=== PATIENT | male | born 1960 | race Caucasian/White ===

== ENCOUNTER → 2020-03-17 | Outpatient (CLI) | payer OTHER ==
--- NOTE | 2020-03-17 13:20 | ECHOS ---
STRESS ECHOCARDIOGRAM LUMASON: - Vial INDICATIONS: Chest pain. MEDICATIONS: Simvestatin, ASA. BASELINE HEART RATE: 77 BASELINE BLOOD PRESSURE: 112/55 MAXIMUM HEART RATE: 133 MAXIMUM BLOOD PRESSURE: 132/89 85% MPHR: 135 100% MPHR: 159 METS: MAXIMUM STAGE REACHED: 2 TOTAL EXERCISE TIME: 5:15 CLINICAL INFORMATION: Baseline rhythm is sinus mechanism, rate 77, normal axis and intervals. Normal echocardiogram. Baseline blood pressure 112/55 mmHg. Patient exercised on Parveen protocol for 5 minute 15 seconds, reaching a peak rate 133 beats per minute which is equal to 85% maximum predicted heart rate. Peak blood pressure 132/89 mmHg. Test was terminated due to fatigue. The patient had chest discomfort during exercise. He had 1- 1/[address]-segment depression inferolateral leads that improved gradually in recovery. FINDINGS: Baseline echocardiogram revealed normal wall motion. At peak exercise, there was a moderately size area of hypokinesis involving the anteroapical and anteroseptal wall with improvement and recovery. CONCLUSION: 1. Average exercise tolerance with positive electrocardiograph stress testing and abnormal electrocardiographic changes. 2. Abnormal stress echocardiogram with evidence of stress-induced ischemia involving the anteroseptal and anteroseptal wall consistent with obstructive disease involving the LAD territory. MMODL / IJN: [id number] /
--- NOTE | 2020-03-17 14:22 | HP ---
HISTORY AND PHYSICAL Mr. Lang is a 60-year-old male with known history of hyperlipidemia who for the last 2 months has been complaining of exertional chest discomfort associated with dyspnea. He subsequently was referred to undergo stress echocardiogram where he exercised for 6 minutes, but he had chest discomfort, EKG changes and evidence of stress-induced ischemia involving the anteroapical and anteroseptal wall. The patient symptoms has been an exertion pattern. He has no rest pain. He has some dizziness, no significant palpitation. No peripheral edema. No PND, orthopnea. He has no prior history of cardiac disease. His coronary risk factors are remarkable for the hyperlipidemia. He is nonsmoker, nondiabetic. No history of documented hypertension. MEDICATION: At home include simvastatin and Flomax. REVIEW OF SYSTEM: RESPIRATORY SYSTEM: No history of documented asthma, emphysema or bronchitis. GI SYSTEM: No recent GI bleeding, no peptic ulcer disease. SYSTEM: No dysuria or hematuria. NERVOUS SYSTEM: No history of stroke or seizure. PHYSICAL EXAMINATION: He is a 60-year-old male, alert, oriented, in no apparent distress. Blood pressure 112/50 with a heart rate in the 70s. HEAD: Normocephalic. EYES: Sclerae nonicteric. NECK: Good upstroke, no bruit, no jugular venous distention. LUNGS: Clear to auscultation. HEART: Regular rate and rhythm, S1, S2. No S3. No murmur or rub. ABDOMEN: Soft, nontender, positive bowel sounds, no organomegaly. EXTREMITIES: No edema, intact pulses. IMPRESSION: 1. Angina pectoris exertional pattern with positive stress echocardiogram in the LAD territory. 2. History of hyperlipidemia. RECOMMENDATION: In view of the finding and the results of his testing, I have recommended proceeding with coronary angiography to assess his status and guide his treatment. The rationale behind the procedures, risks, and complication were discussed with the patient who is in full understanding and agreement. The patient will be started on metoprolol tartrate 25 mg twice a day, and he will be scheduled to undergo the procedure on March 18. MMBRETTL / KODYN: [id number] /
== END | disposition home or self-care (01) ==
LOC: RADNMMAIN 09:44
PROVIDERS: ATTEND Family Medicine
DX: I99.8 Other disorder of circulatory system (principal)
CPT/HCPCS: 93351

== ENCOUNTER → 2020-03-17 | Outpatient (CLI) | payer OTHER ==
[2020-03-17 13:28] LABS: HCT 48.2 % (39.0-53.0); MCH 28.9 pg (25.0-35.0); MCHC 33.2 g/dL (31.0-37.0); MCV 87.2 fL (80.0-100.0); Mean Platelet Volume 7.1; Platelet Count 252 k/uL (150-450); RBC 5.53 m/uL (4.30-5.90); RDW 13.3 % (11.5-15.5); WBC 6.5 k/uL (3.8-10.6)
[2020-03-17 18:35] LABS: African American GFR (CKD) 93.7 (60.0-200.0); Albumin 4.5 g/dL (3.80-4.90); Albumin/Globulin Ratio 1.8 (1.60-3.17); Anion Gap 7.3 mmol/L (4.00-12.00); Calcium 9.6 mg/dL (8.7-10.3); Carbon Dioxide 27.7 mmol/L (21.6-31.8); Globulin 2.5 g/dL (1.6-3.3); Non-African American GFR(CKD) 80.9 (60.0-200.0); Potassium 4.5 mmol/L (3.5-5.5); Total Bilirubin 0.7 mg/dL (0.3-1.2)
== END | disposition home or self-care (01) ==
LOC: LABWHC1 12:31
PROVIDERS: ATTEND Internal Medicine Interventional Cardiology
DX: I20.9 Angina pectoris, unspecified (principal)
CPT/HCPCS: 36415; 80053; 85027

== ENCOUNTER 2020-03-18 09:18 | Inpatient (IN) | payer OTHER ==
[~2020-03-18 09:18] MED LIST: ALPRAZolam 0.5 MG TAB PO PRN; ASPIRIN 325 MG TAB PO STA; ATORVASTATIN 80 MG TAB PO STA; NITROGLYCERIN SL TABS 0.4 MG TAB SUBLINGUAL PRN; SODIUM CHLORIDE 0.9% 1,000 ML in EMPTY BAG 1 BAG IV ONE
[2020-03-18] MEDS ORDERED: fentaNYL (PF) 50 MCG/ML 2 ML AMP ONE (11:01)
[2020-03-18] MEDS ORDERED: LIDOCAINE 1% INJ 10MG/ML (20 ML MDV) ONE (11:01)
[2020-03-18] MEDS ORDERED: VERAPAMIL 2.5 MG/ML 2 ML AMP ONE (11:01)
[2020-03-18] MEDS ORDERED: MIDAZOLAM 2 MG/2 ML VIAL IV ONE (11:15)
[2020-03-18] MEDS ORDERED: fentaNYL (PF) 50 MCG/ML 2 ML AMP IV ONE (11:15)
[2020-03-18] MEDS ORDERED: LIDOCAINE 1% INJ 10MG/ML (20 ML MDV) SQ ONE (11:19)
[2020-03-18] MEDS ORDERED: VERAPAMIL SYRINGE (5 MG/10 ML) INTRAARTER ONE (11:20)
[2020-03-18] MEDS ORDERED: HEPARIN SODIUM 1,000 UN/ML (10ML VL) IV ONE (11:27)
[2020-03-18] MEDS ORDERED: IOPAMIDOL-370 125ML BTL INJ ONE (11:31)
[2020-03-18] MEDS ORDERED: RX INFO: IV CONTRAST WAS GIVEN 1 EACH MISC MISCELLANE PRN (11:51)
[2020-03-18] MEDS ORDERED: HEPARIN SODIUM,PORCINE 5,000 UNIT/ML 1 ML VIAL IV PRN (11:53)
[2020-03-18] MEDS ORDERED: SODIUM CHLORIDE 0.9% 1,000 ML IV SCH (12:00)
[2020-03-18] MEDS: NITROGLYCERIN OINT 1 INCH/GM PACKET TOPICAL SCH ×3 (12:37→22:53)
[2020-03-18 12:45] LABS: Basophils # (A) 0.1 k/uL (0-0.2); Basophils % (A) 1 %; Eosinophils # (A) 0.3 k/uL (0-0.7); Eosinophils % (A) 3 %; HCT 49.2 % (39.0-53.0); Lymphocytes # (A) 2.5 k/uL (1.0-4.8); Lymphocytes % (A) 30 %; MCH 28.2 pg (25.0-35.0); MCHC 32.5 g/dL (31.0-37.0); MCV 86.7 fL (80.0-100.0); Mean Platelet Volume 6.9; Monocytes # (A) 0.6 k/uL (0-1.0); Monocytes % (A) 7 %; Neutrophils # (A) 4.5 k/uL (1.3-7.7); Neutrophils % (A) 55 %; Platelet Count 278 k/uL (150-450); RBC 5.67 m/uL (4.30-5.90); RDW 13.4 % (11.5-15.5); WBC 8.3 k/uL (3.8-10.6)
[2020-03-18] MEDS ORDERED: MD COMMUNICATION TO PHARMACY 1 EACH MISC PO ONE (12:50)
[2020-03-18 13:12] LABS: Prothrombin Time 10.8 sec (9.0-12.0)
[2020-03-18 13:28] LABS: Partial Thromboplastin Time 97.6 sec (22.0-30.0)
[2020-03-18 14:16] LABS: ALT 23 U/L (4-49); AST 28 U/L (17-59); African American GFR (CKD) >90 (>60 ml/min/1.73 sqM); Albumin 4.4 g/dL (3.5-5.0); Alkaline Phosphatase 60 U/L (38-126); Anion Gap 9 mmol/L; Blood Urea Nitrogen 12 mg/dL (9-20); Calcium 9.6 mg/dL (8.4-10.2); Carbon Dioxide 26 mmol/L (22-30); Chloride 105 mmol/L (98-107); Cholesterol 177 mg/dL (<200); Glucose 101 mg/dL (74-99); HDL Cholesterol 57 mg/dL (40-60); LDL Cholesterol,Calculated 113 mg/dL (0-99); Magnesium 2.2 mg/dL (1.6-2.3); Non-African American GFR(CKD) 82 (>60 ml/min/1.73 sqM); Potassium 4.7 mmol/L (3.5-5.1); Sodium 140 mmol/L (137-145); Total Bilirubin 0.7 mg/dL (0.2-1.3); Total Protein 7.5 g/dL (6.3-8.2); Triglycerides 35 mg/dL (<150)
--- NOTE | 2020-03-18 14:46 | P.GSCN ---
History of Present Illness Consult date: 03/18/20 Reason for Consult: Coronary artery disease Requesting physician: Wen Bush History of present illness: Knuckler a 60-year-old active gentleman who follows on an outpatient basis with Dr. River. His only significant medical history includes hyperlipidemia and BPH. He is a lifelong nonsmoker. Apparently he has been having exertional chest pain and shortness of breath over the previous 2 months. He states that this pain has mostly been while working and is not too bad at home. He denies any chest pain or shortness of breath at rest. He underwent stress echocardiogram yesterday, however this had to be stopped at 6 minutes as the patient had chest discomfort as well as EKG changes suggestive of stress-induced ischemia involving the anteroapical and anteroseptal wall. He was recommended to undergo heart catheterization by Dr. Bush which was completed today and which demonstrated triple-vessel coronary artery disease with proximal LAD stenosis 99%, circumflex stenosis 90%, and RCA stenosis 70%. He was admitted to the hospital with consultation placed to Dr. Hdez from cardiothoracic surgery for surgical revascularization. Review of Systems Review of systems was completed and was negative except as noted - Cardiovascular Reports as per HPI, Reports chest pain, Reports dyspnea on exertion Past Medical History Past Medical History: Cancer, Chest Pain / Angina, GERD/Reflux, Hyperlipidemia, Prostate Disorder Additional Past Medical History / Comment(s): SOB w/exertion & chest pain for a few months, skin cancer History of Any Multi-Drug Resistant Organisms: None Reported Past Surgical History: Cholecystectomy, Orthopedic Surgery Additional Past Surgical History / Comment(s): arthroscopy knee Past Anesthesia/Blood Transfusion Reactions: No Reported Reaction Past Psychological History: No Psychological Hx Reported Smoking Status: Never smoker Past Alcohol Use History: Occasional Past Drug Use History: None Reported - Past Family History Mother Family Medical History: CVA/TIA Father Family Medical History: Cancer Additional Family Medical History / Comment(s): colon cancer. Medications and Allergies Home Medications Medication Instructions Recorded Confirmed Type Ascorbic Acid [Vitamin C] 500 mg PO DAILY 03/17/20 03/17/20 History Aspirin 81 mg PO DAILY 03/17/20 03/18/20 History Atorvastatin [Lipitor] 10 mg PO HS 03/17/20 03/18/20 History Cholecalciferol [Vitamin D3 (25 5,000 unit PO DAILY 03/17/20 03/18/20 History Mcg = 1000 Iu)] Famotidine [Pepcid] 20 mg PO BID 03/17/20 03/18/20 History Metoprolol Tartrate [Lopressor] 25 mg PO BID 03/17/20 03/18/20 History [place]-3 Fatty Acids/Fish Oil [Fish 1 each PO DAILY 03/17/20 03/18/20 History Oil 1,000 mg Softgel] Tamsulosin HCl [Flomax] 0.4 mg PO HS 03/17/20 03/18/20 History Ubidecarenone [Co Q-10] 100 mg PO DAILY 03/17/20 03/18/20 History Allergies Allergy/AdvReac Type Severity Reaction Status Date / Time Sulfa (Sulfonamide Allergy Unknown Verified 03/18/20 09:59 Antibiotics) sulfamethoxazole Allergy Unknown Verified 03/18/20 09:59 [From Bactrim] trimethoprim [From Bactrim] Allergy Unknown Verified 03/18/20 09:59 Surgical - Exam Vital Signs Temp Pulse Resp BP Pulse Ox 98.5 F 55 L 18 122/69 98 03/18/20 10:05 03/18/20 10:05 03/18/20 10:05 03/18/20 10:05 03/18/20 10:05 - General well developed, well nourished, no distress, no pain - Eyes normal ocular movement - ENT no hearing loss - Neck no masses, no bruits, trachea midline - Respiratory Lungs sounds clear bilaterally. Respirations even, nonlabored. Currently on room air with oxygen saturation 95%. No chest wall deformities. No clubbing or cyanosis present. - Cardiovascular S1, S2 present. Regular rate and rhythm, sinus rhythm on telemetry. Palpable peripheral pulses bilaterally. No edema present. No calf pain or tenderness noted. - Abdomen Abdomen: soft, non tender, bowel sounds - Genitourinary Deferred - Rectum Deferred - Integumentary no rash, no growths, no abnormal pigmentation - Neurologic normal coordination, normal sensation - Musculoskeletal normal posture - Psychiatric oriented to time, oriented to person, oriented to place, speech is normal, memory intact Results - Labs 03/18/20 12:29 03/18/20 12:29 Abnormal Lab Results - Last 24 Hours (Table) 03/18/20 03/18/20 Range/Units 12:29 12:29 APTT 97.6 H (22.0-30.0) sec Glucose 101 H (74-99) mg/dL LDL Cholesterol, Calc 113 H (0-99) mg/dL Diabetes panel 03/18/20 Range/Units 12:29 Sodium 140 (137-145) mmol/L Potassium 4.7 (3.5-5.1) mmol/L Chloride 105 (98-107) mmol/L Carbon Dioxide 26 (22-30) mmol/L BUN 12 (9-20) mg/dL Creatinine 0.99 (0.66-1.25) mg/dL Glucose 101 H (74-99) mg/dL Calcium 9.6 (8.4-10.2) mg/dL AST 28 (17-59) U/L ALT 23 (4-49) U/L Alkaline Phosphatase 60 (38-126) U/L Total Protein 7.5 (6.3-8.2) g/dL Albumin 4.4 (3.5-5.0) g/dL Triglycerides 35 (<150) mg/dL HDL Cholesterol 57 (40-60) mg/dL Calcium panel 03/18/20 Range/Units 12:29 Calcium 9.6 (8.4-10.2) mg/dL Albumin 4.4 (3.5-5.0) g/dL Pituitary panel 03/18/20 Range/Units 12:29 Sodium 140 (137-145) mmol/L Potassium 4.7 (3.5-5.1) mmol/L Chloride 105 (98-107) mmol/L Carbon Dioxide 26 (22-30) mmol/L BUN 12 (9-20) mg/dL Creatinine 0.99 (0.66-1.25) mg/dL Glucose 101 H (74-99) mg/dL Calcium 9.6 (8.4-10.2) mg/dL Adrenal panel 03/18/20 Range/Units 12:29 Sodium 140 (137-145) mmol/L Potassium 4.7 (3.5-5.1) mmol/L Chloride 105 (98-107) mmol/L Carbon Dioxide 26 (22-30) mmol/L BUN 12 (9-20) mg/dL Creatinine 0.99 (0.66-1.25) mg/dL Glucose 101 H (74-99) mg/dL Calcium 9.6 (8.4-10.2) mg/dL Total Bilirubin 0.7 (0.2-1.3) mg/dL AST 28 (17-59) U/L ALT 23 (4-49) U/L Alkaline Phosphatase 60 (38-126) U/L Total Protein 7.5 (6.3-8.2) g/dL Albumin 4.4 (3.5-5.0) g/dL - Imaging Additional studies: Heart catheterization films were reviewed with Dr. Hdez Assessment and Plan Assessment: 1. Coronary artery disease 2. Hyperlipidemia 3. BPH 4. Lifelong nonsmoker Plan: The patient was seen and examined at the bedside. His chart and heart catheterization films were reviewed with Dr. Hdez. The usual perioperative course of cardiac surgery was discussed with the patient and his , risks and benefits were reviewed, all questions were answered. Preoperative testing was initiated. Once completed we will calculate STS risk score and discuss with the patient and his . Recommend maximizing medical therapy with aspirin, statin, beta april. Tentatively we plan to perform myocardial revascularization with left internal mammary artery and endoscopic vein harvest as well as intraoperative transesophageal echocardiogram on March [address] Hdez pending the outcome of preoperative testing. Medical management of other comorbidities per primary care service. More recommendations to follow. Thank you Dr. Bush for this consult. We look forward to working with you in the care of your patient. Time with Patient: Greater than 30
--- NOTE | 2020-03-18 14:51 | US ---
EXAMINATION TYPE: US carotid duplex BILAT DATE OF EXAM: 03/18/2020 COMPARISON: NONE CLINICAL HISTORY: 60-year-old male Pre-Op Cardiac Surgery. No h/o stroke TECHNIQUE: Carotid duplex ultrasound examination. Indirect Doppler criteria was utilized. FINDINGS: EXAM MEASUREMENTS: RIGHT: Peak Systolic Velocity (PSV) cm/sec ----- Right CCA: 55.5 ----- Right ICA: 98.2 ----- Right ECA: 93.8 ICA/CCA ratio: 1.8 RIGHT: End Diastole cm/sec ----- Right CCA: 13.6 ----- Right ICA: 35.5 ----- Right ECA: 10.2 LEFT: Peak Systolic Velocity (PSV) cm/sec ----- Left CCA: 79.7 ----- Left ICA: 83.1 ----- Left ECA: 48.1 ICA/CCA ratio: 1.0 LEFT: End Diastole cm/sec ----- Left CCA: 16.3 ----- Left ICA: 30.8 ----- Left ECA: 11.8 VERTEBRALS (direction of flow): Right Vertebral: Antegrade Left Vertebral: Antegrade Rhythm: Normal Electroplating Sales Representative notes: Mild homogeneous plaque with no significant stenosis seen. IMPRESSION: No hemodynamically significant internal carotid artery stenosis on either side. Criteria for Assigning % of Stenosis / Diameter reduction (Estimation based on the indirect measurements of the internal carotid artery velocities (ICA PSV). 1. Normal (no stenosis)=ICA PSV < 125 cm/s: ratio < 2.0: ICA EDV<40 cm/s. 2. Less than 50% stenosis=ICA PSV < 125 cm/s: ratio < 2.0: ICA EDV<40 cm/s. 3. 50 to 69% stenosis=ICA PSV of 125 to 230 cm/s: ration 2.0 ? 4.0: ICA EDV 40-100 cm/s. 4. Greater than 70% stenosis to near occlusion= ICA PSV > 230 cm/s: ratio > 4.0: ICA EDV > 100 cm/s. 5. Near occlusion= ICA PSV velocities may be low or undetectable: variable ratio and ICA EDV. 6. Total occlusion=unable to detect flow.
--- NOTE | 2020-03-18 16:01 | XR ---
EXAMINATION TYPE: XR chest 2V DATE OF EXAM: 03/18/2020 COMPARISON: Chest x-ray September 30, 2010. HISTORY: Preoperative cardiac surgery. TECHNIQUE: Frontal and lateral views of the chest are obtained. FINDINGS: There is some chronic parenchymal change bilaterally without suspicious new focal air spac e opacity, pleural effusion, or pneumothorax seen. The cardiac silhouette size remains within normal limits. The osseous structures are intact. Cholecystectomy clips noted on lateral view. IMPRESSION: Chronic changes without acute pulmonary process.
[2020-03-18 16:22] LABS: Appearance,Urine Clear (Clear); Bilirubin,Urine Negative (Negative); Blood,Urine Negative (Negative); Color,Urine Light Yellow; Glucose,Urine (UA) Negative (Negative); Ketones,Urine Negative (Negative); Leukocyte Esterase,Urine Negative (Negative); Nitrite,Urine Negative (Negative); PH, Urine 7.5 (5.0-8.0); Protein,Urine Negative (Negative); Specific Gravity,Urine 1.042 (1.001-1.035); Urobilinogen,Urine <2.0 mg/dL (<2.0)
--- NOTE | 2020-03-18 16:26 | LTR ---
DATE OF SERVICE: 03/18/2020 RE: Raúl Lang Dear Dr. River; I had the pleasure to perform cardiac catheterization on Mr. Lang at [facility] on March 18, 2020 and a full copy of the procedure noted will be forwarded to you. In brief, he was found to have severe triple-vessel coronary artery disease and based on those findings, I recommend proceeding with evaluation for coronary artery bypass grafting, I will keep you updated on his progress and thank you again for allowing me to participate in this patient's care. Please feel free to call for any questions. Sincerely yours, MD RAHEEL AllenL / KODYN: [id number] /
--- NOTE | 2020-03-18 16:26 | CC ---
CARDIAC CATHETERIZATION REPORT Mr. Lang is a 60-year-old male with known history of hyperlipidemia, who has been complaining of exertional chest discomfort, underwent a stress echocardiogram,. revealed evidence of anteroseptal and anteroapical hypokinesis. In view of that, recommendation made regarding cardiac catheterization. The procedures, risks, and complication were discussed with the patient who is in full understanding and agreement. PROCEDURE: Patient was brought to laborer pipeline in the fasting semi-sedated state after receiving fentanyl and Benadryl and achieving moderate conscious sedated state. Using Xylocaine anesthesia and Seldinger technique, a 6-Armenian sheath was introduced in the right radial artery. Selective right and left coronary angiography performed using 5-Armenian 3.5 bend right and left Moe catheter, multiple views of the coronary artery including hemiaxial views obtained. Following that, 5-Armenian tight pigtail catheter was introduced into the left ventricle and a 30-degree HINES view of the left ventricle was obtained. Following that, catheter and sheath were removed. Hemostasis was obtained with deployment of a TR band. There was no immediate complication. Patient is returned to his room in stable condition. Of note, the patient received 5000 units of intravenous heparin as well as intra-arterial verapamil. FINDINGS: LEFT MAIN: This is a large-sized vessel, bifurcating into left circumflex, left anterior descending artery. Left main coronary artery has no evidence of high-grade stenosis. LEFT ANTERIOR DESCENDING ARTERY: This is a large-sized vessel, reaching toward the apex with a wraparound apex segment, giving rise to a large diagonal branch proximally. At the takeoff of the diagonal branch, there is a 99% stenosis involving the takeoff of the diagonal branch. The rest of the vessel has mild intimal disease without any evidence of high-grade stenosis. LEFT CIRCUMFLEX: This is a nondominant vessel, moderate in caliber, giving rise to 3 obtuse marginal branches, the first one is the largest in caliber, the first obtuse marginal branch has a 94% stenosis at the takeoff. There is intimal disease beyond that without any evidence of high-grade stenosis. RIGHT CORONARY ARTERY: This is a dominant vessel, large in caliber, bifurcating into PDA and posterolateral segment and branches. The right coronary artery proximally has a 70% stenosis. There is intimal disease throughout the course of the LAD of the right coronary artery without any evidence of high-grade stenosis. The PLV has an an area of stenosis of 70%-80%. The rest of the vessel has intimal disease without any evidence of high-grade stenosis. LEFT VENTRICULOGRAM: Left ventriculogram was performed in 30-degree HINES view and revealed mild mid anterior wall hypokinesis. The estimated ejection fraction is 50%. There was no significant mitral regurgitation. HEMODYNAMICS: There was no gradient across the aortic valve. The left ventricular end- diastolic pressure was 16-18 mmHg. CONCLUSION: 1. Severe triple-vessel coronary disease. 2. Minimally impaired left ventricular systolic function. RECOMMENDATION: In view of finding anatomy, I recommend proceeding with evaluation for coronary artery bypass grafting. The findings as well as recommendations were discussed with the patient and his family and they are in full understanding and agreement. Duration of sedation of 16 minutes. MMBRETTL / IJN: [id number] /
[2020-03-18] MEDS: FAMOTIDINE 20 MG TAB PO SCH (17:54)
--- NOTE | 2020-03-18 18:24 | ECHOF ---
Referral Reason:preop cabg MEASUREMENTS -------- HEIGHT: 180.3 cm WEIGHT: 95.3 kg BP: RVIDd: 3.1 cm (< 3.3) IVSd: 1.2 cm (0.6 - 1.1) LVIDd: 4.6 cm (3.9 - 5.3) LVPWd: 1.0 cm (0.6 - 1.1) IVSs: 1.7 cm LVIDs: 1.8 cm LVPWs: 1.7 cm LAESV Index (A-L): 14.49 ml/m Ao Diam: 2.8 cm (2.0 - 3.7) AV Cusp: 2.2 cm (1.5 - 2.6) LA Diam: 2.4 cm (2.7 - 3.8) MV EXCURSION: 8.330 mm (> 18.000) MV EF SLOPE: 55 mm/s (70 - 150) EPSS: 0.9 cm MV E Elias: 0.72 m/s MV DecT: 186 ms MV A Elias: 0.69 m/s MV E/A Ratio: 1.04 RAP: 5.00 mmHg RVSP: 9.06 mmHg TAPSE: 16.96 mm FINDINGS -------- Sinus rhythm. This was a technically good study. The left ventricular size is normal. There is mild concentric left ventricular hypertrophy. Overa ll left ventricular systolic function is normal with, an EF between 55 - 60 %. The diastolic fillin g pattern is normal for the age of the patient 11.13. The right ventricle is normal in size. Normal LA size by volume 22+/-6 ml/m2. The right atrial size is normal. Interatrial and interventricular septum intact. The aortic valve is trileaflet, and appears structurally normal. No aortic stenosis or regurgitation. The mitral valve is normal. There is trace mitral regurgitation. The tricuspid valve appears structurally normal. Trace tricuspid regurgitation present. Right reinaldo tricular systolic pressure is normal at < 35 mmHg. There is no pulmonic regurgitation present. The aortic root size is normal. The inferior vena cava is mildly dilated. There is no pericardial effusion. CONCLUSIONS -------- 1. There is mild concentric left ventricular hypertrophy. 2. Overall left ventricular systolic function is normal with, an EF between 55 - 60 %. 3. The diastolic filling pattern is normal for the age of the patient 11.13 4. Normal LA size by volume 22+/-6 ml/m2. 5. The aortic valve is trileaflet, and appears structurally normal. No aortic stenosis or regurgitati on. 6. There is trace mitral regurgitation. 7. Trace tricuspid regurgitation present. 8. The inferior vena cava is mildly dilated. 9. There is no pericardial effusion. CONSULTING ANALYST: Gilma Estrada RDCS
[2020-03-18] MEDS: HEPARIN SOD,PORK IN 0.45% NACL 25,000 UNIT in 0.45% NACL 1 250ML.BAG IV SCH (18:47)
[2020-03-18] MEDS: METOPROLOL TARTRATE 25 MG TAB PO SCH (20:47)
[2020-03-18] MEDS: TAMSULOSIN 0.4 MG CAP.ER.24H PO SCH (20:47)
[2020-03-18] MEDS: MUPIROCIN 2% OINT 22 GM TUBE NASAL SCH (20:47)
[2020-03-18 20:57] LABS: Hemoglobin A1C 6.2 % (4.0-6.0)
[2020-03-19] MEDS: ALPRAZolam 0.25 MG TAB PO PRN ×2 (01:42→23:19)
[2020-03-19 03:29] LABS: Hepatitis A Antibody IgM Non-Reactive (Non-Reactive); Hepatitis B Core IgM Non-Reactive (Non-Reactive); Hepatitis B Surface Antigen Non-Reactive (Non-Reactive); Hepatitis C IgG Antibody Non-Reactive (Non-Reactive)
[2020-03-19 07:58] LABS: Basophils # (A) 0.1 k/uL (0-0.2); Basophils % (A) 1 %; Eosinophils # (A) 0.3 k/uL (0-0.7); Eosinophils % (A) 3 %; HCT 46.7 % (39.0-53.0); HGB 14.8 gm/dL (13.0-17.5); Lymphocytes # (A) 2.3 k/uL (1.0-4.8); Lymphocytes % (A) 24 %; MCH 27.7 pg (25.0-35.0); MCHC 31.8 g/dL (31.0-37.0); Mean Platelet Volume 7.2; Monocytes # (A) 0.7 k/uL (0-1.0); Monocytes % (A) 7 %; Neutrophils # (A) 5.8 k/uL (1.3-7.7); Neutrophils % (A) 62 %; Platelet Count 249 k/uL (150-450); RBC 5.36 m/uL (4.30-5.90); RDW 13.5 % (11.5-15.5); WBC 9.5 k/uL (3.8-10.6)
[2020-03-19 08:30] LABS: African American GFR (CKD) >90 (>60 ml/min/1.73 sqM); Anion Gap 6 mmol/L; Blood Urea Nitrogen 15 mg/dL (9-20); Calcium 9.3 mg/dL (8.4-10.2); Carbon Dioxide 25 mmol/L (22-30); Chloride 106 mmol/L (98-107); Glucose 102 mg/dL (74-99); Non-African American GFR(CKD) 90 (>60 ml/min/1.73 sqM); Potassium 4.4 mmol/L (3.5-5.1); Sodium 137 mmol/L (137-145)
[2020-03-19] MEDS: METOPROLOL TARTRATE 25 MG TAB PO SCH ×2 (08:35→21:03)
[2020-03-19] MEDS: ASPIRIN 81 MG PO SCH (08:36)
[2020-03-19] MEDS: ATORVASTATIN 80 MG TAB PO SCH (08:36)
[2020-03-19] MEDS: NITROGLYCERIN OINT 1 INCH/GM PACKET TOPICAL SCH ×3 (08:36→23:18)
[2020-03-19] MEDS: FAMOTIDINE 20 MG TAB PO SCH ×2 (08:36→19:32)
[2020-03-19] MEDS: MUPIROCIN 2% OINT 22 GM TUBE NASAL SCH ×2 (08:37→21:03)
--- NOTE | 2020-03-19 08:52 | P.PN ---
Subjective Progress Note Date: 03/19/20 Principal diagnosis: Coronary artery disease. Previous medical history of hyperlipidemia, BPH, lifelong nonsmoker, father with history of aortic aneurysm The patient is currently sitting up in bed in no acute distress. Denies any chest pain or shortness of breath. Has been ambulatory in the hallway without difficulty. He was seen and examined yesterday with Dr. Hdez, our plan is for CABG early next week. All questions were answered to the best of my ability. The patient did say that he occasionally has a feeling of fluttering at the top of his abdomen, states he has not had in quite a while but did want us to now as his father had a history of aortic aneurysm. Objective - Vital Signs Vital signs: Vital Signs Temp 97.5 F L 03/19/20 03:47 Pulse 56 L 03/19/20 03:47 Resp 16 03/19/20 03:47 BP 98/54 03/19/20 03:47 Pulse Ox 97 03/19/20 03:47 Intake & Output 03/18/20 03/19/20 03/19/20 18:59 06:59 18:59 Intake Total 300 848.167 Balance 300 848.167 Weight 95.254 kg 95 kg Intake: IV 300 Intake, IV Titration 68.167 Amount Heparin Sod,Pork in 0.45% 68.167 NaCl 25,000 unit In 0.45 % NaCl 1 250ml.bag @ 10. 498 UNITS/KG/HR 10 mls/hr IV .Q24H RERE Rx#: [id number] Oral 780 Other: # Voids 2 2 - Constitutional General appearance: Present: cooperative, no acute distress - Respiratory Details: Lungs sounds clear bilaterally. Respirations even, nonlabored. Currently on room air with oxygen saturation 97%. Able to achieve 3500 mL on his incentive spirometry - Cardiovascular Details: S1, S2 present. Regular rate and rhythm, sinus rhythm on telemetry. Palpable peripheral pulses bilaterally. No edema present. No calf pain or tenderness noted. - Gastrointestinal Gastrointestinal Comment(s): Abdomen soft, nontender, nondistended. No pulsatile mass felt - Genitourinary Genitourinary Comment(s): Continues to void - Integumentary Integumentary Comment(s): Skin is warm and dry with evidence of good perfusion - Neurologic Neurologic: Present: CNII-XII intact - Musculoskeletal Musculoskeletal: Present: gait normal, strength equal bilaterally - Psychiatric Psychiatric: Present: A&O x's 3, appropriate affect, intact judgment & insight - Allied health notes Allied health notes reviewed: nursing - Labs CBC & Chem 7: 03/19/20 07:18 03/19/20 07:18 Labs: Abnormal Lab Results - Last 24 Hours (Table) 03/18/20 03/18/20 03/18/20 Range/Units 12:29 12:29 12:29 APTT 97.6 H (22.0-30.0) sec Glucose 101 H (74-99) mg/dL Hemoglobin A1c 6.2 H (4.0-6.0) % LDL Cholesterol, Calc 113 H (0-99) mg/dL Ur Specific [place] (1.001-1.035) 03/18/20 03/19/20 Range/Units 14:30 01:06 APTT 43.2 H (22.0-30.0) sec Glucose (74-99) mg/dL Hemoglobin A1c (4.0-6.0) % LDL Cholesterol, Calc (0-99) mg/dL Ur Specific [place] 1.042 H (1.001-1.035) Microbiology - Last 24 Hours (Table) 03/18/20 13:17 Nasal Screen MRSA/MSSA - Preliminary Nasal Swab Assessment and Plan Assessment: 1. Coronary artery disease 2. Hyperlipidemia 3. BPH 4. Lifelong nonsmoker 5. Father with history of aortic aneurysm Plan: 1. Continue aspirin, statin, beta april therapy 2. Encourage incentive spirometry use 3. Increase activity, ambulate as tolerated 4. Continue preoperative teaching 5. STS risk calculated and discussed with the patient 6. Our plan is for myocardial revascularization with left internal mammary artery and endoscopic vein harvest early next week with Dr. Hdez 7. Will obtain CT of chest to evaluate aorta 8. Medical management of other comorbidities per primary care service 9. More recommendations to follow Time with Patient: Greater than 30
--- NOTE | 2020-03-19 09:37 | PN ---
PROGRESS NOTE Mr. Lang is a 60-year-old male with history of hyperlipidemia, who presented with symptoms of chest discomfort and abnormal stress echocardiogram, underwent cardiac catheterization, was found to have severe triple-vessel coronary artery disease. He was evaluated by Dr. Hdez and scheduled to undergo coronary bypass grafting early next week. He is doing well this morning, he is denying any chest pain, his breathing has been stable. He denies any dizziness, palpitation. He denies any nausea. He continued to be on aspirin once a day Lipitor 80 mg daily, IV heparin, metoprolol tartrate 25 mg twice a day and nitroglycerin paste 1 inch q.8 hours. PHYSICAL EXAMINATION: Blood pressure 110/50 with a heart rate in the 60s. LUNGS: Clear. HEART: Regular rate and rhythm, S1, S2. No S3. No rub. ABDOMEN: Soft, nontender. EXTREMITIES: No edema. Right radial pulse intact. LAB DATA: Revealed BUN and creatinine of 15 and 0.92, potassium 4.4, hemoglobin 14.8. IMPRESSION: 1. Severe triple-vessel coronary artery disease with new onset angina pectoris. 2. Hyperlipidemia. RECOMMENDATION: Patient will continue on the IV heparin. He will be scheduled to undergo coronary bypass grafting next week. Depending on his progress, further recommendation will be made. MMODL / IJN: [id number] /
--- NOTE | 2020-03-19 12:59 | CT ---
EXAMINATION TYPE: CT chest wo con DATE OF EXAM: 03/19/2020 COMPARISON: None HISTORY: Assess aorta CT DLP: 445.4 mGycm, Automated exposure control for dose reduction was used. CONTRAST: Performed injected with 0 mL of Isovue 300. TECHNIQUE: Axial images were obtained at 5 mm thick sections. Reconstructed images are reviewed on YES[employer]TAP computer in the coronal plane. FINDINGS: Portion of the thyroid visualized is normal. No suspicious lung nodules or focal infiltrates are present. No enlarged mediastinal or hilar adenopathy is evident. The ascending aorta diameter at the level o f the main pulmonary artery is 3.6 cm. The main pulmonary artery diameter at the bifurcation is 3.2 cm. Coronary artery calcification is present. Limited CT sections are obtained through the upper abdomen. Abdomen is essentially unremarkable. IMPRESSIONS: 1. No acute pulmonary process.
--- NOTE | 2020-03-19 13:06 | P.CNPUL ---
History of Present Illness Consult date: 03/19/20 Requesting physician: Teddy Hdez Reason for consult: other (Pulmonary and critical care management) Chief complaint: Chest pain History of present illness: This is a very pleasant 60-year-old gentleman who follows with Dr. Medrano as his primary care provider. He has a history of hyperlipidemia. He had been developing exertional chest discomfort and a stress echocardiogram revealed anteroseptal and anterior apical hypokinesis. He was brought in yesterday for an elective cardiac catheterization and was found to have a 99% stenosis of the LAD, 94% stenosis of the circumflex and 70% stenosis of the proximal RCA, should be elevated with an area of 70-80%. Ejection fraction 55-60%. He has been seen and evaluated by cardiothoracic surgery and the plan is for coronary revascularization early next week. Currently he is seen in consultation on the selective care unit. He is awake and alert in no acute distress. Resting quite comfortably in bed. Denies any chest discomfort currently. No shortness of breath, cough or congestion. He is a lifelong nonsmoker. He is maintaining O2 saturations in the mid 90s on room air. Pulmonary function testing pending. He's afebrile. Hemodynamically stable. White count 9.5. Hemoglobin 14.8. Sodium 137. Potassium 4.4. Creatinine 0.92. Ashley virus not detected. He remains on a heparin drip. Review of Systems REVIEW OF SYSTEMS: CONSTITUTIONAL: Denies any recent significant weight loss or weight gain. EYES: Denies change in vision. EARS, NOSE, MOUTH, THROAT: Denies headaches, denies sore throat. CARDIOVASCULAR: Positive for exertional chest pain, no palpitations or syncopal episodes. RESPIRATORY: Denies shortness of breath, cough, congestion or hemoptysis. GASTROINTESTINAL: Denies change in appetite, denies abdominal pain GENITOURINARY: Denies hematuria, denies infections. MUSKULOSKELETAL: Denies pain, denies swelling. INTEGUMENTARY: Denies rash, denies eczema. NEUROLOGICAL: Denies recent memory loss, no recent seizure activity. PSYCHIATRIC: Denies anxiety, denies depression. HEMATOLOGIC/LYMPHATIC: Denies anemia, denies enlarged lymph nodes. Past Medical History Past Medical History: Cancer, Chest Pain / Angina, GERD/Reflux, Hyperlipidemia, Prostate Disorder Additional Past Medical History / Comment(s): SOB w/exertion & chest pain for a few months, skin cancer History of Any Multi-Drug Resistant Organisms: None Reported Past Surgical History: Cholecystectomy, Orthopedic Surgery Additional Past Surgical History / Comment(s): arthroscopy knee Past Anesthesia/Blood Transfusion Reactions: No Reported Reaction Past Psychological History: No Psychological Hx Reported Smoking Status: Never smoker Past Alcohol Use History: Occasional Past Drug Use History: None Reported - Past Family History Mother Family Medical History: CVA/TIA Father Family Medical History: Cancer Additional Family Medical History / Comment(s): colon cancer. Medications and Allergies Home Medications Medication Instructions Recorded Confirmed Type Ascorbic Acid [Vitamin C] 500 mg PO DAILY 03/17/20 03/17/20 History Aspirin 81 mg PO DAILY 03/17/20 03/18/20 History Atorvastatin [Lipitor] 10 mg PO HS 03/17/20 03/18/20 History Cholecalciferol [Vitamin D3 (25 5,000 unit PO DAILY 03/17/20 03/18/20 History Mcg = 1000 Iu)] Famotidine [Pepcid] 20 mg PO BID 03/17/20 03/18/20 History Metoprolol Tartrate [Lopressor] 25 mg PO BID 03/17/20 03/18/20 History [place]-3 Fatty Acids/Fish Oil [Fish 1 each PO DAILY 03/17/20 03/18/20 History Oil 1,000 mg Softgel] Tamsulosin HCl [Flomax] 0.4 mg PO HS 03/17/20 03/18/20 History Ubidecarenone [Co Q-10] 100 mg PO DAILY 03/17/20 03/18/20 History Allergies Allergy/AdvReac Type Severity Reaction Status Date / Time Sulfa (Sulfonamide Allergy Unknown Verified 03/18/20 09:59 Antibiotics) sulfamethoxazole Allergy Unknown Verified 03/18/20 09:59 [From Bactrim] trimethoprim [From Bactrim] Allergy Unknown Verified 03/18/20 09:59 Physical Exam Vitals: Vital Signs Temp Pulse Resp BP Pulse Ox 03/19/20 08:00 98.2 F 60 18 110/57 97 03/19/20 03:47 97.5 F L 56 L 16 98/54 97 03/19/20 00:00 98.5 F 59 L 16 100/59 97 03/18/20 20:00 97.9 F 60 18 106/60 96 03/18/20 15:49 98.2 F 63 16 110/58 95 03/18/20 15:36 16 110/58 95 03/18/20 14:36 63 16 117/65 95 03/18/20 13:36 16 113/59 95 03/18/20 13:01 52 L 16 126/66 95 Intake and Output 03/18/20 03/19/20 03/19/20 22:59 06:59 14:59 Intake Total 540 308.167 480 Output Total 300 Balance 540 308.167 180 Intake: Intake, IV Titration 68.167 Amount Heparin Sod,Pork in 0.45% 68.167 NaCl 25,000 unit In 0.45 % NaCl 1 250ml.bag @ 10. 498 UNITS/KG/HR 10 mls/hr IV .Q24H [facility] Rx#: [id number] Oral 540 240 480 Output: Urine 300 Other: Voiding Method Toilet # Voids 2 2 Weight 95 kg GENERAL EXAM: Alert, very pleasant 60-year-old gentleman, on room air, comfortable in no apparent distress. HEAD: Normocephalic. EYES: Normal reaction of pupils, equal size. NOSE: Clear with pink turbinates. THROAT: No erythema or exudates. NECK: No masses, no JVD. CHEST: No chest wall deformity. LUNGS: Equal air entry with no crackles, wheeze, rhonchi or dullness. CVS: S1 and S2 normal with no audible murmur, regular rhythm. ABDOMEN: No hepatosplenomegaly, normal bowel sounds, no guarding or rigidity. SPINE: No scoliosis or deformity SKIN: No rashes CENTRAL NERVOUS SYSTEM: No focal deficits, tone is normal in all 4 extremities. EXTREMITIES: There is no peripheral edema. No clubbing, no cyanosis. Peripheral pulses are intact. Results - Laboratory Findings CBC and BMP: 03/19/20 07:18 03/19/20 07:18 PT/INR, D-dimer PT 10.8 sec (9.0-12.0) 03/18/20 12:29 INR 1.0 (<1.2) 03/18/20 12:29 Abnormal lab findings: Abnormal Labs 03/18/20 03/18/20 03/18/20 12:29 12:29 12:29 APTT 97.6 H Glucose 101 H Hemoglobin A1c 6.2 H LDL Cholesterol, Calc 113 H Ur Specific [place] 03/18/20 03/19/20 03/19/20 14:30 01:06 07:18 APTT 43.2 H 54.7 H Glucose Hemoglobin A1c LDL Cholesterol, Calc Ur Specific [place] 1.042 H 03/19/20 07:18 APTT Glucose 102 H Hemoglobin A1c LDL Cholesterol, Calc Ur Specific [place] - Diagnostic Findings Chest x-ray: image reviewed (No acute pulmonary process) CT scan - chest: image reviewed (No acute pulmonary process) Assessment and Plan Assessment: 1 Exertional chest discomfort in a patient found to have significant triple-vess el coronary artery disease, plan is for coronary revascularization 2 Hyperlipidemia 3 Benign prostatic hyperplasia 4 Gastroesophageal reflux disease 5 Lifelong nonsmoker Plan: The patient was seen and evaluated by Dr. Ortiz Chest x-ray, CAT scans and labs all reviewed Plan is for coronary revascularization early next week Pulmonary function testing pending Educated regarding the use and importance of the incentive spirometer Continued on heparin drip for now We'll continue to follow and make further recommendations based on his clinical status I, the cosigning physician, performed a history & physical examination of the patient. Lungs sounds are clear. Maintaining good O2 saturations in the 90s on room air. I discussed the assessment and plan of care with my nurse practitioner, Karis Monreal. I attest to the above consultation as dictated by her. Time with Patient: Greater than 30
[2020-03-19] MEDS ORDERED: MAGNESIUM HYDROXIDE 2,400 MG/10 ML CUP PO PRN (15:03)
[2020-03-19] MEDS: HEPARIN SOD,PORK IN 0.45% NACL 25,000 UNIT in 0.45% NACL 1 250ML.BAG IV SCH (16:18)
[2020-03-19] MEDS: TAMSULOSIN 0.4 MG CAP.ER.24H PO SCH (21:02)
[2020-03-19] MEDS: SENNOSIDES-DOCUSATE SODIUM 1 EACH TAB PO SCH (21:03)
[2020-03-20] MEDS: FAMOTIDINE 20 MG TAB PO SCH ×2 (06:57→17:32)
[2020-03-20 07:07] LABS: Basophils # (A) 0.1 k/uL (0-0.2); Basophils % (A) 1 %; Eosinophils # (A) 0.4 k/uL (0-0.7); Eosinophils % (A) 4 %; HCT 46.2 % (39.0-53.0); HGB 15.2 gm/dL (13.0-17.5); Lymphocytes # (A) 2.6 k/uL (1.0-4.8); Lymphocytes % (A) 29 %; MCH 28.4 pg (25.0-35.0); MCHC 32.9 g/dL (31.0-37.0); MCV 86.6 fL (80.0-100.0); Monocytes # (A) 0.9 k/uL (0-1.0); Monocytes % (A) 10 %; Neutrophils # (A) 4.7 k/uL (1.3-7.7); Neutrophils % (A) 53 %; Platelet Count 243 k/uL (150-450); RBC 5.33 m/uL (4.30-5.90); RDW 13.2 % (11.5-15.5); WBC 8.9 k/uL (3.8-10.6)
[2020-03-20 07:09] LABS: African American GFR (CKD) >90 (>60 ml/min/1.73 sqM); Anion Gap 6 mmol/L; Blood Urea Nitrogen 12 mg/dL (9-20); Calcium 9.2 mg/dL (8.4-10.2); Carbon Dioxide 27 mmol/L (22-30); Chloride 105 mmol/L (98-107); Glucose 102 mg/dL (74-99); Non-African American GFR(CKD) 90 (>60 ml/min/1.73 sqM); Potassium 4.3 mmol/L (3.5-5.1); Sodium 138 mmol/L (137-145)
--- NOTE | 2020-03-20 08:33 | P.PN ---
Subjective Progress Note Date: 03/20/20 Principal diagnosis: Coronary artery disease. Previous medical history of hyperlipidemia, BPH, lifelong nonsmoker, father with history of aortic aneurysm, both grandfathers diagnosed with heart disease in their early 50s The patient is currently sitting up in a chair in no acute distress. Denies shortness of breath, did have 1 brief episode of mild chest pressure yesterday a fternoon which abated on its own without treatment, currently chest pain-free. Has been ambulatory in the hallway without difficulty. He was a bit teary-eyed this morning as his is retiring Sunday and they had travel plans which had to be canceled. Otherwise no new concerns Objective - Vital Signs Vital signs: Vital Signs Temp 97.8 F 03/19/20 20:00 Pulse 59 L 03/20/20 04:00 Resp 16 03/20/20 04:00 BP 105/56 03/20/20 04:00 Pulse Ox 96 03/20/20 04:00 Intake & Output 03/19/20 03/20/20 03/20/20 18:59 06:59 18:59 Intake Total 1255.004 500 Output Total 300 Balance 955.004 500 Weight 95 kg 95.4 kg Intake: Intake, IV Titration 175.004 Amount Heparin Sod,Pork in 0.45% 175.004 NaCl 25,000 unit In 0.45 % NaCl 1 250ml.bag @ 10. 498 UNITS/KG/HR 10 mls/hr IV .Q24H [facility] Rx#: [id number] Oral 1080 500 Output: Urine 300 Other: Voiding Method Toilet Toilet # Voids 1 2 # Bowel Movements 1 - Constitutional General appearance: Present: cooperative, no acute distress - Respiratory Details: Lungs sounds clear bilaterally. Respirations even, nonlabored. Currently on room air with oxygen saturation 96%. Able to achieve 3000 mL on his incentive spirometry - Cardiovascular Details: S1, S2 present. Regular rate and rhythm, sinus rhythm on telemetry. Palpable peripheral pulses bilaterally. No edema present. No calf pain or tenderness noted. - Gastrointestinal Gastrointestinal Comment(s): Abdomen soft, nontender, nondistended. No pulsatile mass felt - Genitourinary Genitourinary Comment(s): Continues to void - Integumentary Integumentary Comment(s): Skin is warm and dry with evidence of good perfusion - Neurologic Neurologic: Present: CNII-XII intact - Musculoskeletal Musculoskeletal: Present: gait normal, strength equal bilaterally - Psychiatric Psychiatric: Present: A&O x's 3, appropriate affect, intact judgment & insight - Allied health notes Allied health notes reviewed: nursing - Labs CBC & Chem 7: 03/20/20 06:15 03/20/20 06:15 Labs: Abnormal Lab Results - Last 24 Hours (Table) 03/19/20 03/20/20 03/20/20 Range/Units 07:18 06:15 06:15 APTT 69.4 H (22.0-30.0) sec Glucose 102 H 102 H (74-99) mg/dL Microbiology - Last 24 Hours (Table) 03/18/20 13:17 Nasal Screen MRSA/MSSA - Final Nasal Swab Assessment and Plan Assessment: 1. Coronary artery disease 2. Hyperlipidemia 3. BPH 4. Lifelong nonsmoker 5. Father with history of aortic aneurysm 6. Both grandfathers with coronary artery diagnosis in their early 50s Plan: 1. Continue aspirin, statin, IV heparin, beta april therapy 2. Encourage incentive spirometry use 3. Increase activity, ambulate as tolerated 4. Continue preoperative teaching 5. Our plan is for myocardial revascularization with left internal mammary artery and endoscopic vein harvest Sunday with Dr. Hdez 6. CT of chest reviewed 7. Medical management of other comorbidities per primary care service 8. More recommendations to follow Time with Patient: Greater than 30
[2020-03-20] MEDS: ASPIRIN 81 MG PO SCH (08:44)
[2020-03-20] MEDS: METOPROLOL TARTRATE 25 MG TAB PO SCH ×2 (08:44→21:13)
[2020-03-20] MEDS: ATORVASTATIN 80 MG TAB PO SCH (08:45)
[2020-03-20] MEDS: NITROGLYCERIN OINT 1 INCH/GM PACKET TOPICAL SCH ×3 (08:45→23:51)
--- NOTE | 2020-03-20 11:43 | P.PN ---
Subjective Progress Note Date: 03/20/20 Principal diagnosis: Coronary artery disease This is a very pleasant 60-year-old gentleman who follows with Dr. Medrano as his primary care provider. He has a history of hyperlipidemia. He had been developing exertional chest discomfort and a stress echocardiogram revealed ante roseptal and anterior apical hypokinesis. He was brought in yesterday for an elective cardiac catheterization and was found to have a 99% stenosis of the LAD, 94% stenosis of the circumflex and 70% stenosis of the proximal RCA, should be elevated with an area of 70-80%. Ejection fraction 55-60%. He has been seen and evaluated by cardiothoracic surgery and the plan is for coronary revascularization early next week. Currently he is seen in consultation on the selective care unit. He is awake and alert in no acute distress. Resting quite comfortably in bed. Denies any chest discomfort currently. No shortness of breath, cough or congestion. He is a lifelong nonsmoker. He is maintaining O2 saturations in the mid 90s on room air. Pulmonary function testing pending. He's afebrile. Hemodynamically stable. White count 9.5. Hemoglobin 14.8. Sodium 137. Potassium 4.4. Creatinine 0.92. Ashley virus not detected. He remains on a heparin drip. The patient is seen today 03/20/2020 in follow-up on the selective care unit. He is currently sitting up in a chair at the bedside. Awake and alert in no acute distress. Maintaining good O2 saturation 90s on room air. No shortness o f breath, cough or congestion. No chest pain, palpitations lightheadedness or dizziness. He remains on heparin drip. Nitropaste in place. White count 8.9. Hemoglobin 15.2. Sodium 138. Potassium 4.3. Creatinine 0.92. Objective - Vital Signs Vital signs: Vital Signs Temp 97.9 F 03/20/20 08:40 Pulse 72 03/20/20 08:40 Resp 16 03/20/20 08:40 BP 120/60 03/20/20 08:40 Pulse Ox 98 03/20/20 08:40 Intake & Output 03/19/20 03/20/20 03/20/20 18:59 06:59 18:59 Intake Total 1255.004 500 195.44 Output Total 300 Balance 955.004 500 195.44 Weight 95 kg 95.4 kg Intake: Intake, IV Titration 175.004 195.44 Amount Heparin Sod,Pork in 0.45% 175.004 195.44 NaCl 25,000 unit In 0.45 % NaCl 1 250ml.bag @ 10. 498 UNITS/KG/HR 10 mls/hr IV .Q24H [facility] Rx#: [id number] Oral 1080 500 Output: Urine 300 Other: Voiding Method Toilet Toilet Toilet # Voids 1 2 # Bowel Movements 1 - Exam GENERAL EXAM: Alert, active, very pleasant 60-year-old gentleman, on room air, comfortable in no apparent distress. HEAD: Normocephalic. EYES: Normal reaction of pupils, equal size. NOSE: Clear with pink turbinates. THROAT: No erythema or exudates. NECK: No masses, no JVD. CHEST: No chest wall deformity. LUNGS: Equal air entry with no crackles, wheeze, rhonchi or dullness. CVS: S1 and S2 normal with no audible murmur, regular rhythm. ABDOMEN: No hepatosplenomegaly, normal bowel sounds, no guarding or rigidity. SPINE: No scoliosis or deformity SKIN: No rashes CENTRAL NERVOUS SYSTEM: No focal deficits, tone is normal in all 4 extremities. EXTREMITIES: There is no peripheral edema. No clubbing, no cyanosis. Peripheral pulses are intact. - Labs CBC & Chem 7: 03/20/20 06:15 03/20/20 06:15 Labs: Abnormal Lab Results - Last 24 Hours (Table) 03/20/20 03/20/20 Range/Units 06:15 06:15 APTT 69.4 H (22.0-30.0) sec Glucose 102 H (74-99) mg/dL Microbiology - Last 24 Hours (Table) 03/18/20 13:17 Nasal Screen MRSA/MSSA - Final Nasal Swab Assessment and Plan Assessment: 1 Exertional chest discomfort in a patient found to have significant triple- vessel coronary artery disease, plan is for coronary revascularization 2 Hyperlipidemia 3 Benign prostatic hyperplasia 4 Gastroesophageal reflux disease 5 Lifelong nonsmoker Plan: The patient was seen and evaluated by Dr. Ortiz Plan is for coronary revascularization early next week Continued on a heparin drip for now Practicing well with the incentive spirometer We'll continue to follow and make further recommendations based on his clinical status I, the cosigning physician, performed a history & physical examination of the patient. Lungs sounds are clear. Maintaining good O2 saturations in the 90s on room air. I discussed the assessment and plan of care with my nurse practitioner, Karis Monreal. I attest to the above consultation as dictated by her.
[2020-03-20] MEDS: HEPARIN SOD,PORK IN 0.45% NACL 25,000 UNIT in 0.45% NACL 1 250ML.BAG IV SCH (12:24)
--- NOTE | 2020-03-20 12:48 | P.PN ---
Subjective Patient is seen and examined ambulating up around his room in no acute distress. He has no symptoms of chest discomfort or shortness of breath. Blood pressure is 125/66 heart rate 47 afebrile maintaining oxygen saturation on room air. Laboratory data reviewed and unremarkable. Currently maintained on nitroglycerin patch, Lopressor 25 mg twice a day, heparin infusion, atorvastatin 80 mg daily and aspirin 81 mg daily. GENERAL: Well-appearing, well-nourished and in no acute distress. NECK: Supple without JVD or thyromegaly. LUNGS: Breath sounds clear to auscultation bilaterally. Respiration equal and unlabored. No wheezes, rales or rhonchi. HEART: Regular rate and rhythm without murmurs, rubs or gallops. S1 and S2 heard. EXTREMITIES: Normal range of motion, no edema. No clubbing or cyanosis. Peripheral pulses intact. ASSESSMENT Severe triple-vessel coronary artery disease Dyslipidemia PLAN Continue current medical regimen. Bypass grafting scheduled for Sunday of next week with Dr. Hdez. Further recommendations to follow based upon clinical course. Nurse Practitioner note has been reviewed, I agree with a documented findings and plan of care. Patient was seen and examined. Objective - Vital Signs Vital signs: Vital Signs Temp 97.9 F 03/20/20 08:40 Pulse 47 L 03/20/20 11:00 Resp 16 03/20/20 11:00 BP 125/66 03/20/20 11:00 Pulse Ox 97 03/20/20 11:00 Intake & Output 03/19/20 03/20/20 03/20/20 18:59 06:59 18:59 Intake Total 1255.004 500 232.273 Output Total 300 Balance 955.004 500 232.273 Weight 95 kg 95.4 kg Intake: Intake, IV Titration 175.004 232.273 Amount Heparin Sod,Pork in 0.45% 175.004 232.273 NaCl 25,000 unit In 0.45 % NaCl 1 250ml.bag @ 10. 498 UNITS/KG/HR 10 mls/hr IV .Q24H [facility] Rx#: [id number] Oral 1080 500 Output: Urine 300 Other: Voiding Method Toilet Toilet Toilet # Voids 1 2 # Bowel Movements 1 - Labs CBC & Chem 7: 03/20/20 06:15 03/20/20 06:15 Labs: Abnormal Lab Results - Last 24 Hours (Table) 03/20/20 03/20/20 Range/Units 06:15 06:15 APTT 69.4 H (22.0-30.0) sec Glucose 102 H (74-99) mg/dL Microbiology - Last 24 Hours (Table) 03/18/20 13:17 Nasal Screen MRSA/MSSA - Final Nasal Swab
[2020-03-20] MEDS: SENNOSIDES-DOCUSATE SODIUM 1 EACH TAB PO SCH (21:13)
[2020-03-20] MEDS: TAMSULOSIN 0.4 MG CAP.ER.24H PO SCH (21:13)
[2020-03-20] MEDS: ALPRAZolam 0.25 MG TAB PO PRN (23:51)
[2020-03-21 06:12] LABS: Basophils # (A) 0.1 k/uL (0-0.2); Basophils % (A) 1 %; Eosinophils # (A) 0.2 k/uL (0-0.7); Eosinophils % (A) 3 %; HCT 44.1 % (39.0-53.0); HGB 14.2 gm/dL (13.0-17.5); Lymphocytes # (A) 2.3 k/uL (1.0-4.8); Lymphocytes % (A) 30 %; MCHC 32.2 g/dL (31.0-37.0); MCV 86.9 fL (80.0-100.0); Mean Platelet Volume 7.1; Monocytes # (A) 0.7 k/uL (0-1.0); Monocytes % (A) 9 %; Neutrophils # (A) 4.2 k/uL (1.3-7.7); Neutrophils % (A) 53 %; Platelet Count 240 k/uL (150-450); RBC 5.07 m/uL (4.30-5.90); RDW 13.3 % (11.5-15.5); WBC 7.8 k/uL (3.8-10.6)
[2020-03-21] MEDS: FAMOTIDINE 20 MG TAB PO SCH ×2 (06:17→17:39)
[2020-03-21 06:39] LABS: African American GFR (CKD) >90 (>60 ml/min/1.73 sqM); Anion Gap 6 mmol/L; Blood Urea Nitrogen 13 mg/dL (9-20); Calcium 9.3 mg/dL (8.4-10.2); Carbon Dioxide 28 mmol/L (22-30); Chloride 104 mmol/L (98-107); Glucose 103 mg/dL (74-99); Non-African American GFR(CKD) 85 (>60 ml/min/1.73 sqM); Potassium 4.2 mmol/L (3.5-5.1); Sodium 138 mmol/L (137-145)
[2020-03-21] MEDS: ASPIRIN 81 MG PO SCH (08:01)
[2020-03-21] MEDS: ATORVASTATIN 80 MG TAB PO SCH (08:01)
[2020-03-21] MEDS: METOPROLOL TARTRATE 25 MG TAB PO SCH ×2 (08:02→19:54)
[2020-03-21] MEDS: NITROGLYCERIN OINT 1 INCH/GM PACKET TOPICAL SCH ×3 (08:02→23:51)
--- NOTE | 2020-03-21 09:04 | P.PN ---
Subjective Progress Note Date: 03/21/20 Principal diagnosis: Coronary artery disease. Previous medical history of hyperlipidemia, BPH, lifelong nonsmoker, father with history of aortic aneurysm, both grandfathers diagnosed with heart disease in their early 50s The patient is currently ambulating in the hallway in no acute distress. Denies shortness of breath, did have 1 brief episode of mild chest pressure again y afternoon which abated on its own without treatment, currently chest pain-free. Has been ambulatory in the hallway multiple times without difficulty. Questions by the patient and his continued to be answered to the best of my ability Objective - Vital Signs Vital signs: Vital Signs Temp 98.2 F 03/21/20 07:50 Pulse 57 L 03/21/20 07:50 Resp 16 03/21/20 07:50 BP 122/67 03/21/20 07:50 Pulse Ox 98 03/21/20 07:50 Intake & Output 03/20/20 03/21/20 03/21/20 18:59 06:59 18:59 Intake Total 1392.273 30 Balance 1392.273 30 Weight 94.3 kg Intake: IV 80 30 Heparin Sod,Pork in 0.45% 80 30 NaCl 25,000 unit In 0.45 % NaCl 1 250ml.bag @ 10. 498 UNITS/KG/HR 10 mls/hr IV .Q24H [facility] Rx#: [id number] Intake, IV Titration 232.273 Amount Heparin Sod,Pork in 0.45% 232.273 NaCl 25,000 unit In 0.45 % NaCl 1 250ml.bag @ 10. 498 UNITS/KG/HR 10 mls/hr IV .Q24H [facility] Rx#: [id number] Oral 1080 Other: Voiding Method Toilet Toilet # Voids 2 3 - Constitutional General appearance: Present: cooperative, no acute distress - Respiratory Details: Lungs sounds clear bilaterally. Respirations even, nonlabored. Currently on room air with oxygen saturation 97%. Able to achieve 3250 mL on his incentive spirometry - Cardiovascular Details: S1, S2 present. Regular rate and rhythm, sinus rhythm on telemetry. Palpable peripheral pulses bilaterally. No edema present. No calf pain or tenderness noted. - Gastrointestinal Gastrointestinal Comment(s): Abdomen soft, nontender, nondistended. Active bowel sounds present 4 quadrants. Tolerating diet. Positive bowel movement 03/19/2020 - Genitourinary Genitourinary Comment(s): Continues to void - Integumentary Integumentary Comment(s): Skin is warm and dry with evidence of good perfusion - Neurologic Neurologic: Present: CNII-XII intact - Musculoskeletal Musculoskeletal: Present: gait normal, strength equal bilaterally - Psychiatric Psychiatric: Present: A&O x's 3, appropriate affect, intact judgment & insight - Allied health notes Allied health notes reviewed: nursing - Labs CBC & Chem 7: 03/21/20 05:56 03/21/20 05:56 Labs: Abnormal Lab Results - Last 24 Hours (Table) 03/20/20 03/21/20 03/21/20 Range/Units 14:55 05:56 05:56 APTT 48.9 H 52.7 H (22.0-30.0) sec Glucose 103 H (74-99) mg/dL Assessment and Plan Assessment: 1. Coronary artery disease 2. Hyperlipidemia 3. BPH 4. Lifelong nonsmoker 5. Father with history of aortic aneurysm 6. Both grandfathers with coronary artery diagnosis in their early 50s Plan: 1. Continue aspirin, statin, IV heparin, beta april therapy 2. Encourage incentive spirometry use 3. Increase activity, ambulate as tolerated 4. Continue preoperative teaching 5. Our plan is for myocardial revascularization with left internal mammary artery and endoscopic vein harvest Sunday with Dr. Hdez 6. CT of chest reviewed 7. Medical management of other comorbidities per primary care service 8. More recommendations to follow Time with Patient: Greater than 30
--- NOTE | 2020-03-21 11:05 | P.PN ---
Subjective Progress Note Date: 03/21/20 Principal diagnosis: Coronary artery disease This is a very pleasant 60-year-old gentleman who follows with Dr. Medrano as his primary care provider. He has a history of hyperlipidemia. He had been developing exertional chest discomfort and a stress echocardiogram revealed ante roseptal and anterior apical hypokinesis. He was brought in yesterday for an elective cardiac catheterization and was found to have a 99% stenosis of the LAD, 94% stenosis of the circumflex and 70% stenosis of the proximal RCA, should be elevated with an area of 70-80%. Ejection fraction 55-60%. He has been seen and evaluated by cardiothoracic surgery and the plan is for coronary revascularization early next week. Currently he is seen in consultation on the selective care unit. He is awake and alert in no acute distress. Resting quite comfortably in bed. Denies any chest discomfort currently. No shortness of breath, cough or congestion. He is a lifelong nonsmoker. He is maintaining O2 saturations in the mid 90s on room air. Pulmonary function testing pending. He's afebrile. Hemodynamically stable. White count 9.5. Hemoglobin 14.8. Sodium 137. Potassium 4.4. Creatinine 0.92. Ashley virus not detected. He remains on a heparin drip. The patient is seen today 03/20/2020 in follow-up on the selective care unit. He is currently sitting up in a chair at the bedside. Awake and alert in no acute distress. Maintaining good O2 saturation 90s on room air. No shortness o f breath, cough or congestion. No chest pain, palpitations lightheadedness or dizziness. He remains on heparin drip. Nitropaste in place. White count 8.9. Hemoglobin 15.2. Sodium 138. Potassium 4.3. Creatinine 0.92. The patient is seen today 03/21/2020 in follow-up on the selective care unit. He remains awake and alert in no acute distress. He remains on room air with good O2 saturations in the 90s. No chest discomfort currently. One brief episode of mild chest discomfort while ambulating yesterday. Computed tomography scan of the chest yesterday revealed no acute pulmonary process. White count 7.8. Hemoglobin 14.2. Sodium 138. Potassium 4.2. Creatinine 0.97. He remains on heparin drip. Objective - Vital Signs Vital signs: Vital Signs Temp 98.2 F 03/21/20 07:50 Pulse 57 L 03/21/20 07:50 Resp 16 03/21/20 07:50 BP 122/67 03/21/20 07:50 Pulse Ox 98 03/21/20 07:50 Intake & Output 03/20/20 03/21/20 03/21/20 18:59 06:59 18:59 Intake Total 1392.273 30 240 Balance 1392.273 30 240 Weight 94.3 kg Intake: IV 80 30 Heparin Sod,Pork in 0.45% 80 30 NaCl 25,000 unit In 0.45 % NaCl 1 250ml.bag @ 10. 498 UNITS/KG/HR 10 mls/hr IV .Q24H RERE Rx#: [id number] Intake, IV Titration 232.273 Amount Heparin Sod,Pork in 0.45% 232.273 NaCl 25,000 unit In 0.45 % NaCl 1 250ml.bag @ 10. 498 UNITS/KG/HR 10 mls/hr IV .Q24H RERE Rx#: [id number] Oral 1080 240 Other: Voiding Method Toilet Toilet Toilet # Voids 2 3 - Exam GENERAL EXAM: Alert, active, very pleasant 60-year-old gentleman, on room air, comfortable in no apparent distress. HEAD: Normocephalic. EYES: Normal reaction of pupils, equal size. NOSE: Clear with pink turbinates. THROAT: No erythema or exudates. NECK: No masses, no JVD. CHEST: No chest wall deformity. LUNGS: Equal air entry with no crackles, wheeze, rhonchi or dullness. CVS: S1 and S2 normal with no audible murmur, regular rhythm. ABDOMEN: No hepatosplenomegaly, normal bowel sounds, no guarding or rigidity. SPINE: No scoliosis or deformity SKIN: No rashes CENTRAL NERVOUS SYSTEM: No focal deficits, tone is normal in all 4 extremities. EXTREMITIES: There is no peripheral edema. No clubbing, no cyanosis. Peripheral pulses are intact. - Labs CBC & Chem 7: 03/21/20 05:56 03/21/20 05:56 Labs: Abnormal Lab Results - Last 24 Hours (Table) 03/20/20 03/21/20 03/21/20 Range/Units 14:55 05:56 05:56 APTT 48.9 H 52.7 H (22.0-30.0) sec Glucose 103 H (74-99) mg/dL Assessment and Plan Assessment: 1 Exertional chest discomfort in a patient found to have significant triple- vessel coronary artery disease, plan is for coronary revascularization 2 Hyperlipidemia 3 Benign prostatic hyperplasia 4 Gastroesophageal reflux disease 5 Lifelong nonsmoker Plan: The patient was seen and evaluated by Dr. Ortiz Plan is for coronary revascularization 03/23/2020 Continued on a heparin drip for now Practicing well with the incentive spirometer We'll continue to follow and make further recommendations based on his clinical status I, the cosigning physician, performed a history & physical examination of the patient. Lungs sounds are clear. Maintaining good O2 saturations in the 90s on room air. I discussed the assessment and plan of care with my nurse practitioner, Karis Monreal. I attest to the above consultation as dictated by her.
[2020-03-21] MEDS: HEPARIN SOD,PORK IN 0.45% NACL 25,000 UNIT in 0.45% NACL 1 250ML.BAG IV SCH (12:33)
--- NOTE | 2020-03-21 13:08 | P.PN ---
Subjective Patient is seen and examined ambulating up in the halls in no acute distress. He has no symptoms of chest discomfort or shortness of breath. Blood pressure is 127/66 heart rate 50 afebrile maintaining oxygen saturation on room air. Laboratory data reviewed and unremarkable. Currently maintained on nitroglycerin patch, Lopressor 25 mg twice a day, heparin infusion, atorvastatin 80 mg daily and aspirin 81 mg daily. GENERAL: Well-appearing, well-nourished and in no acute distress. NECK: Supple without JVD or thyromegaly. LUNGS: Breath sounds clear to auscultation bilaterally. Respiration equal and unlabored. No wheezes, rales or rhonchi. HEART: Regular rate and rhythm without murmurs, rubs or gallops. S1 and S2 heard. EXTREMITIES: Normal range of motion, no edema. No clubbing or cyanosis. Peripheral pulses intact. ASSESSMENT Severe triple-vessel coronary artery disease Dyslipidemia PLAN Continue current medical regimen. Bypass grafting scheduled for Sunday of next week with Dr. Hdez. Further recommendations to follow based upon clinical course. Nurse Practitioner note has been reviewed, I agree with a documented findings and plan of care. Patient was seen and examined. Objective - Vital Signs Vital signs: Vital Signs Temp 98.2 F 03/21/20 07:50 Pulse 50 L 03/21/20 11:35 Resp 16 03/21/20 11:35 BP 127/66 03/21/20 11:35 Pulse Ox 98 03/21/20 11:35 Intake & Output 03/20/20 03/21/20 03/21/20 18:59 06:59 18:59 Intake Total 1392.273 30 481.5 Balance 1392.273 30 481.5 Weight 94.3 kg Intake: IV 80 30 Heparin Sod,Pork in 0.45% 80 30 NaCl 25,000 unit In 0.45 % NaCl 1 250ml.bag @ 10. 498 UNITS/KG/HR 10 mls/hr IV .Q24H RERE Rx#: [id number] Intake, IV Titration 232.273 241.5 Amount Heparin Sod,Pork in 0.45% 232.273 241.5 NaCl 25,000 unit In 0.45 % NaCl 1 250ml.bag @ 10. 498 UNITS/KG/HR 10 mls/hr IV .Q24H RERE Rx#: [id number] Oral 1080 240 Other: Voiding Method Toilet Toilet Toilet # Voids 2 3 - Labs CBC & Chem 7: 03/21/20 05:56 03/21/20 05:56 Labs: Abnormal Lab Results - Last 24 Hours (Table) 03/20/20 03/21/20 03/21/20 Range/Units 14:55 05:56 05:56 APTT 48.9 H 52.7 H (22.0-30.0) sec Glucose 103 H (74-99) mg/dL
[2020-03-21] MEDS: SENNOSIDES-DOCUSATE SODIUM 1 EACH TAB PO SCH (19:54)
[2020-03-21] MEDS: TAMSULOSIN 0.4 MG CAP.ER.24H PO SCH (19:54)
[2020-03-21] MEDS: ALPRAZolam 0.25 MG TAB PO PRN (23:56)
[2020-03-22] MEDS: FAMOTIDINE 20 MG TAB PO SCH ×2 (06:16→16:42)
--- NOTE | 2020-03-22 08:08 | P.PN ---
Subjective Progress Note Date: 03/22/20 Principal diagnosis: Coronary artery disease. Previous medical history of hyperlipidemia, BPH, lifelong nonsmoker, father with history of aortic aneurysm, both grandfathers diagnosed with heart disease in their early 50s The patient is currently ambulating in his room in no acute distress. Denies shortness of breath, currently chest pain-free. Has been ambulatory in the [facility] multiple times without difficulty. Patient is anxious about surgery, all questions answered Objective - Vital Signs Vital signs: Vital Signs Temp 98 F 03/22/20 00:00 Pulse 60 03/22/20 04:00 Resp 16 03/22/20 04:00 BP 130/65 03/22/20 04:00 Pulse Ox 96 03/22/20 04:00 Intake & Output 03/21/20 03/22/20 03/22/20 18:59 06:59 18:59 Intake Total 801.5 Output Total 260 Balance 801.5 -260 Weight 94.7 kg Intake: IV 80 Heparin Sod,Pork in 0.45% 80 NaCl 25,000 unit In 0.45 % NaCl 1 250ml.bag @ 10. 498 UNITS/KG/HR 10 mls/hr IV .Q24H RERE Rx#: [id number] Intake, IV Titration 241.5 Amount Heparin Sod,Pork in 0.45% 241.5 NaCl 25,000 unit In 0.45 % NaCl 1 250ml.bag @ 10. 498 UNITS/KG/HR 10 mls/hr IV .Q24H RERE Rx#: [id number] Oral 480 Output: Urine 260 Other: Voiding Method Toilet Toilet # Voids 2 3 - Constitutional General appearance: Present: cooperative, no acute distress - Respiratory Details: Lungs sounds clear bilaterally. Respirations even, nonlabored. Currently on room air with oxygen saturation 96%. Able to achieve 3500 mL on his incentive spirometry - Cardiovascular Details: S1, S2 present. Slow but regular rate and rhythm, sinus rhythm to sinus bradycardia on telemetry. Palpable peripheral pulses bilaterally. No edema present. No calf pain or tenderness noted. - Gastrointestinal Gastrointestinal Comment(s): Abdomen soft, nontender, nondistended. Active bowel sounds present 4 quadrants. Tolerating diet. Positive bowel movement 03/19/2020 - Genitourinary Genitourinary Comment(s): Continues to void - Integumentary Integumentary Comment(s): Skin is warm and dry with evidence of good perfusion - Neurologic Neurologic: Present: CNII-XII intact - Musculoskeletal Musculoskeletal: Present: gait normal, strength equal bilaterally - Psychiatric Psychiatric: Present: A&O x's 3, appropriate affect, intact judgment & insight - Allied health notes Allied health notes reviewed: nursing - Labs CBC & Chem 7: 03/21/20 05:56 03/21/20 05:56 Assessment and Plan Assessment: 1. Coronary artery disease 2. Hyperlipidemia 3. BPH 4. Lifelong nonsmoker 5. Father with history of aortic aneurysm 6. Both grandfathers with coronary artery diagnosis in their early 50s Plan: 1. Continue aspirin, statin, IV heparin, beta april therapy 2. Encourage continued incentive spirometry use 3. Increase activity, ambulate as tolerated 4. Continue preoperative teaching 5. Our plan is for myocardial revascularization with left internal mammary artery and endoscopic vein harvest tomorrow with Dr. Hdez 6. CT of chest reviewed 7. Medical management of other comorbidities per primary care service 8. More recommendations to follow Time with Patient: Greater than 30
[2020-03-22 08:30] LABS: Basophils # (A) 0.1 k/uL (0-0.2); Basophils % (A) 1 %; Eosinophils # (A) 0.3 k/uL (0-0.7); Eosinophils % (A) 3 %; HGB 15.1 gm/dL (13.0-17.5); Lymphocytes # (A) 1.8 k/uL (1.0-4.8); Lymphocytes % (A) 24 %; MCH 28.3 pg (25.0-35.0); MCHC 32.2 g/dL (31.0-37.0); MCV 87.9 fL (80.0-100.0); Mean Platelet Volume 7.1; Monocytes # (A) 0.5 k/uL (0-1.0); Monocytes % (A) 7 %; Neutrophils # (A) 4.6 k/uL (1.3-7.7); Neutrophils % (A) 62 %; Platelet Count 248 k/uL (150-450); RBC 5.35 m/uL (4.30-5.90); RDW 13.3 % (11.5-15.5); WBC 7.4 k/uL (3.8-10.6)
[2020-03-22 08:46] LABS: Partial Thromboplastin Time 47.6 sec (22.0-30.0); Prothrombin Time 10.3 sec (9.0-12.0)
[2020-03-22 08:51] LABS: ALT 47 U/L (4-49); AST 46 U/L (17-59); African American GFR (CKD) >90 (>60 ml/min/1.73 sqM); Albumin 4.2 g/dL (3.5-5.0); Alkaline Phosphatase 54 U/L (38-126); Anion Gap 6 mmol/L; Blood Urea Nitrogen 13 mg/dL (9-20); Calcium 9.6 mg/dL (8.4-10.2); Carbon Dioxide 30 mmol/L (22-30); Chloride 102 mmol/L (98-107); Glucose 151 mg/dL (74-99); Non-African American GFR(CKD) 80 (>60 ml/min/1.73 sqM); Potassium 4.4 mmol/L (3.5-5.1); Sodium 138 mmol/L (137-145); Total Bilirubin 0.7 mg/dL (0.2-1.3); Total Protein 7.1 g/dL (6.3-8.2)
[2020-03-22] MEDS: METOPROLOL TARTRATE 25 MG TAB PO SCH ×2 (09:55→20:42)
[2020-03-22] MEDS: ASPIRIN 81 MG PO SCH (09:55)
[2020-03-22] MEDS: ATORVASTATIN 80 MG TAB PO SCH (09:55)
[2020-03-22] MEDS: NITROGLYCERIN OINT 1 INCH/GM PACKET TOPICAL SCH ×3 (09:55→23:01)
--- NOTE | 2020-03-22 13:24 | P.PN ---
Subjective Progress Note Date: 03/22/20 Principal diagnosis: Coronary artery disease, chest pain This is a very pleasant 60-year-old gentleman who follows with Dr. Medrano as his primary care provider. He has a history of hyperlipidemia. He had been developing exertional chest discomfort and a stress echocardiogram revealed anteroseptal and anterior apical hypokinesis. He was brought in yesterday for an elective cardiac catheterization and was found to have a 99% stenosis of the LAD, 94% stenosis of the circumflex and 70% stenosis of the proximal RCA, should be elevated with an area of 70-80%. Ejection fraction 55-60%. He has been seen and evaluated by cardiothoracic surgery and the plan is for coronary rev ascularization early next week. Currently he is seen in consultation on the selective care unit. He is awake and alert in no acute distress. Resting quite comfortably in bed. Denies any chest discomfort currently. No shortness of breath, cough or congestion. He is a lifelong nonsmoker. He is maintaining O2 saturations in the mid 90s on room air. Pulmonary function testing pending. He's afebrile. Hemodynamically stable. White count 9.5. Hemoglobin 14.8. Sodium 137. Potassium 4.4. Creatinine 0.92. Ashley virus not detected. He remains on a heparin drip. The patient is seen today 03/20/2020 in follow-up on the selective care unit. He is currently sitting up in a chair at the bedside. Awake and alert in no acute distress. Maintaining good O2 saturation 90s on room air. No shortness of breath, cough or congestion. No chest pain, palpitations lightheadedness or dizziness. He remains on heparin drip. Nitropaste in place. White count 8.9. Hemoglobin 15.2. Sodium 138. Potassium 4.3. Creatinine 0.92. The patient is seen today 03/21/2020 in follow-up on the selective care unit. He remains awake and alert in no acute distress. He remains on room air with good O2 saturations in the 90s. No chest discomfort currently. One brief episode of mild chest discomfort while ambulating yesterday. Computed tomography scan of the chest yesterday revealed no acute pulmonary process. White count 7.8. Hemoglobin 14.2. Sodium 138. Potassium 4.2. Creatinine 0.97. He remains on heparin drip. On 03/22/2020 patient seen in follow-up on selective care unit, he is awake and alert, in no acute distress, resting comfortably in bed, breathing is comfortable, room air pulse ox of 98%, he states that times he'll have mild chest discomfort, otherwise no chest pain, afebrile, remains on heparin infusion, and 0.9 normal saline at a rate of 20 ML per hour, denies any di fficulty breathing, chest CT was obtained on 03/19/2020 showing no acute pulmonary process. Today's labs have been reviewed, showing CBC within normal limits, electrolytes and renal profile within normal limits Objective - Vital Signs Vital signs: Vital Signs Temp 98.0 F 03/22/20 08:00 Pulse 51 L 03/22/20 12:00 Resp 19 03/22/20 12:00 BP 118/65 03/22/20 12:00 Pulse Ox 98 03/22/20 12:00 Intake & Output 03/21/20 03/22/20 03/22/20 18:59 06:59 18:59 Intake Total 801.5 480 Output Total 260 Balance 801.5 -260 480 Weight 94.7 kg Intake: IV 80 Heparin Sod,Pork in 0.45% 80 NaCl 25,000 unit In 0.45 % NaCl 1 250ml.bag @ 10. 498 UNITS/KG/HR 10 mls/hr IV .Q24H RERE Rx#: [id number] Intake, IV Titration 241.5 Amount Heparin Sod,Pork in 0.45% 241.5 NaCl 25,000 unit In 0.45 % NaCl 1 250ml.bag @ 10. 498 UNITS/KG/HR 10 mls/hr IV .Q24H RERE Rx#: [id number] Oral 480 480 Output: Urine 260 Other: Voiding Method Toilet Toilet # Voids 2 3 2 - Exam GENERAL EXAM: Alert, very pleasant, 60-year-old white male, on room air, with pulse ox 98% comfortable in no apparent distress. HEAD: Normocephalic/atraumatic. EYES: Normal reaction of pupils, equal size. Conjunctiva pink, sclera white. NOSE: Clear with pink turbinates. THROAT: No erythema or exudates. NECK: No masses, no JVD, no thyroid enlargement, no adenopathy. CHEST: No chest wall deformity. Symmetrical expansion. LUNGS: Equal air entry with no crackles, wheeze, rhonchi or dullness. CVS: Regular rate and rhythm, normal S1 and S2, no gallops, no murmurs, no rubs ABDOMEN: Soft, nontender. No hepatosplenomegaly, normal bowel sounds, no guarding or rigidity. EXTREMITIES: No clubbing, no edema, no cyanosis, 2+ pulses and upper and lower extremities. MUSCULOSKELETAL: Muscle strength and tone normal. SPINE: No scoliosis or deformity SKIN: No rashes CENTRAL NERVOUS SYSTEM: Alert and oriented -3. No focal deficits, tone is normal in all 4 extremities. PSYCHIATRIC: Alert and oriented -3. Appropriate affect. Intact judgment and insight. - Labs CBC & Chem 7: 03/22/20 08:11 03/22/20 08:11 Labs: Abnormal Lab Results - Last 24 Hours (Table) 03/22/20 03/22/20 Range/Units 08:11 08:11 APTT 47.6 H (22.0-30.0) sec Glucose 151 H (74-99) mg/dL Assessment and Plan Plan: Assessment: 1 Exertional chest discomfort in a patient found to have significant triple- vessel coronary artery disease, plan is for coronary revascularization 2 Hyperlipidemia 3 Benign prostatic hyperplasia 4 Gastroesophageal reflux disease 5 Lifelong nonsmoker Plan: No acute events overnight, vital signs are stable, no difficulty breathing, continues stable oxygenation on room air, encourage deep breathing and coughing, patient is scheduled for surgery tomorrow. We'll continue to follow the patient in the postoperative period in the intensive care unit I performed a history & physical examination of the patient and discussed their management with my nurse practitioner, Sarita George. I reviewed the nurse practitioner's note and agree with the documented findings and plan of care. Lung sounds are positive for clear breath sounds. The findings and the impression was discussed with the patient. I attest to the documentation by the nurse practitioner. Time with Patient: Less than 30
--- NOTE | 2020-03-22 14:05 | PN ---
PROGRESS NOTE Mr. Lang has significant triple-vessel disease and is going for aortocoronary bypass surgery to be performed by Dr. Hdez tomorrow. He is doing well. He is resting comfortably. He has no chest pain or shortness of breath. At the time of my evaluation, he is currently on nitrates, heparin, atorvastatin and beta april and aspirin 81 mg daily. Vital are stable, no JVD, S1, S2 heard normally. Lungs are clear. Abdomen and lower extremity exam unchanged. Plan is to continue current medications and proceed with bypass surgery tomorrow. MMODL / IJN: [id number] /
[2020-03-22] MEDS: HEPARIN SOD,PORK IN 0.45% NACL 25,000 UNIT in 0.45% NACL 1 250ML.BAG IV SCH (15:08)
[2020-03-22] MEDS: TAMSULOSIN 0.4 MG CAP.ER.24H PO SCH (20:42)
[2020-03-23] MEDS ORDERED: METOPROLOL TARTRATE 12.5 MG TAB PO ONE (05:00)
[2020-03-23] MEDS ORDERED: LACTATED RINGERS 1,000 ML IV SCH ×2 (05:00→06:30)
[2020-03-23] MEDS ORDERED: CALCIUM CHLORIDE 100 MG/ML 10 ML SYRINGE IVP ONE (05:00)
[2020-03-23] MEDS ORDERED: ATORVASTATIN 10 MG TAB PO ONE (05:00)
[2020-03-23] MEDS ORDERED: ALBUMIN HUMAN 5% 500 ML in EMPTY BAG 1 BAG IVPB ONE ×6 (05:00)
[2020-03-23] MEDS ORDERED: ASPIRIN 325 MG TAB PO ONE (05:00)
[2020-03-23] MEDS ORDERED: TRANEXAMIC ACID 2,000 MG in SODIUM CHLORIDE 0.9% 80 ML IV ONE (06:00)
[2020-03-23] MEDS ORDERED: DEXTROSE 5% IN WATER 1,000 ML with POTASSIUM CHLORIDE 25 MEQ, SODIUM CHLORIDE 2.5MEQ/ML... IV SCH ×6 (06:00)
[2020-03-23] MEDS ORDERED: ceFAZolin 2 GM in SODIUM CHLORIDE 0.9% 30 ML IVPB ONE (06:00)
[2020-03-23] MEDS ORDERED: SODIUM BICARB 8.4% 50 ML SYR (1 MEQ/ML) IV ONE (06:00)
[2020-03-23] MEDS ORDERED: NITROGLYCERIN-D5W PMX 25 MG/250 ML BTL IV ONE (06:00)
[2020-03-23] MEDS ORDERED: MAGNESIUM SULFATE SYG 4.06 MEQ/ML SYRINGE IV ONE (06:00)
[2020-03-23] MEDS ORDERED: CHLORHEXIDINE GLUCONATE 15 ML CUP MUCOUS MEM ONE (06:00)
[2020-03-23] MEDS ORDERED: PHENYLEPHRINE 40 MG in SODIUM CHLORIDE 0.9% 250 ML IV ONE (06:00)
[2020-03-23] MEDS ORDERED: PHENYLEPHRINE 10 MG/ML VIAL IV ONE (06:00)
[2020-03-23] MEDS ORDERED: DILTIAZEM 125 MG in SODIUM CHLORIDE 0.9% 100 ML IV SCH ×2 (06:00→15:11)
[2020-03-23] MEDS ORDERED: PAPAVERINE 360 MG in SODIUM CHLORIDE 0.9% 90 ML IV ONE (06:00)
[2020-03-23] MEDS ORDERED: ceFAZolin 2,000 MG in SODIUM CHLORIDE 0.9% 30 ML IVPB ONE (06:00)
[2020-03-23] MEDS ORDERED: PROTAMINE SULFATE 250 MG in EMPTY BAG 1 BAG IV ONE (06:00)
[2020-03-23] MEDS ORDERED: DEXTROSE 5% IN WATER 1,000 ML with POTASSIUM CHLORIDE 110 MEQ, MAGNESIUM SULFATE 16 MEQ... IV SCH ×5 (06:00)
[2020-03-23] MEDS ORDERED: HEPARIN SODIUM,PORCINE 5,000 UNIT in SODIUM CHLORIDE 0.9% 500 ML 500 ML IV ONE (06:00)
[2020-03-23] MEDS ORDERED: MANNITOL 25% 12.5 GM/50 ML VIAL IV ONE ×2 (06:00)
[2020-03-23] MEDS ORDERED: HEPARIN SODIUM 1,000 UN/ML (10ML VL) IV ONE (06:00)
[2020-03-23] MEDS ORDERED: NOREPINEPHRINE 4 MG in SODIUM CHLORIDE 0.9% 250 ML IV SCH (06:00)
[2020-03-23] MEDS ORDERED: ALBUMIN HUMAN 25% 50 ML in EMPTY BAG 1 BAG IVPB ONE (06:00)
[2020-03-23] MEDS ORDERED: CLEVIDIPINE BUTYRATE 25 MG in EMPTY BAG 1 BAG IV SCH (06:00)
[2020-03-23] MEDS ORDERED: NITROGLYCERIN-D5W PMX 50 MG in DEXTROSE/WATER 1 250ML.BAG IV SCH ×2 (06:00→15:11)
[2020-03-23] MEDS ORDERED: INSULIN REGULAR 100 UNIT in SODIUM CHLORIDE 0.9% 100 ML IV SCH ×2 (06:00→15:11)
[2020-03-23] MEDS ORDERED: PROTAMINE SULFATE 10 MG/ML 25 ML VIAL IV ONE ×2 (06:00→07:41)
[2020-03-23] MEDS ORDERED: ceFAZolin 1,000 MG in SODIUM CHLORIDE 0.9% IRRIGATIO 1,000 ML IRRIGATION ONE (06:00)
[2020-03-23] MEDS ORDERED: IV FLUID CONTINUATION 1,000 ML IV ONE (06:20)
[2020-03-23] MEDS ORDERED: MAGNESIUM SULFATE 4 MEQ/ML 10ML VIAL ONE (07:41)
[2020-03-23] MEDS ORDERED: fentaNYL (PF) 50 MCG/ML 50 ML VIAL ONE (07:41)
[2020-03-23] MEDS ORDERED: HEPARIN SODIUM,PORCINE 10,000 UNIT/ML 1 ML VIAL ONE (07:41)
[2020-03-23] MEDS ORDERED: MIDAZOLAM 2 MG/2 ML VIAL ONE (07:41)
[2020-03-23] MEDS ORDERED: CALCIUM CHLORIDE 1 GM/10 ML VIAL ONE (07:41)
[2020-03-23] MEDS ORDERED: SODIUM CHLORIDE 0.9% IRRIG 1,000 ML BTL IRRIGATION ONE (07:41)
[2020-03-23] MEDS ORDERED: LIDOCAINE 1% INJ 10MG/ML (20 ML MDV) ONE (07:41)
[2020-03-23] MEDS ORDERED: NITROGLYCERIN-D5W PMX 50 MG/250 ML BOTTLE IV ONE (07:41)
[2020-03-23] MEDS ORDERED: TRANEXAMIC ACID 1,000 MG/10 ML VIAL ONE (07:41)
[2020-03-23] MEDS ORDERED: SODIUM CHLORIDE 0.9% 250 ML BAG ONE (07:41)
[2020-03-23] MEDS ORDERED: VECURONIUM 10 MG VIAL IV ONE (07:41)
[2020-03-23] MEDS ORDERED: GLYCOPYRROLATE 0.2 MG/ML 2 ML VIAL ONE (07:41)
[2020-03-23] MEDS ORDERED: ELECTROLYTE-R (PH 7.4) 1,000 ML IV.SOLN IV ONE (07:41)
[2020-03-23 08:36] LABS: ABG Base Excess 1.6 mmol/L; ABG Glucose Whole Blood 101 mg/dL (75-99); ABG HCO3 27 mmol/L (21-25); ABG Hematocrit 44 % (34.0-46.0); ABG Ionized Calcium 4.9 mg/dL (4.5-5.3); ABG Lactic Acid Whole Blood 0.7 mmol/L (0.5-1.6); ABG Oxygen Saturation 98.3 % (94-97); ABG PCO2 42 mmHg (35-45); ABG PH 7.41 (7.35-7.45); ABG PO2 110 mmHg (83-108); ABG Potassium Whole Blood 4.1 mmol/L (3.4-4.5); ABG Sodium Whole Blood 139 mmol/L (135-146); ABG TCO2 28 mmol/L (19-24)
[2020-03-23 10:25] LABS: ABG Base Excess 0.6 mmol/L; ABG Glucose Whole Blood 115 mg/dL (75-99); ABG HCO3 27 mmol/L (21-25); ABG Hematocrit 42 % (34.0-46.0); ABG Ionized Calcium 4.9 mg/dL (4.5-5.3); ABG Lactic Acid Whole Blood 0.6 mmol/L (0.5-1.6); ABG Oxygen Saturation 99.1 % (94-97); ABG PCO2 47 mmHg (35-45); ABG PH 7.36 (7.35-7.45); ABG PO2 157 mmHg (83-108); ABG Potassium Whole Blood 4.3 mmol/L (3.4-4.5); ABG Sodium Whole Blood 139 mmol/L (135-146); ABG TCO2 28 mmol/L (19-24)
[2020-03-23 11:31] LABS: ABG Base Excess -0.5 mmol/L; ABG Glucose Whole Blood 226 mg/dL (75-99); ABG HCO3 25 mmol/L (21-25); ABG Hematocrit 32 % (34.0-46.0); ABG Ionized Calcium 4.3 mg/dL (4.5-5.3); ABG Lactic Acid Whole Blood 0.8 mmol/L (0.5-1.6); ABG Oxygen Saturation 99.8 % (94-97); ABG PCO2 41 mmHg (35-45); ABG PH 7.38 (7.35-7.45); ABG PO2 216 mmHg (83-108); ABG Sodium Whole Blood 131 mmol/L (135-146); ABG TCO2 26 mmol/L (19-24)
[2020-03-23 12:06] LABS: ABG Base Excess -0.8 mmol/L; ABG Glucose Whole Blood 196 mg/dL (75-99); ABG HCO3 25 mmol/L (21-25); ABG Hematocrit 33 % (34.0-46.0); ABG Ionized Calcium 4.5 mg/dL (4.5-5.3); ABG Lactic Acid Whole Blood 1.3 mmol/L (0.5-1.6); ABG Oxygen Saturation 99.8 % (94-97); ABG PCO2 42 mmHg (35-45); ABG PH 7.37 (7.35-7.45); ABG PO2 266 mmHg (83-108); ABG Potassium Whole Blood 4.8 mmol/L (3.4-4.5); ABG Sodium Whole Blood 135 mmol/L (135-146); ABG TCO2 26 mmol/L (19-24)
[2020-03-23 12:43] LABS: ABG Base Excess -1.1 mmol/L; ABG Glucose Whole Blood 218 mg/dL (75-99); ABG HCO3 25 mmol/L (21-25); ABG Hematocrit 31 % (34.0-46.0); ABG Ionized Calcium 4.5 mg/dL (4.5-5.3); ABG Lactic Acid Whole Blood 1.9 mmol/L (0.5-1.6); ABG Oxygen Saturation 99.7 % (94-97); ABG PCO2 44 mmHg (35-45); ABG PH 7.35 (7.35-7.45); ABG PO2 271 mmHg (83-108); ABG Potassium Whole Blood 4.5 mmol/L (3.4-4.5); ABG Sodium Whole Blood 135 mmol/L (135-146); ABG TCO2 26 mmol/L (19-24)
[2020-03-23 14:06] LABS: ABG Base Excess -0.6 mmol/L; ABG Glucose Whole Blood 134 mg/dL (75-99); ABG HCO3 25 mmol/L (21-25); ABG Hematocrit 38 % (34.0-46.0); ABG Ionized Calcium 4.7 mg/dL (4.5-5.3); ABG Lactic Acid Whole Blood 1.7 mmol/L (0.5-1.6); ABG Oxygen Saturation 99.5 % (94-97); ABG PCO2 45 mmHg (35-45); ABG PH 7.36 (7.35-7.45); ABG PO2 197 mmHg (83-108); ABG Potassium Whole Blood 3.9 mmol/L (3.4-4.5); ABG Sodium Whole Blood 138 mmol/L (135-146); ABG TCO2 27 mmol/L (19-24)
[2020-03-23 14:26] LABS: ABG Potassium Whole Blood 6.2 mmol/L (3.4-4.5)
[2020-03-23 15:00] LABS: Glucose,Whole Blood 100 mg/dL (75-99)
[2020-03-23] MEDS ORDERED: Magnesium Replacement Protocol 1 EACH MISC MISCELLANE PRN (15:11)
[2020-03-23] MEDS ORDERED: hydrALAZINE HCL 20 MG/ML 1 ML VIAL IVP PRN (15:11)
[2020-03-23] MEDS ORDERED: AMIODARONE 300 MG in DEXTROSE 5% IN WATER 250 ML IV PRN ×2 (15:11)
[2020-03-23] MEDS ORDERED: AMIODARONE 360 MG in DEXTROSE 5% IN WATER 200 ML IV PRN ×2 (15:11)
[2020-03-23] MEDS ORDERED: DEXTROSE 5% IN WATER 100 ML with AMIODARONE 150 MG IV PRN (15:11)
[2020-03-23] MEDS ORDERED: Potassium Replacement Protocol 1 EACH MISC MISCELLANE PRN (15:11)
[2020-03-23] MEDS ORDERED: DEXMEDETOMIDINE/0.9% NACL(PMX) 400 MCG in EMPTY BAG 1 BAG IV SCH (15:11)
[2020-03-23] MEDS ORDERED: BENZOCAINE/MENTHOL LOZENG 1 EACH LOZENGE MUCOUS MEM PRN (15:11)
[2020-03-23] MEDS ORDERED: CALCIUM GLUCONATE 2 GM in SODIUM CHLORIDE 0.9% 100 ML IVPB PRN (15:11)
[2020-03-23] MEDS ORDERED: IPRATROPIUM-ALBUTEROL 3 ML NEB INHALATION PRN (15:11)
[2020-03-23] MEDS ORDERED: Phosphorus Replacement Protoco 1 EACH MISC MISCELLANE PRN (15:11)
--- NOTE | 2020-03-23 15:25 | P.PN ---
Subjective Progress Note Date: 03/23/20 Principal diagnosis: Coronary artery disease, chest pain This is a very pleasant 60-year-old gentleman who follows with Dr. Medrano as his primary care provider. He has a history of hyperlipidemia. He had been developing exertional chest discomfort and a stress echocardiogram revealed anteroseptal and anterior apical hypokinesis. He was brought in yesterday for an elective cardiac catheterization and was found to have a 99% stenosis of the LAD, 94% stenosis of the circumflex and 70% stenosis of the proximal RCA, should be elevated with an area of 70-80%. Ejection fraction 55-60%. He has been seen and evaluated by cardiothoracic surgery and the plan is for coronary rev ascularization early next week. Currently he is seen in consultation on the selective care unit. He is awake and alert in no acute distress. Resting quite comfortably in bed. Denies any chest discomfort currently. No shortness of breath, cough or congestion. He is a lifelong nonsmoker. He is maintaining O2 saturations in the mid 90s on room air. Pulmonary function testing pending. He's afebrile. Hemodynamically stable. White count 9.5. Hemoglobin 14.8. Sodium 137. Potassium 4.4. Creatinine 0.92. Ashley virus not detected. He remains on a heparin drip. The patient is seen today 03/20/2020 in follow-up on the selective care unit. He is currently sitting up in a chair at the bedside. Awake and alert in no acute distress. Maintaining good O2 saturation 90s on room air. No shortness of breath, cough or congestion. No chest pain, palpitations lightheadedness or dizziness. He remains on heparin drip. Nitropaste in place. White count 8.9. Hemoglobin 15.2. Sodium 138. Potassium 4.3. Creatinine 0.92. The patient is seen today 03/21/2020 in follow-up on the selective care unit. He remains awake and alert in no acute distress. He remains on room air with good O2 saturations in the 90s. No chest discomfort currently. One brief episode of mild chest discomfort while ambulating yesterday. Computed tomography scan of the chest yesterday revealed no acute pulmonary process. White count 7.8. Hemoglobin 14.2. Sodium 138. Potassium 4.2. Creatinine 0.97. He remains on heparin drip. On 03/22/2020 patient seen in follow-up on selective care unit, he is awake and alert, in no acute distress, resting comfortably in bed, breathing is comfortable, room air pulse ox of 98%, he states that times he'll have mild chest discomfort, otherwise no chest pain, afebrile, remains on heparin infusion, and 0.9 normal saline at a rate of 20 ML per hour, denies any di fficulty breathing, chest CT was obtained on 03/19/2020 showing no acute pulmonary process. Today's labs have been reviewed, showing CBC within normal limits, electrolytes and renal profile within normal limits On 03/23/2020 patient is seen in intensive care unit, in the postoperative period, status post four-vessel coronary artery bypass grafting. He is sedated, intubated, on mechanical ventilator, on SIMV mode of ventilation, with a rate of 12, tidal blood 600, FiO2 is 100% and PEEP of 5, the rate was increased to 14 breaths per minute upon arrival to the ICU, postoperative blood gases pending, chest x-rays pending. Patient had left radial artery graft. Hemodynamically she is stable, did received Cell Saver and the OR. Mediastinal chest tube with 15 mL of serosanguineous output, left and right pleural chest tubes are Y- connected together, with only 5 mL of sanguinous output. Left radial MELANIE drain with minimal amount of single vessel output, compressed and draining. No vasopressors, point tenderness and a rate of 50 ML per hour, Cardizem infusion at 5 mg per hour, Diprivan infusion per protocol. Patient is being paced via epicardial AV wires, in AAI mode with a rate of 60 BPM, underlying rhythm is sinus bradycardia with a rate of 40 BPM. PA pressures 29/15, cardiac output is 5.1 and cardiac index is 2.3. Objective - Vital Signs Vital signs: Vital Signs Temp 97.4 F L 03/23/20 06:22 Pulse 51 L 03/23/20 06:22 Resp 18 03/23/20 06:22 BP 131/73 03/23/20 06:22 Pulse Ox 98 03/23/20 06:22 Intake & Output 03/22/20 03/23/20 03/23/20 18:59 06:59 18:59 Intake Total 970 200 33 Output Total 1850 Balance 970 200 -1817 Weight 94.7 kg Intake: IV 200 33 Intake, IV Titration 250 Amount Heparin Sod,Pork in 0.45% 250 NaCl 25,000 unit In 0.45 % NaCl 1 250ml.bag @ 10. 498 UNITS/KG/HR 10 mls/hr IV .Q24H [facility] Rx#: [id number] Oral 720 Output: Urine 650 Estimated Blood Loss 1200 Other: Voiding Method Toilet # Voids 2 2 - Exam GENERAL EXAM: Sedated, intubated, 60-year-old white male, on SIMV mode of ventilation with a rate of 14, tidal 600, FiO2 100%, and PEEP of 5, postop blood gases pending HEAD: Normocephalic/atraumatic. EYES: Normal reaction of pupils, equal size. Conjunctiva pink, sclera white. NOSE: Clear with pink turbinates. THROAT: No erythema or exudates. NECK: No masses, no JVD, no thyroid enlargement, no adenopathy. CHEST: No chest wall deformity. Symmetrical expansion. Mid sternal incision is clean dry and intact, 1 mediastinal chest tube with 5 mL of sanguinous output in the pleura Vac, right and left pleural chest tubes why connected together, with only 15 mL of sanguinous output in the pleura Vac, no evidence of air leak. Epicardial AV wires, connected to an external pacemaker box, and patient is b eing paced rate of 60, and mode of AAI, intrinsic rhythm is sinus bradycardia with a rate of 40 BPM. LUNGS: Equal air entry with no crackles, wheeze, rhonchi or dullness. CVS: Regular rate and rhythm, normal S1 and S2, no gallops, no murmurs, no rubs ABDOMEN: Soft, nontender. No hepatosplenomegaly, normal bowel sounds, no guarding or rigidity. EXTREMITIES: No clubbing, no edema, no cyanosis, 2+ pulses and upper and lower extremities. Left radial artery graft site is covered with surgical dressing, Casa wrapped, MELANIE drain is in place, with minimal amount of sanguinous output, MELANIE drain is compressed and draining MUSCULOSKELETAL: Muscle strength and tone normal. SPINE: No scoliosis or deformity SKIN: No rashes CENTRAL NERVOUS SYSTEM: Sedated, intubated No focal deficits, tone is normal in all 4 extremities. - Labs CBC & Chem 7: 03/22/20 08:11 03/22/20 08:11 Labs: Abnormal Lab Results - Last 24 Hours (Table) 03/22/20 03/23/20 Range/Units 08:11 14:57 POC Glucose (mg/dL) 100 H (75-99) mg/dL Crossmatch See Detail Assessment and Plan Plan: Assessment: #1. Coronary artery disease, with symptoms of significant exertional dyspnea, status post four-vessel coronary artery bypass grafting, with CASTAÑEDA to the LAD, left radial artery to the OM, SVG to the diagonal, SVG to the PDA, with left lower extremity endoscopic vein harvest, left radial artery harvest, ligation of the left atrial appendage with 35 mm atrial clip and intraoperative DANIELLA, postoperative day number 0 #2. Routine postoperative ventilator management #3. History of hyperlipidemia #4. History of benign prostatic hyperplasia #5. GERD/reflux #6. Lifetime nonsmoker #7. Family history of early onset heart disease Plan: Postoperative blood gas and chest x-ray pending, hemodynamically patient is stable, no vasopressors, chest tubes are dry, continue weaning FiO2 per protoc ol, we'll review postoperative chest x-ray. Nebulized bronchodilators every 6 hours around the clock while on the ventilator, and 4 times a day when necessary after extubation, proceed with spontaneous awakening trials and spontaneous breathing trials if the patient remains stable, incentive spirometry to the bedside. Daily chest x-ray and lab work. We'll continue to monitor for any hemodynamic instability, arrhythmias, or bleeding. GI and DVT prophylaxis per CT surgery. Doing well in the immediate postoperative period. We'll continue to closely follow along with cardiothoracic surgery. I performed a history & physical examination of the patient and discussed their management with my nurse practitioner, Sarita George. I reviewed the nurse practitioner's note and agree with the documented findings and plan of care. Lung sounds are positive for clear breath sounds. The findings and the impression was discussed with the patient. I attest to the documentation by the nurse practitioner. Time with Patient: Greater than 30
--- NOTE | 2020-03-23 15:28 | XR ---
EXAMINATION TYPE: XR chest 1V portable DATE OF EXAM: 03/23/2020 CLINICAL HISTORY: Post open cardiac surgery.. TECHNIQUE: Single AP portable supine view of the chest is obtained. COMPARISON: Chest x-ray from March 18, 2020. CT chest March 19, 2020. FINDINGS: There is new endotracheal tube terminating at inferior clavicular margin approximately 5 c m above the rajan. There is new orogastric tube projecting below diaphragm. There is new right inter nal jugular [place]-Dana catheter terminating at level of pulmonary outflow tract. Overlying sternal wir es along with mediastinal clips and left atrial appendage clip are all now present. New bilateral kobe st tubes along with mediastinal drainage catheter. New lateral left mid lung linear atelectasis and right infrahilar lateral linear atelectasis. No pneu mothorax identified. New tiny left pleural fluid collection. New left-sided subcutaneous emphysema. C ardiac silhouette size slightly more prominent but remains within normal limits. Osseous structures a re intact. IMPRESSION: 1. New tubes and lines as detailed above fairly satisfactory in position. Consider advancing orogastr ic tube slightly so side port is below diaphragm. 2. New patchy bilateral linear atelectasis. No pneumothorax with new chest tubes in place.
[2020-03-23 15:34] LABS: Basophils % (A) 0 %; Eosinophils # (A) 0.1 k/uL (0-0.7); Eosinophils % (A) 1 %; HCT 38.6 % (39.0-53.0); Lymphocytes # (A) 1.2 k/uL (1.0-4.8); Lymphocytes % (A) 10 %; MCH 29.1 pg (25.0-35.0); MCHC 33.6 g/dL (31.0-37.0); MCV 86.6 fL (80.0-100.0); Mean Platelet Volume 7.4; Monocytes # (A) 0.8 k/uL (0-1.0); Monocytes % (A) 7 %; Neutrophils # (A) 9.9 k/uL (1.3-7.7); Neutrophils % (A) 81 %; Platelet Count 141 k/uL (150-450); RBC 4.46 m/uL (4.30-5.90); RDW 13.2 % (11.5-15.5); WBC 12.2 k/uL (3.8-10.6)
[2020-03-23 15:37] LABS: ALT 86 U/L (4-49); AST 127 U/L (17-59); African American GFR (CKD) >90 (>60 ml/min/1.73 sqM); Albumin 2.7 g/dL (3.5-5.0); Alkaline Phosphatase 38 U/L (38-126); Anion Gap 4 mmol/L; Blood Urea Nitrogen 13 mg/dL (9-20); Calcium 8.5 mg/dL (8.4-10.2); Carbon Dioxide 25 mmol/L (22-30); Chloride 106 mmol/L (98-107); Glucose 106 mg/dL (74-99); Magnesium 2.8 mg/dL (1.6-2.3); Non-African American GFR(CKD) >90 (>60 ml/min/1.73 sqM); Potassium 4.2 mmol/L (3.5-5.1); Sodium 135 mmol/L (137-145); Total Bilirubin 0.6 mg/dL (0.2-1.3); Total Protein 4.8 g/dL (6.3-8.2)
[2020-03-23] MEDS: HEPARIN SOD,PORK IN 0.45% NACL 25,000 UNIT in 0.45% NACL 1 250ML.BAG IV SCH (15:42)
[2020-03-23] MEDS: CLEVIDIPINE BUTYRATE 25 MG in EMPTY BAG 1 BAG IV SCH ×2 (15:43→16:48)
[2020-03-23 15:45] LABS: ABG Base Excess 0.5 mmol/L; ABG HCO3 27 mmol/L (21-25); ABG Oxygen Saturation 97.7 % (94-97); ABG PCO2 56 mmHg (35-45); ABG PH 7.29 (7.35-7.45); ABG PO2 123 mmHg (83-108); ABG TCO2 29 mmol/L (19-24); Allen Test Performed? Yes
[2020-03-23] MEDS: LACTATED RINGERS 1,000 ML IV SCH (15:46)
[2020-03-23 15:48] LABS: INR 1.1 (<1.2); Partial Thromboplastin Time 32.6 sec (22.0-30.0); Prothrombin Time 11.2 sec (9.0-12.0)
[2020-03-23] MEDS ORDERED: IPRATROPIUM-ALBUTEROL 3 ML NEB INHALATION SCH (16:00)
[2020-03-23 16:17] LABS: Glucose,Whole Blood 105 mg/dL (75-99)
[2020-03-23 17:21] LABS: Glucose,Whole Blood 123 mg/dL (75-99)
[2020-03-23] MEDS: ACETAMINOPHEN IV (For NPO) 1,000 MG in EMPTY BAG 1 BAG IVPB SCH ×2 (17:57→23:48)
[2020-03-23] MEDS: ALBUMIN HUMAN 5% 250 ML in EMPTY BAG 1 BAG IVPB PRN (18:16)
[2020-03-23 18:35] LABS: Glucose,Whole Blood 134 mg/dL (75-99)
[2020-03-23 18:45] LABS: Basophils # (A) 0.1 k/uL (0-0.2); Basophils % (A) 0 %; Eosinophils % (A) 0 %; HCT 40.3 % (39.0-53.0); HGB 13.2 gm/dL (13.0-17.5); Lymphocytes # (A) 0.6 k/uL (1.0-4.8); Lymphocytes % (A) 5 %; MCH 28.2 pg (25.0-35.0); MCHC 32.6 g/dL (31.0-37.0); MCV 86.6 fL (80.0-100.0); Mean Platelet Volume 7.2; Monocytes # (A) 1.1 k/uL (0-1.0); Monocytes % (A) 8 %; Neutrophils # (A) 10.6 k/uL (1.3-7.7); Neutrophils % (A) 84 %; Platelet Count 172 k/uL (150-450); RBC 4.66 m/uL (4.30-5.90); RDW 13.3 % (11.5-15.5); WBC 12.6 k/uL (3.8-10.6)
[2020-03-23 19:13] LABS: Glucose,Whole Blood 126 mg/dL (75-99)
[2020-03-23] MEDS: IPRATROPIUM-ALBUTEROL 3 ML NEB INHALATION SCH (19:21)
[2020-03-23 19:35] LABS: ABG Base Excess 0.5 mmol/L; ABG HCO3 25 mmol/L (21-25); ABG Oxygen Saturation 97.4 % (94-97); ABG PCO2 41 mmHg (35-45); ABG PO2 99 mmHg (83-108); ABG TCO2 27 mmol/L (19-24)
[2020-03-23 20:14] LABS: Glucose,Whole Blood 113 mg/dL (75-99)
[2020-03-23] MEDS: KETOROLAC 15 MG/ML 1 ML VIAL IVP SCH (20:22)
[2020-03-23 20:26] LABS: Allen Test Performed? no
[2020-03-23 21:00] LABS: Glucose,Whole Blood 119 mg/dL (75-99)
[2020-03-23] MEDS: TAMSULOSIN 0.4 MG CAP.ER.24H PO SCH (21:00)
[2020-03-23 21:25] LABS: Basophils % (A) 0 %; Eosinophils % (A) 0 %; HCT 39.5 % (39.0-53.0); HGB 13.1 gm/dL (13.0-17.5); Lymphocytes # (A) 0.6 k/uL (1.0-4.8); Lymphocytes % (A) 4 %; MCH 28.5 pg (25.0-35.0); MCHC 33.2 g/dL (31.0-37.0); Mean Platelet Volume 7.5; Monocytes % (A) 7 %; Neutrophils # (A) 11.2 k/uL (1.3-7.7); Neutrophils % (A) 86 %; Platelet Count 162 k/uL (150-450); RDW 13.2 % (11.5-15.5)
[2020-03-23] MEDS: ONDANSETRON 4 MG/2 ML VIAL IVP PRN (21:59)
[2020-03-23 22:13] LABS: Glucose,Whole Blood 120 mg/dL (75-99)
[2020-03-23] MEDS: HEPARIN SODIUM,PORCINE 5,000 UNIT/ML 1 ML VIAL SQ SCH (22:30)
[2020-03-23 23:03] LABS: Glucose,Whole Blood 121 mg/dL (75-99)
--- NOTE | 2020-03-23 23:54 | OP ---
OPERATIVE REPORT DATE OF SURGERY: 03/23/2020 PREOPERATIVE DIAGNOSIS: Coronary artery disease. POSTOPERATIVE DIAGNOSIS: Coronary artery disease. PROCEDURE: 1. Coronary artery bypass grafting x4 vessels (left internal mammary artery to left anterior descending artery, radial artery to obtuse marginal artery, saphenous vein graft to diagonal artery, saphenous vein graft to posterior descending artery). 2. Endoscopic harvest left greater saphenous vein. 3. Endoscopic harvest of left radial artery. 4. Ligation of left atrial appendage using 35 mm AtriClip. 5. Epiaortic ultrasound. 6. Transesophageal echocardiogram. SURGEON: Teddy Hdez MD ASSISTANTS: 1. REZA Laughlin. 2. REZA Araiza. 3. REZA Tsai. ANESTHESIA: General. SPECIMEN: None. COMPLICATION: None. INDICATION: The patient is a 60-year-old male with a past medical history significant for GERD, hyperlipidemia and BPH, who presented to the hospital with chest pain and shortness of breath. Stress echocardiogram was abnormal. Cardiac catheterization revealed multivessel coronary artery disease including a tight proximal left anterior descending artery lesion. Coronary artery bypass was recommended. The risks, benefits, and alternatives of the procedure were discussed with the patient. All his questions were answered. Consent was obtained. FINDINGS: The left internal mammary artery was a good conduit with brisk flow. The saphenous vein was a good conduit. The radial artery was a good conduit. The LAD measured 1.5 mm. The diagonal artery was 1.3 mm. The obtuse marginal artery measured 1.3 mm. The posterior descending artery measured 1.3 mm. PROCEDURE IN DETAIL: The patient was taken to the operating room and placed supine on the operating table. After the induction of general anesthesia, he was prepped and draped in the usual sterile fashion. Preoperative transesophageal echocardiogram confirmed an ejection fraction of about 40% to 45% with no significant valvular pathology. A median sternotomy was performed. The left internal mammary artery was harvested in the standard fashion taking care to clip all branches. Intravenous heparin was administered and the vessel was transected distally revealing brisk flow. Simultaneously, greater saphenous vein was harvested from the left lower extremity. In addition, the radial artery was harvested in endoscopic fashion of the left upper extremity. All 3 vessels were good conduits. A pericardial cradle was created. The ascending aorta was palpated. There was no significant calcific plaque noted. Epiaortic ultrasound was then performed on the ascending aorta. Again no calcific plaque or atheromatous disease was identified. An arterial cannula was placed in the distal ascending aorta. A venous cannula was placed through the right atrial appendage and directed into the IVC. Both antegrade and retrograde catheters were placed as well. The patient was then placed on cardiopulmonary bypass with good decompression of the heart. The aortic cross- clamp was applied. Cold blood potassium cardioplegia was delivered in both antegrade and retrograde fashion to achieve arrest of the heart. Of note, cardioplegia was delivered every 15 to 20 minutes while the patient remained under cross-clamp. I began by identifying the left atrial appendage. A 35 mm Atriclip was placed across its base to ensure ligation. Next, the inferior wall was inspected. The posterior descending artery was identified. It was dissected free. A small arteriotomy was created. This vessel accepted a 1 mm probe. Using saphenous vein in a reverse fashion, an end-to-side anastomosis was created. This was performed using running 7-0 Prolene suture. The graft was hemostatic and had good flow. Next, the lateral wall was inspected. The obtuse marginal artery was identified. It was dissected free. A small arteriotomy was created. This vessel accepted a 1 mm probe. Using the radial artery, an end-to-side anastomosis was created. This was performed using running 7-0 Prolene suture. The graft was hemostatic and had good flow. Next, the anterior wall was inspected. The diagonal artery was dissected free. A small arteriotomy was created. This vessel accepted a 1 mm probe. Using saphenous vein in a reverse fashion, an end-to-side anastomosis was created. This was performed using running 7-0 Prolene suture. The graft was hemostatic and had good flow. Finally, the left anterior descending artery was identified in its mid portion. This was dissected free. A small arteriotomy was created. This vessel accepted a 1.5 mm probe. Using the left internal mammary artery, an end-to-side anastomosis was created. This was performed using 8-0 Prolene suture. The graft was hemostatic. The mammary pedicle was then tacked down to the anterior surface of the heart. Attention was then turned to the proximal anastomoses. These were performed in an end-to- side fashion using running 6-0 Prolene sutures. One liter of warm blood was delivered in retrograde fashion. Both lidocaine and magnesium were administered as well. The aortic cross-clamp was removed. Distal anastomoses were inspected and appeared to be hemostatic. Temporary atrial and ventricular pacing wires were placed and brought through the skin. The patient was then weaned off cardiopulmonary bypass. He without difficulty. Follow-up transesophageal cardiogram revealed improved left ventricular ejection fraction and no valvular pathology. Protamine was administered. There were no adverse reactions. The remaining cannulas were removed. The mediastinum was copiously irrigated with warm saline solution. All surgical sites were again inspected and appeared to be hemostatic. Soft tissues were reapproximated over the ascending aorta as well as over the apex of the heart. Straight 32-[place] chest tubes were placed and directed into both left and right pleural spaces. A 36-[place] chest tube was placed and directed into the mediastinum. These were all secured to the skin using sutures. The sternum was then reapproximated using the [place] cable system. The cables were placed in a [id number] fashion. At the completion of the closure, the sternum was well aligned. The remainder of the wound was closed in layers. A sterile dressing was applied. The patient appeared to tolerate the procedure well. There were no immediate complications. He returned to the CVICU in critical but stable condition. He did not receive any intraoperative blood products. He was not on any pressor support. MMODL / IJN: [id number] / MTDTonia
[2020-03-24 00:02] LABS: Glucose,Whole Blood 120 mg/dL (75-99)
[2020-03-24] MEDS: KETOROLAC 15 MG/ML 1 ML VIAL IVP SCH ×5 (00:12→23:51)
[2020-03-24] MEDS: ALBUMIN HUMAN 5% 250 ML in EMPTY BAG 1 BAG IVPB PRN ×2 (00:32→21:22)
[2020-03-24 01:05] LABS: Glucose,Whole Blood 121 mg/dL (75-99)
[2020-03-24 02:00] LABS: Glucose,Whole Blood 121 mg/dL (75-99)
[2020-03-24 03:04] LABS: Glucose,Whole Blood 119 mg/dL (75-99)
[2020-03-24] MEDS: HYDROcodone/APAP 5-325MG 1 EACH TAB PO PRN ×5 (03:28→23:52)
[2020-03-24 04:00] LABS: Glucose,Whole Blood 123 mg/dL (75-99)
[2020-03-24 04:18] LABS: Basophils % (A) 0 %; Eosinophils % (A) 0 %; HCT 37.7 % (39.0-53.0); HGB 12.4 gm/dL (13.0-17.5); Lymphocytes # (A) 0.8 k/uL (1.0-4.8); Lymphocytes % (A) 7 %; MCH 28.4 pg (25.0-35.0); MCHC 32.8 g/dL (31.0-37.0); MCV 86.4 fL (80.0-100.0); Mean Platelet Volume 7.6; Monocytes # (A) 1.1 k/uL (0-1.0); Monocytes % (A) 9 %; Neutrophils # (A) 9.5 k/uL (1.3-7.7); Neutrophils % (A) 81 %; Platelet Count 145 k/uL (150-450); RBC 4.36 m/uL (4.30-5.90); RDW 13.4 % (11.5-15.5); WBC 11.8 k/uL (3.8-10.6)
[2020-03-24 04:23] LABS: Ionized Calcium 4.8 mg/dL (4.5-5.3)
[2020-03-24 04:31] LABS: ALT 75 U/L (4-49); AST 103 U/L (17-59); African American GFR (CKD) >90 (>60 ml/min/1.73 sqM); Albumin 3.3 g/dL (3.5-5.0); Alkaline Phosphatase 39 U/L (38-126); Anion Gap 5 mmol/L; Blood Urea Nitrogen 14 mg/dL (9-20); Calcium 8.5 mg/dL (8.4-10.2); Carbon Dioxide 25 mmol/L (22-30); Chloride 104 mmol/L (98-107); Glucose 121 mg/dL (74-99); Non-African American GFR(CKD) >90 (>60 ml/min/1.73 sqM); Potassium 4.3 mmol/L (3.5-5.1); Sodium 134 mmol/L (137-145); Total Bilirubin 1.1 mg/dL (0.2-1.3); Total Protein 5.4 g/dL (6.3-8.2)
[2020-03-24 05:06] LABS: Glucose,Whole Blood 120 mg/dL (75-99)
[2020-03-24] MEDS: ONDANSETRON 4 MG/2 ML VIAL IVP PRN ×2 (05:07→23:58)
[2020-03-24 07:03] LABS: Glucose,Whole Blood 130 mg/dL (75-99)
[2020-03-24] MEDS ORDERED: fentaNYL (PF) 50 MCG/ML 2 ML AMP IVP ONE (07:27)
--- NOTE | 2020-03-24 07:41 | XR ---
EXAMINATION TYPE: XR chest 1V portable DATE OF EXAM: 03/24/2020 HISTORY: Post Op CABG COMPARISON: 03/23/2020 TECHNIQUE: Single view of the chest is submitted. FINDINGS: Endotracheal and NG tubes have been removed. SG catheter, mediastinal drains and chest tubes are appr opriately placed. Post operative changes of CABG. No sizeable pneumothorax. Scattered Pleural-parenchymal opacities may reflect atelectasis. The heart is not enlarged. IMPRESSION: 1. Post operative changes of CABG.
[2020-03-24 08:15] LABS: Glucose,Whole Blood 128 mg/dL (75-99)
[2020-03-24] MEDS: IPRATROPIUM-ALBUTEROL 3 ML NEB INHALATION SCH ×4 (08:20→19:38)
[2020-03-24] MEDS: CHOLECALCIFEROL 1,000 UNIT TAB PO SCH (08:25)
[2020-03-24] MEDS: ASPIRIN 325 MG TAB PO SCH (08:26)
[2020-03-24] MEDS: CLOPIDOGREL 75 MG TAB PO SCH (08:27)
[2020-03-24] MEDS: HEPARIN SODIUM,PORCINE 5,000 UNIT/ML 1 ML VIAL SQ SCH ×3 (08:27→23:51)
[2020-03-24] MEDS: ASCORBIC ACID 500 MG TAB PO SCH (08:27)
[2020-03-24] MEDS: ATORVASTATIN 40 MG TAB PO SCH (08:28)
[2020-03-24 08:52] LABS: Glucose,Whole Blood 135 mg/dL (75-99)
[2020-03-24] MEDS ORDERED: METOPROLOL TARTRATE 12.5 MG TAB PO SCH (09:00)
[2020-03-24] MEDS ORDERED: PANTOPRAZOLE 40 MG/10 ML VIAL IVP SCH (09:00)
[2020-03-24] MEDS ORDERED: MAGNESIUM HYDROXIDE 2,400 MG/10 ML CUP PO PRN (09:00)
[2020-03-24] MEDS ORDERED: bisacodyL 10 MG SUPP RECTAL PRN (09:00)
[2020-03-24] MEDS ORDERED: METOPROLOL TARTRATE 25 MG TAB PO SCH (09:15)
--- NOTE | 2020-03-24 10:13 | P.PN ---
Subjective Progress Note Date: 03/24/20 Principal diagnosis: Coronary artery disease. Previous medical history of hyperlipidemia, BPH, lifelong nonsmoker, father with history of aortic aneurysm, both grandfathers diagnosed with heart disease in their early 50s POD #1 coronary artery bypass grafting 4 vessels, left internal mammary artery to the left anterior descending artery, left radial artery to the obtuse little inal artery, reverse saphenous vein graft to the diagonal artery, reverse saphenous vein graft to the posterior descending artery, endoscopic harvesting of the left greater saphenous vein, endoscopic harvesting of the left radial artery, ligation of the left atrial appendage using a 35 mm AtriClip, epi-aortic ultrasound, intraoperative transesophageal echocardiogram. The patient is currently sitting up in a recliner on the intensive care unit in no acute distress. He was successfully extubated last night at 19:43. He does complain of significant post surgical pain and inability to sleep last night, but no other new complaints. Right internal jugular Summit/Cordis, right radial arterial line, mediastinal, left or right pleural chest tubes all present. Patient had an uneventful first postoperative night with the exception of pain issues. Objective - Vital Signs Vital signs: Vital Signs Temp 97.4 F L 03/23/20 06:22 Pulse 79 03/24/20 09:30 Resp 20 03/24/20 09:30 BP 129/63 03/24/20 08:00 Pulse Ox 96 03/24/20 09:30 Intake & Output 03/23/20 03/24/20 03/24/20 18:59 06:59 18:59 Intake Total 441.506 2645.0 253.5 Output Total 2741 1066 179 Balance -1928.269 550.0 74.5 Weight 102.2 kg Intake: IV 695.0 1486.0 253.5 ACETAMINOPHEN IV (For NPO 100 100 ) 1,000 mg In Empty Bag 1 bag @ 400 mls/hr IVPB Q6HR [facility] Rx#:[id number] Albumin Human 5% 250 ml 250 250 In Empty Bag 1 bag @ 250 mls/hr IVPB Q1HR PRN Rx#: [id number] CO/CI injectate 300 60 Diltiazem 125 mg In 20 60 15 Sodium Chloride 0.9% 100 ml @ 5 MG/HR 5 mls/hr IV .Q24H [facility] Rx#:[id number] Lactated Ringers 1,000 ml 200 600 150 @ 50 mls/hr IV .Q20H [facility] Rx#:[id number] Nitroglycerin-D5w Pmx 50 6.0 18.0 1.5 mg In Dextrose/Water 1 250ml.bag @ 5 MCG/MIN 1.5 mls/hr IV .Q24H [facility] Rx#: [id number] Pressure Bag 36 108 27 ceFAZolin 2 gm In Sodium 50 50 Chloride 0.9% 30 ml @ 60 mls/hr IVPB ONCE ONE Rx#: [id number] Intake, IV Titration 117.731 Amount Clevidipine Butyrate 25 67.066 mg In Empty Bag 1 bag @ 1 MG/HR 2 mls/hr IV .Q24H [facility] Rx#:[id number] Dexmedetomidine/0.9% NaCl 2.368 (Pmx) 400 mcg In Empty Bag 1 bag @ Titrate IV . Q0M [facility] Rx#:[id number] propofoL 1,000 mg In 48.297 Empty Bag 1 bag @ Titrate IV .Q0M [facility] Rx#: [id number] Oral 130 Output: Chest Tube Drainage 191 326 80 Left/Right Pleural 51 116 40 Mediastinal 140 210 40 Drainage 15 Left Wrist 15 Urine 1350 740 84 Estimated Blood Loss 1200 Other: Voiding Method Indwelling Catheter Indwelling Catheter Indwelling Catheter ABP, PAP, CO, CI - Last Documented Arterial Blood Pressure 146/47 Pulmonary Artery Pressure 14/7 Cardiac Output 7 Cardiac Index 3.2 - Constitutional General appearance: Present: cooperative, no acute distress - Respiratory Details: Lungs sounds diminished bilaterally. Respirations even, nonlabored. Currently on 2 L nasal cannula with oxygen saturation 95%. Only able to achieve 500-750 mL on his incentive spirometry. Weak cough. Mediastinal chest tube present to continuous wall suction, 130 milliliters serosanguineous drainage overnight, 400 mL since surgery. Right/left pleural chest tubes present, 70 mL thin serosanguineous drainage overnight, 190 mL since surgery. No air leaks present. - Cardiovascular Details: S1, S2 present. Regular rate and rhythm, sinus rhythm on telemetry. Sternum stable. A/V epicardial pacemaker wires present, connected to generator, AAI mode with a backup rate 50 bpm. Palpable peripheral pulses bilaterally. No edema present. No calf pain or tenderness noted. Right internal jugular Summit/Cordis, right radial arterial line present. Last CO/CI 7.0/3.2 on no inotropes or pressors. Heart hugger in place with patient attempting to demonstrate appropriate use. Antiembolism stockings, SCDs present. - Gastrointestinal Gastrointestinal Comment(s): Abdomen soft, nontender, nondistended. Hypoactive bowel sounds present 4 quadrants. Tolerating ice chips. Negative flatus - Genitourinary Genitourinary Comment(s): Wolfe present draining clear, yellow urine. Output 60-70 mL/h overnight - Integumentary Integumentary Comment(s): Skin is warm and dry with evidence of good perfusion. Anterior chest incision well approximated and covered with dry intact dressing. Left radial artery harvest site well approximated with MELANIE drain, minimal drainage, patient able to move all his fingers and project manager interior design appropriately, good cap refill, denies numbness or tingling. Left lower extremity EVH site well approximated - Neurologic Neurologic: Present: CNII-XII intact - Musculoskeletal Musculoskeletal: Present: strength equal bilaterally - Psychiatric Psychiatric: Present: A&O x's 3, appropriate affect, intact judgment & insight - Allied health notes Allied health notes reviewed: nursing - Labs CBC & Chem 7: 03/24/20 03:57 03/24/20 03:57 Labs: Abnormal Lab Results - Last 24 Hours (Table) 03/22/20 03/23/20 03/23/20 Range/Units 08:11 14:57 14:58 WBC 12.2 H (3.8-10.6) k/uL Hgb (13.0-17.5) gm/dL Hct 38.6 L (39.0-53.0) % Plt Count 141 L (150-450) k/uL Neutrophils # 9.9 H (1.3-7.7) k/uL Lymphocytes # (1.0-4.8) k/uL Monocytes # (0-1.0) k/uL APTT (22.0-30.0) sec ABG pH (7.35-7.45) ABG pCO2 (35-45) mmHg ABG pO2 (83-108) mmHg ABG HCO3 (21-25) mmol/L ABG Total CO2 (19-24) mmol/L ABG O2 Saturation (94-97) % Sodium (137-145) mmol/L Glucose (74-99) mg/dL POC Glucose (mg/dL) 100 H (75-99) mg/dL Magnesium (1.6-2.3) mg/dL AST (17-59) U/L ALT (4-49) U/L Total Protein (6.3-8.2) g/dL Albumin (3.5-5.0) g/dL Crossmatch See Detail 03/23/20 03/23/20 03/23/20 Range/Units 14:58 14:58 15:43 WBC (3.8-10.6) k/uL Hgb (13.0-17.5) gm/dL Hct (39.0-53.0) % Plt Count (150-450) k/uL Neutrophils # (1.3-7.7) k/uL Lymphocytes # (1.0-4.8) k/uL Monocytes # (0-1.0) k/uL APTT 32.6 H (22.0-30.0) sec ABG pH 7.29 L (7.35-7.45) ABG pCO2 56 H (35-45) mmHg ABG pO2 123 H (83-108) mmHg ABG HCO3 27 H (21-25) mmol/L ABG Total CO2 29 H (19-24) mmol/L ABG O2 Saturation 97.7 H (94-97) % Sodium 135 L (137-145) mmol/L Glucose 106 H (74-99) mg/dL POC Glucose (mg/dL) (75-99) mg/dL Magnesium 2.8 H (1.6-2.3) mg/dL AST 127 H (17-59) U/L ALT 86 H (4-49) U/L Total Protein 4.8 L (6.3-8.2) g/dL Albumin 2.7 L (3.5-5.0) g/dL Crossmatch 03/23/20 03/23/20 03/23/20 Range/Units 16:06 17:11 18:20 WBC 12.6 H (3.8-10.6) k/uL Hgb (13.0-17.5) gm/dL Hct (39.0-53.0) % Plt Count (150-450) k/uL Neutrophils # 10.6 H (1.3-7.7) k/uL Lymphocytes # 0.6 L (1.0-4.8) k/uL Monocytes # 1.1 H (0-1.0) k/uL APTT (22.0-30.0) sec ABG pH (7.35-7.45) ABG pCO2 (35-45) mmHg ABG pO2 (83-108) mmHg ABG HCO3 (21-25) mmol/L ABG Total CO2 (19-24) mmol/L ABG O2 Saturation (94-97) % Sodium (137-145) mmol/L Glucose (74-99) mg/dL POC Glucose (mg/dL) 105 H 123 H (75-99) mg/dL Magnesium (1.6-2.3) mg/dL AST (17-59) U/L ALT (4-49) U/L Total Protein (6.3-8.2) g/dL Albumin (3.5-5.0) g/dL Crossmatch 03/23/20 03/23/20 03/23/20 Range/Units 18:24 19:01 19:33 WBC (3.8-10.6) k/uL Hgb (13.0-17.5) gm/dL Hct (39.0-53.0) % Plt Count (150-450) k/uL Neutrophils # (1.3-7.7) k/uL Lymphocytes # (1.0-4.8) k/uL Monocytes # (0-1.0) k/uL APTT (22.0-30.0) sec ABG pH (7.35-7.45) ABG pCO2 (35-45) mmHg ABG pO2 (83-108) mmHg ABG HCO3 (21-25) mmol/L ABG Total CO2 27 H (19-24) mmol/L ABG O2 Saturation 97.4 H (94-97) % Sodium (137-145) mmol/L Glucose (74-99) mg/dL POC Glucose (mg/dL) 134 H 126 H (75-99) mg/dL Magnesium (1.6-2.3) mg/dL AST (17-59) U/L ALT (4-49) U/L Total Protein (6.3-8.2) g/dL Albumin (3.5-5.0) g/dL Crossmatch 03/23/20 03/23/20 03/23/20 Range/Units 20:08 20:57 20:57 WBC 13.0 H (3.8-10.6) k/uL Hgb (13.0-17.5) gm/dL Hct (39.0-53.0) % Plt Count (150-450) k/uL Neutrophils # 11.2 H (1.3-7.7) k/uL Lymphocytes # 0.6 L (1.0-4.8) k/uL Monocytes # (0-1.0) k/uL APTT (22.0-30.0) sec ABG pH (7.35-7.45) ABG pCO2 (35-45) mmHg ABG pO2 (83-108) mmHg ABG HCO3 (21-25) mmol/L ABG Total CO2 (19-24) mmol/L ABG O2 Saturation (94-97) % Sodium (137-145) mmol/L Glucose (74-99) mg/dL POC Glucose (mg/dL) 113 H 119 H (75-99) mg/dL Magnesium (1.6-2.3) mg/dL AST (17-59) U/L ALT (4-49) U/L Total Protein (6.3-8.2) g/dL Albumin (3.5-5.0) g/dL Crossmatch 03/23/20 03/23/20 03/24/20 Range/Units 22:11 23:01 00:01 WBC (3.8-10.6) k/uL Hgb (13.0-17.5) gm/dL Hct (39.0-53.0) % Plt Count (150-450) k/uL Neutrophils # (1.3-7.7) k/uL Lymphocytes # (1.0-4.8) k/uL Monocytes # (0-1.0) k/uL APTT (22.0-30.0) sec ABG pH (7.35-7.45) ABG pCO2 (35-45) mmHg ABG pO2 (83-108) mmHg ABG HCO3 (21-25) mmol/L ABG Total CO2 (19-24) mmol/L ABG O2 Saturation (94-97) % Sodium (137-145) mmol/L Glucose (74-99) mg/dL POC Glucose (mg/dL) 120 H 121 H 120 H (75-99) mg/dL Magnesium (1.6-2.3) mg/dL AST (17-59) U/L ALT (4-49) U/L Total Protein (6.3-8.2) g/dL Albumin (3.5-5.0) g/dL Crossmatch 03/24/20 03/24/20 03/24/20 Range/Units 01:03 01:59 03:02 WBC (3.8-10.6) k/uL Hgb (13.0-17.5) gm/dL Hct (39.0-53.0) % Plt Count (150-450) k/uL Neutrophils # (1.3-7.7) k/uL Lymphocytes # (1.0-4.8) k/uL Monocytes # (0-1.0) k/uL APTT (22.0-30.0) sec ABG pH (7.35-7.45) ABG pCO2 (35-45) mmHg ABG pO2 (83-108) mmHg ABG HCO3 (21-25) mmol/L ABG Total CO2 (19-24) mmol/L ABG O2 Saturation (94-97) % Sodium (137-145) mmol/L Glucose (74-99) mg/dL POC Glucose (mg/dL) 121 H 121 H 119 H (75-99) mg/dL Magnesium (1.6-2.3) mg/dL AST (17-59) U/L ALT (4-49) U/L Total Protein (6.3-8.2) g/dL Albumin (3.5-5.0) g/dL Crossmatch 03/24/20 03/24/20 03/24/20 Range/Units 03:57 03:57 03:57 WBC 11.8 H (3.8-10.6) k/uL Hgb 12.4 L (13.0-17.5) gm/dL Hct 37.7 L (39.0-53.0) % Plt Count 145 L (150-450) k/uL Neutrophils # 9.5 H (1.3-7.7) k/uL Lymphocytes # 0.8 L (1.0-4.8) k/uL Monocytes # 1.1 H (0-1.0) k/uL APTT (22.0-30.0) sec ABG pH (7.35-7.45) ABG pCO2 (35-45) mmHg ABG pO2 (83-108) mmHg ABG HCO3 (21-25) mmol/L ABG Total CO2 (19-24) mmol/L ABG O2 Saturation (94-97) % Sodium 134 L (137-145) mmol/L Glucose 121 H (74-99) mg/dL POC Glucose (mg/dL) 123 H (75-99) mg/dL Magnesium (1.6-2.3) mg/dL AST 103 H (17-59) U/L ALT 75 H (4-49) U/L Total Protein 5.4 L (6.3-8.2) g/dL Albumin 3.3 L (3.5-5.0) g/dL Crossmatch 03/24/20 03/24/20 03/24/20 Range/Units 05:04 07:01 08:13 WBC (3.8-10.6) k/uL Hgb (13.0-17.5) gm/dL Hct (39.0-53.0) % Plt Count (150-450) k/uL Neutrophils # (1.3-7.7) k/uL Lymphocytes # (1.0-4.8) k/uL Monocytes # (0-1.0) k/uL APTT (22.0-30.0) sec ABG pH (7.35-7.45) ABG pCO2 (35-45) mmHg ABG pO2 (83-108) mmHg ABG HCO3 (21-25) mmol/L ABG Total CO2 (19-24) mmol/L ABG O2 Saturation (94-97) % Sodium (137-145) mmol/L Glucose (74-99) mg/dL POC Glucose (mg/dL) 120 H 130 H 128 H (75-99) mg/dL Magnesium (1.6-2.3) mg/dL AST (17-59) U/L ALT (4-49) U/L Total Protein (6.3-8.2) g/dL Albumin (3.5-5.0) g/dL Crossmatch 03/24/20 Range/Units 08:50 WBC (3.8-10.6) k/uL Hgb (13.0-17.5) gm/dL Hct (39.0-53.0) % Plt Count (150-450) k/uL Neutrophils # (1.3-7.7) k/uL Lymphocytes # (1.0-4.8) k/uL Monocytes # (0-1.0) k/uL APTT (22.0-30.0) sec ABG pH (7.35-7.45) ABG pCO2 (35-45) mmHg ABG pO2 (83-108) mmHg ABG HCO3 (21-25) mmol/L ABG Total CO2 (19-24) mmol/L ABG O2 Saturation (94-97) % Sodium (137-145) mmol/L Glucose (74-99) mg/dL POC Glucose (mg/dL) 135 H (75-99) mg/dL Magnesium (1.6-2.3) mg/dL AST (17-59) U/L ALT (4-49) U/L Total Protein (6.3-8.2) g/dL Albumin (3.5-5.0) g/dL Crossmatch - Imaging and Cardiology Chest x-ray: report reviewed, image reviewed Assessment and Plan Assessment: 1. Coronary artery disease, status post four-vessel CABG 2. Hyperlipidemia 3. BPH 4. Lifelong nonsmoker 5. Father with history of aortic aneurysm 6. Both grandfathers with coronary artery diagnosis in their early 50s Plan: 1. Continue aspirin, statin, Plavix, beta april therapy. Will increase beta april therapy as tolerated 2. Wean O2 as tolerated. Encourage continued incentive spirometry use. Bronchodilators per pulmonology 3. Increase activity, ambulate as tolerated. PT/OT/cardiac rehab consulted 4. Will start Norvasc for radial artery spasm. Discontinue IV Cardizem after oral Norvasc given. Do not discontinue CCB without discussing with cardiac surgery 5. Will monitor daily labs and x-rays. Electrographic replacement per protocol. 6. GI/DVT prophylaxis 7. Pain control with current medication regimen 8. Insulin management per primary care services. Patient is not diabetic, hemoglobin A1c 6.2% 9. Discontinue Summit. Connect Cordis to continuous CVP monitoring. Discontinue MELANIE drain 10. We will keep chest tubes for another 24 hours 11. Keep Wolfe for another 24 hours for strict accurate intake and output 12. More recommendations to follow Time with Patient: Greater than 30
[2020-03-24 10:14] LABS: Glucose,Whole Blood 128 mg/dL (75-99)
--- NOTE | 2020-03-24 10:26 | PN ---
PROGRESS NOTE Mr. Lang is a gentleman who underwent aortocoronary bypass surgery yesterday with 4 grafts, CASTAÑEDA to LAD, free radial artery graft to the OM and separate vein graft to the diagonal and PDA branch of RCA. He is doing better. He is off the vent. He is not on any pressors, complains of some pain. He is on a Cardizem drip and also insulin drip. PHYSICAL EXAMINATION: Vitals are stable, rhythm is sinus, S1-S2 heard normally. Pericardial rub is audible. Lungs reveal fair air entry. Abdomen and lower extremity exam unchanged. Plan is to continue current supportive care and pain medications. No other new suggestions, based on clinical course, will make further recommendations. MMODL / IJN: [id number] /
[2020-03-24] MEDS: METOCLOPRAMIDE 5 MG/ML 2 ML VIAL IVP PRN (10:29)
[2020-03-24] MEDS: amLODIPine 5 MG TAB PO SCH (10:30)
--- NOTE | 2020-03-24 10:31 | P.ARTDOP ---
Arterial Doppler Bilateral radial artery testing: Date of study: 03/18/2020 Reason for study: Pre-CABG Findings: Doppler assessment shows no significant right to left or segmental pressure gradient Digital plethysmography with radial artery compression shows no significant pressure changes. Imaging shows the right to be 4.6 x 3.6 mm proximally, 3.9 x 3.4 mm mid, 4.2 x 3.2 mm distally. The left radial is 3.8 x 3.6 mm proximally, 4.0 x 3.2 mm mid, 4.0 x 3.2 mm distally. Both radial arteries appear to be quite satisfactory for use as conduit.
--- NOTE | 2020-03-24 10:44 | P.ARTDOP ---
Arterial Doppler LOWER EXTREMITY ARTERIAL DOPPLER: DATE OF SERVICE: 03/18/2020 Reason for study: Pre-CABG. Doppler waveforms: Multiphasic bilaterally throughout. Pulse volume recording: []. Pressure gradients: None. Ankle-brachial indices: Greater than 1 bilaterally. Toe brachial indices: Greater than 1 on the right, 0.82 on the left Impression: Normal study.
--- NOTE | 2020-03-24 10:47 | P.VSCSTY ---
Greater Saphenous Vein Mapping This is bilateral lower extremity greater saphenous vein mapping. Date of service: 03/18/2020 Vein quality and ultrasound appearance: We see no intraluminal thrombus or obvious wall changes. Vein size groin right : 6.3 x 7.6 groin left: 6.8 x 7.4 High thigh right: 3.0 x 3.4 high thigh left: 3.2 x 3.7 Mid thigh right: 1.8 x 2.9 mid thigh left: 3.7 x 4.2 Above-knee right: 2.5 x 3.3 above-knee left: 3.1 x 3.4 Below knee right: 2.3 x 2.6 below-knee left: 1.9 x 2.4 Mid calf right: 2.2 x 2.8 mid calf left: 1.6 x 2.7 Ankle right: 1.5 x 1.9 ankle left: 1.3 x 2.3 Impression: Usable greater saphenous vein bilaterally. Areas of both lower legs may be too small to use..
[2020-03-24 10:58] LABS: Glucose,Whole Blood 128 mg/dL (75-99)
[2020-03-24 12:12] LABS: Glucose,Whole Blood 122 mg/dL (75-99)
[2020-03-24 13:17] LABS: Glucose,Whole Blood 123 mg/dL (75-99)
--- NOTE | 2020-03-24 14:03 | P.PN ---
Subjective Progress Note Date: 03/24/20 Principal diagnosis: Status post CABG. Postoperative day #1 pH This is a very pleasant 60-year-old gentleman who follows with Dr. Medrano as his primary care provider. He has a history of hyperlipidemia. He had been developing exertional chest discomfort and a stress echocardiogram revealed anteroseptal and anterior apical hypokinesis. He was brought in yesterday for an elective cardiac catheterization and was found to have a 99% stenosis of the LAD, 94% stenosis of the circumflex and 70% stenosis of the proximal RCA, should be elevated with an area of 70-80%. Ejection fraction 55-60%. He has been seen and evaluated by cardiothoracic surgery and the plan is for coronary revascularization early next week. Currently he is seen in consultation on the selective care unit. He is awake and alert in no acute distress. Resting quite comfortably in bed. Denies any chest discomfort currently. No shortness of breath, cough or congestion. He is a lifelong nonsmoker. He is maintaining O2 saturations in the mid 90s on room air. Pulmonary function testing pending. H e's afebrile. Hemodynamically stable. White count 9.5. Hemoglobin 14.8. Sodium 137. Potassium 4.4. Creatinine 0.92. Ashley virus not detected. He remains on a heparin drip. The patient is seen today 03/20/2020 in follow-up on the selective care unit. He is currently sitting up in a chair at the bedside. Awake and alert in no acute distress. Maintaining good O2 saturation 90s on room air. No shortness of breath, cough or congestion. No chest pain, palpitations lightheadedness or dizziness. He remains on heparin drip. Nitropaste in place. White count 8.9. Hemoglobin 15.2. Sodium 138. Potassium 4.3. Creatinine 0.92. The patient is seen today 03/21/2020 in follow-up on the selective care unit. He remains awake and alert in no acute distress. He remains on room air with good O2 saturations in the 90s. No chest discomfort currently. One brief episode of mild chest discomfort while ambulating yesterday. Computed tomography scan of the chest yesterday revealed no acute pulmonary process. White count 7.8. Hemoglobin 14.2. Sodium 138. Potassium 4.2. Creatinine 0 .97. He remains on heparin drip. On 03/22/2020 patient seen in follow-up on selective care unit, he is awake and alert, in no acute distress, resting comfortably in bed, breathing is comfortable, room air pulse ox of 98%, he states that times he'll have mild chest discomfort, otherwise no chest pain, afebrile, remains on heparin infusion, and 0.9 normal saline at a rate of 20 ML per hour, denies any difficulty breathing, chest CT was obtained on 03/19/2020 showing no acute pulmonary process. Today's labs have been reviewed, showing CBC within normal limits, electrolytes and renal profile within normal limits On 03/23/2020 patient is seen in intensive care unit, in the postoperative perio d, status post four-vessel coronary artery bypass grafting. He is sedated, intubated, on mechanical ventilator, on SIMV mode of ventilation, with a rate of 12, tidal blood 600, FiO2 is 100% and PEEP of 5, the rate was increased to 14 breaths per minute upon arrival to the ICU, postoperative blood gases pending, chest x-rays pending. Patient had left radial artery graft. Hemodynamically she is stable, did received Cell Saver and the OR. Mediastinal chest tube with 15 mL of serosanguineous output, left and right pleural chest tubes are Y- connected together, with only 5 mL of sanguinous output. Left radial MELANIE drain with minimal amount of single vessel output, compressed and draining. No v asopressors, point tenderness and a rate of 50 ML per hour, Cardizem infusion at 5 mg per hour, Diprivan infusion per protocol. Patient is being paced via epicardial AV wires, in AAI mode with a rate of 60 BPM, underlying rhythm is sinus bradycardia with a rate of 40 BPM. PA pressures 29/15, cardiac output is 5.1 and cardiac index is 2.3. Reevaluated today on 03/24/20, patient is status post CABG, postoperative day #1. He remains in the ICU, patient had a four-vessel CABG. He is on oxygen at 2 L 96% O2 saturation. He is also on Cardizem at 5 mg per hour. And IV fluid at 50 mL per hour. Insulin 1 unit per hour. His hemodynamics showed a pulmonary artery pressure 18/5 CVP of 2 cardiac output of 7 cardiac index of 3.2. Patient was extubated yesterday at 19:43, tolerated the extubation quite well. Chest x- ray showed mostly minimal postoperative atelectasis. No significant infiltrate or edema. Patient continues to have right internal jugular catheter and Cordis. And he has a right radial arterial line, left and right pleural chest tubes noted. Objective - Vital Signs Vital signs: Vital Signs Temp 98.7 F 03/24/20 12:05 Pulse 80 03/24/20 12:06 Resp 20 03/24/20 12:05 BP 131/70 03/24/20 11:30 Pulse Ox 99 03/24/20 12:05 Intake & Output 03/23/20 03/24/20 03/24/20 18:59 06:59 18:59 Intake Total 491.676 0673.0 564.5 Output Total 2741 1066 504 Balance -1928.269 550.0 60.5 Weight 102.2 kg Intake: IV 695.0 1486.0 414.5 ACETAMINOPHEN IV (For NPO 100 100 ) 1,000 mg In Empty Bag 1 bag @ 400 mls/hr IVPB Q6HR RERE Rx#:[id number] Albumin Human 5% 250 ml 250 250 In Empty Bag 1 bag @ 250 mls/hr IVPB Q1HR PRN Rx#: [id number] CO/CI injectate 300 60 Diltiazem 125 mg In 20 60 25 Sodium Chloride 0.9% 100 ml @ 5 MG/HR 5 mls/hr IV .Q24H RERE Rx#:[id number] Lactated Ringers 1,000 ml 200 600 280 @ 50 mls/hr IV .Q20H RERE Rx#:[id number] Nitroglycerin-D5w Pmx 50 6.0 18.0 1.5 mg In Dextrose/Water 1 250ml.bag @ 5 MCG/MIN 1.5 mls/hr IV .Q24H RERE Rx#: [id number] Pressure Bag 36 108 48 ceFAZolin 2 gm In Sodium 50 50 Chloride 0.9% 30 ml @ 60 mls/hr IVPB ONCE ONE Rx#: [id number] Intake, IV Titration 117.731 Amount Clevidipine Butyrate 25 67.066 mg In Empty Bag 1 bag @ 1 MG/HR 2 mls/hr IV .Q24H RERE Rx#:[id number] Dexmedetomidine/0.9% NaCl 2.368 (Pmx) 400 mcg In Empty Bag 1 bag @ Titrate IV . Q0M RERE Rx#:[id number] propofoL 1,000 mg In 48.297 Empty Bag 1 bag @ Titrate IV .Q0M RERE Rx#: [id number] Oral 130 150 Output: Chest Tube Drainage 191 326 210 Left/Right Pleural 51 116 100 Mediastinal 140 210 110 Drainage 15 Left Wrist 15 Urine 1350 740 279 Estimated Blood Loss 1200 Other: Voiding Method Indwelling Catheter Indwelling Catheter Indwelling Catheter ABP, PAP, CO, CI - Last Documented Arterial Blood Pressure 146/60 Pulmonary Artery Pressure 33/10 Cardiac Output 7 Cardiac Index 3.2 - Exam Physical Exam: Revealed a 60-year-old white male in no distress. Head: Atraumatic, normocephalic. Right IJ catheter and Cordis noted. HEENT:[Neck is supple.] [No neck masses.] [No thyromegaly.] [No JVD.] Chest: Lungs sounds diminished bilaterally. Respirations even, nonlabored. Currently on 2 L nasal cannula with oxygen saturation 95%. Only able to achieve 500-750 mL on his incentive spirometry. Weak cough. Mediastinal chest tube present to continuous wall suction, 130 milliliters serosanguineous drainage overnight, 400 mL since surgery. Right/left pleural chest tubes present, 70 mL thin serosanguineous drainage overnight, 190 mL since surgery. No air leaks present. Cardiac Exam: [Normal S1 and S2, positive pericardial rub..]A/V epicardial pac emaker wires present, connected to generator, AAI mode with a backup rate 50 bpm. Palpable peripheral pulses bilaterally. No edema present. No calf pain or tenderness noted. Right internal jugular Hemlock/Cordis, right radial arterial line present. Last CO/CI 7.0/3.2 on no inotropes or pressors. Heart hugger in place with patient attempting to demonstrate appropriate use. Antiembolism stockings, SCDs present. Abdomen: [Soft, nontender, no megaly, no rebound, no guarding, normal bowel sounds.] Extremities: [No clubbing, no edema, no cyanosis.] Neurological Exam: [No focal neurologic deficit.] Alert and oriented 3. Psychiatric: Normal mood affect and normal mental status examination. Skin: warm and dry with evidence of good perfusion. Anterior chest incision well approximated and covered with dry intact dressing. Left radial artery harvest site well approximated with MELANIE drain, minimal drainage, patient able to move all his fingers and chin strap cutter appropriately, good cap refill, denies numbness or tingling. Left lower extremity EVH site well approximated - Labs CBC & Chem 7: 03/24/20 03:57 03/24/20 03:57 Labs: Abnormal Lab Results - Last 24 Hours (Table) 03/22/20 03/23/20 03/23/20 Range/Units 08:11 14:57 14:58 WBC 12.2 H (3.8-10.6) k/uL Hgb (13.0-17.5) gm/dL Hct 38.6 L (39.0-53.0) % Plt Count 141 L (150-450) k/uL Neutrophils # 9.9 H (1.3-7.7) k/uL Lymphocytes # (1.0-4.8) k/uL Monocytes # (0-1.0) k/uL APTT (22.0-30.0) sec ABG pH (7.35-7.45) ABG pCO2 (35-45) mmHg ABG pO2 (83-108) mmHg ABG HCO3 (21-25) mmol/L ABG Total CO2 (19-24) mmol/L ABG O2 Saturation (94-97) % Sodium (137-145) mmol/L Glucose (74-99) mg/dL POC Glucose (mg/dL) 100 H (75-99) mg/dL Magnesium (1.6-2.3) mg/dL AST (17-59) U/L ALT (4-49) U/L Total Protein (6.3-8.2) g/dL Albumin (3.5-5.0) g/dL Crossmatch See Detail 03/23/20 03/23/20 03/23/20 Range/Units 14:58 14:58 15:43 WBC (3.8-10.6) k/uL Hgb (13.0-17.5) gm/dL Hct (39.0-53.0) % Plt Count (150-450) k/uL Neutrophils # (1.3-7.7) k/uL Lymphocytes # (1.0-4.8) k/uL Monocytes # (0-1.0) k/uL APTT 32.6 H (22.0-30.0) sec ABG pH 7.29 L (7.35-7.45) ABG pCO2 56 H (35-45) mmHg ABG pO2 123 H (83-108) mmHg ABG HCO3 27 H (21-25) mmol/L ABG Total CO2 29 H (19-24) mmol/L ABG O2 Saturation 97.7 H (94-97) % Sodium 135 L (137-145) mmol/L Glucose 106 H (74-99) mg/dL POC Glucose (mg/dL) (75-99) mg/dL Magnesium 2.8 H (1.6-2.3) mg/dL AST 127 H (17-59) U/L ALT 86 H (4-49) U/L Total Protein 4.8 L (6.3-8.2) g/dL Albumin 2.7 L (3.5-5.0) g/dL Crossmatch 03/23/20 03/23/20 03/23/20 Range/Units 16:06 17:11 18:20 WBC 12.6 H (3.8-10.6) k/uL Hgb (13.0-17.5) gm/dL Hct (39.0-53.0) % Plt Count (150-450) k/uL Neutrophils # 10.6 H (1.3-7.7) k/uL Lymphocytes # 0.6 L (1.0-4.8) k/uL Monocytes # 1.1 H (0-1.0) k/uL APTT (22.0-30.0) sec ABG pH (7.35-7.45) ABG pCO2 (35-45) mmHg ABG pO2 (83-108) mmHg ABG HCO3 (21-25) mmol/L ABG Total CO2 (19-24) mmol/L ABG O2 Saturation (94-97) % Sodium (137-145) mmol/L Glucose (74-99) mg/dL POC Glucose (mg/dL) 105 H 123 H (75-99) mg/dL Magnesium (1.6-2.3) mg/dL AST (17-59) U/L ALT (4-49) U/L Total Protein (6.3-8.2) g/dL Albumin (3.5-5.0) g/dL Crossmatch 03/23/20 03/23/20 03/23/20 Range/Units 18:24 19:01 19:33 WBC (3.8-10.6) k/uL Hgb (13.0-17.5) gm/dL Hct (39.0-53.0) % Plt Count (150-450) k/uL Neutrophils # (1.3-7.7) k/uL Lymphocytes # (1.0-4.8) k/uL Monocytes # (0-1.0) k/uL APTT (22.0-30.0) sec ABG pH (7.35-7.45) ABG pCO2 (35-45) mmHg ABG pO2 (83-108) mmHg ABG HCO3 (21-25) mmol/L ABG Total CO2 27 H (19-24) mmol/L ABG O2 Saturation 97.4 H (94-97) % Sodium (137-145) mmol/L Glucose (74-99) mg/dL POC Glucose (mg/dL) 134 H 126 H (75-99) mg/dL Magnesium (1.6-2.3) mg/dL AST (17-59) U/L ALT (4-49) U/L Total Protein (6.3-8.2) g/dL Albumin (3.5-5.0) g/dL Crossmatch 03/23/20 03/23/20 03/23/20 Range/Units 20:08 20:57 20:57 WBC 13.0 H (3.8-10.6) k/uL Hgb (13.0-17.5) gm/dL Hct (39.0-53.0) % Plt Count (150-450) k/uL Neutrophils # 11.2 H (1.3-7.7) k/uL Lymphocytes # 0.6 L (1.0-4.8) k/uL Monocytes # (0-1.0) k/uL APTT (22.0-30.0) sec ABG pH (7.35-7.45) ABG pCO2 (35-45) mmHg ABG pO2 (83-108) mmHg ABG HCO3 (21-25) mmol/L ABG Total CO2 (19-24) mmol/L ABG O2 Saturation (94-97) % Sodium (137-145) mmol/L Glucose (74-99) mg/dL POC Glucose (mg/dL) 113 H 119 H (75-99) mg/dL Magnesium (1.6-2.3) mg/dL AST (17-59) U/L ALT (4-49) U/L Total Protein (6.3-8.2) g/dL Albumin (3.5-5.0) g/dL Crossmatch 03/23/20 03/23/20 03/24/20 Range/Units 22:11 23:01 00:01 WBC (3.8-10.6) k/uL Hgb (13.0-17.5) gm/dL Hct (39.0-53.0) % Plt Count (150-450) k/uL Neutrophils # (1.3-7.7) k/uL Lymphocytes # (1.0-4.8) k/uL Monocytes # (0-1.0) k/uL APTT (22.0-30.0) sec ABG pH (7.35-7.45) ABG pCO2 (35-45) mmHg ABG pO2 (83-108) mmHg ABG HCO3 (21-25) mmol/L ABG Total CO2 (19-24) mmol/L ABG O2 Saturation (94-97) % Sodium (137-145) mmol/L Glucose (74-99) mg/dL POC Glucose (mg/dL) 120 H 121 H 120 H (75-99) mg/dL Magnesium (1.6-2.3) mg/dL AST (17-59) U/L ALT (4-49) U/L Total Protein (6.3-8.2) g/dL Albumin (3.5-5.0) g/dL Crossmatch 03/24/20 03/24/20 03/24/20 Range/Units 01:03 01:59 03:02 WBC (3.8-10.6) k/uL Hgb (13.0-17.5) gm/dL Hct (39.0-53.0) % Plt Count (150-450) k/uL Neutrophils # (1.3-7.7) k/uL Lymphocytes # (1.0-4.8) k/uL Monocytes # (0-1.0) k/uL APTT (22.0-30.0) sec ABG pH (7.35-7.45) ABG pCO2 (35-45) mmHg ABG pO2 (83-108) mmHg ABG HCO3 (21-25) mmol/L ABG Total CO2 (19-24) mmol/L ABG O2 Saturation (94-97) % Sodium (137-145) mmol/L Glucose (74-99) mg/dL POC Glucose (mg/dL) 121 H 121 H 119 H (75-99) mg/dL Magnesium (1.6-2.3) mg/dL AST (17-59) U/L ALT (4-49) U/L Total Protein (6.3-8.2) g/dL Albumin (3.5-5.0) g/dL Crossmatch 03/24/20 03/24/20 03/24/20 Range/Units 03:57 03:57 03:57 WBC 11.8 H (3.8-10.6) k/uL Hgb 12.4 L (13.0-17.5) gm/dL Hct 37.7 L (39.0-53.0) % Plt Count 145 L (150-450) k/uL Neutrophils # 9.5 H (1.3-7.7) k/uL Lymphocytes # 0.8 L (1.0-4.8) k/uL Monocytes # 1.1 H (0-1.0) k/uL APTT (22.0-30.0) sec ABG pH (7.35-7.45) ABG pCO2 (35-45) mmHg ABG pO2 (83-108) mmHg ABG HCO3 (21-25) mmol/L ABG Total CO2 (19-24) mmol/L ABG O2 Saturation (94-97) % Sodium 134 L (137-145) mmol/L Glucose 121 H (74-99) mg/dL POC Glucose (mg/dL) 123 H (75-99) mg/dL Magnesium (1.6-2.3) mg/dL AST 103 H (17-59) U/L ALT 75 H (4-49) U/L Total Protein 5.4 L (6.3-8.2) g/dL Albumin 3.3 L (3.5-5.0) g/dL Crossmatch 03/24/20 03/24/20 03/24/20 Range/Units 05:04 07:01 08:13 WBC (3.8-10.6) k/uL Hgb (13.0-17.5) gm/dL Hct (39.0-53.0) % Plt Count (150-450) k/uL Neutrophils # (1.3-7.7) k/uL Lymphocytes # (1.0-4.8) k/uL Monocytes # (0-1.0) k/uL APTT (22.0-30.0) sec ABG pH (7.35-7.45) ABG pCO2 (35-45) mmHg ABG pO2 (83-108) mmHg ABG HCO3 (21-25) mmol/L ABG Total CO2 (19-24) mmol/L ABG O2 Saturation (94-97) % Sodium (137-145) mmol/L Glucose (74-99) mg/dL POC Glucose (mg/dL) 120 H 130 H 128 H (75-99) mg/dL Magnesium (1.6-2.3) mg/dL AST (17-59) U/L ALT (4-49) U/L Total Protein (6.3-8.2) g/dL Albumin (3.5-5.0) g/dL Crossmatch 03/24/20 03/24/20 03/24/20 Range/Units 08:50 10:13 10:56 WBC (3.8-10.6) k/uL Hgb (13.0-17.5) gm/dL Hct (39.0-53.0) % Plt Count (150-450) k/uL Neutrophils # (1.3-7.7) k/uL Lymphocytes # (1.0-4.8) k/uL Monocytes # (0-1.0) k/uL APTT (22.0-30.0) sec ABG pH (7.35-7.45) ABG pCO2 (35-45) mmHg ABG pO2 (83-108) mmHg ABG HCO3 (21-25) mmol/L ABG Total CO2 (19-24) mmol/L ABG O2 Saturation (94-97) % Sodium (137-145) mmol/L Glucose (74-99) mg/dL POC Glucose (mg/dL) 135 H 128 H 128 H (75-99) mg/dL Magnesium (1.6-2.3) mg/dL AST (17-59) U/L ALT (4-49) U/L Total Protein (6.3-8.2) g/dL Albumin (3.5-5.0) g/dL Crossmatch 03/24/20 03/24/20 Range/Units 12:10 13:16 WBC (3.8-10.6) k/uL Hgb (13.0-17.5) gm/dL Hct (39.0-53.0) % Plt Count (150-450) k/uL Neutrophils # (1.3-7.7) k/uL Lymphocytes # (1.0-4.8) k/uL Monocytes # (0-1.0) k/uL APTT (22.0-30.0) sec ABG pH (7.35-7.45) ABG pCO2 (35-45) mmHg ABG pO2 (83-108) mmHg ABG HCO3 (21-25) mmol/L ABG Total CO2 (19-24) mmol/L ABG O2 Saturation (94-97) % Sodium (137-145) mmol/L Glucose (74-99) mg/dL POC Glucose (mg/dL) 122 H 123 H (75-99) mg/dL Magnesium (1.6-2.3) mg/dL AST (17-59) U/L ALT (4-49) U/L Total Protein (6.3-8.2) g/dL Albumin (3.5-5.0) g/dL Crossmatch Assessment and Plan Assessment: Impression: Status post four-vessel CABG. Postoperative day #1. Lifelong nonsmoker. Family history of premature coronary artery disease. Dyslipidemia. Recommendation: Continue beta april statin Plavix and aspirin. Increase activity as tolerated. Continue GI and DVT prophylaxis. Discontinue unnecessary catheters Continue insulin as per protocol. Continue pain management. Continue incentive spirometry. Discontinue Wolfe catheter in the next 24 hours. We'll follow. Time with Patient: Less than 30
[2020-03-24 14:12] LABS: Glucose,Whole Blood 116 mg/dL (75-99)
[2020-03-24 15:23] LABS: Glucose,Whole Blood 116 mg/dL (75-99)
[2020-03-24] MEDS: METOPROLOL TARTRATE 25 MG TAB PO SCH ×2 (16:09→20:26)
[2020-03-24] MEDS: LACTATED RINGERS 1,000 ML IV SCH (16:10)
[2020-03-24 16:19] LABS: Glucose,Whole Blood 112 mg/dL (75-99)
[2020-03-24 16:59] LABS: Glucose,Whole Blood 129 mg/dL (75-99)
[2020-03-24 18:11] LABS: Glucose,Whole Blood 117 mg/dL (75-99)
[2020-03-24 19:10] LABS: Glucose,Whole Blood 114 mg/dL (75-99)
--- NOTE | 2020-03-24 19:43 | P.CONS ---
History of Present Illness - History of Present Illness This is this is a pleasant 60 years old male with past medical history of hyp erlipidemia, GERD. Presented on 03/18. Patient was complaining of from chest pain and dyspnea, he underwent cardiac cath by Dr. Dr. Bush showing severe triple vessel coronary artery disease. He underwent extensive workup by cardiothoracic surgery. His status post coronary artery bypass grafting of 4 vessels on 03/23. Patient remains in the ICU for close monitoring and management. Medical consult has been requested for medical management today. Patient sitting in bed comfortable. Not In distress, he has pain at the chest surgical site was some stomach upset, no nausea vomiting, he is eating little bit. He is hemodynamically stable. Labs reviewed His currently on small dose of insulin drip at 1 unit per hour. Also his on Cardizem drip. He has mild leukocytosis of 11.8 K. Hemoglobin 12.4. Platelets 145K. Glucose is controlled. BMP and liver enzymes were unremarkable. UA is negative. FOBT is negative. Hepatitis panel is negative. Rotavirus is not detected. Chest x-ray: Postoperative changes of CABG. CT of the chest no acute process. Carotid Doppler is negative for significant stenosis. Echocardiogram showing ejection fraction between 55 and 60%, no significant valvular heart disease. Review of Systems CONSTITUTIONAL: No fever, no malaise, no fatigue. HEENT: No recent visual problems or hearing problems. Denied any sore throat. CARDIOVASCULAR: No orthopnea, PND, no palpitations, no syncope. PULMONARY: No shortness of breath, no cough, no hemoptysis. GASTROINTESTINAL: No diarrhea, no vomiting, Normoactive bowel sounds. NEUROLOGICAL: No headaches, no weakness, no numbness. HEMATOLOGICAL: Denies any bleeding or petechiae. GENITOURINARY: Denies any burning micturition, frequency, or urgency. MUSCULOSKELETAL/RHEUMATOLOGICAL: Denies any joint pain, swelling, or any muscle pain. ENDOCRINE: Denies any polyuria or polydipsia. Past Medical History Past Medical History: Cancer, Chest Pain / Angina, GERD/Reflux, Hyperlipidemia, Prostate Disorder Additional Past Medical History / Comment(s): SOB w/exertion & chest pain for a few months, skin cancer History of Any Multi-Drug Resistant Organisms: None Reported Past Surgical History: Cholecystectomy, Orthopedic Surgery Additional Past Surgical History / Comment(s): arthroscopy knee Past Anesthesia/Blood Transfusion Reactions: No Reported Reaction Past Psychological History: No Psychological Hx Reported Smoking Status: Never smoker Past Alcohol Use History: Occasional Past Drug Use History: None Reported - Past Family History Mother Family Medical History: CVA/TIA Father Family Medical History: Cancer Additional Family Medical History / Comment(s): colon cancer. Medications and Allergies Home Medications Medication Instructions Recorded Confirmed Type Ascorbic Acid [Vitamin C] 500 mg PO DAILY 03/17/20 03/17/20 History Aspirin 81 mg PO DAILY 03/17/20 03/18/20 History Atorvastatin [Lipitor] 10 mg PO HS 03/17/20 03/18/20 History Cholecalciferol [Vitamin D3 (25 5,000 unit PO DAILY 03/17/20 03/18/20 History Mcg = 1000 Iu)] Famotidine [Pepcid] 20 mg PO BID 03/17/20 03/18/20 History Metoprolol Tartrate [Lopressor] 25 mg PO BID 03/17/20 03/18/20 History [place]-3 Fatty Acids/Fish Oil [Fish 1 each PO DAILY 03/17/20 03/18/20 History Oil 1,000 mg Softgel] Tamsulosin HCl [Flomax] 0.4 mg PO HS 03/17/20 03/18/20 History Ubidecarenone [Co Q-10] 100 mg PO DAILY 03/17/20 03/18/20 History Allergies Allergy/AdvReac Type Severity Reaction Status Date / Time Sulfa (Sulfonamide Allergy Unknown Verified 03/18/20 09:59 Antibiotics) sulfamethoxazole Allergy Unknown Verified 03/18/20 09:59 [From Bactrim] trimethoprim [From Bactrim] Allergy Unknown Verified 03/18/20 09:59 Physical Exam Vitals: Vital Signs Pulse Resp BP Pulse Ox 03/24/20 09:30 79 20 96 03/24/20 09:00 77 19 96 03/24/20 08:32 81 03/24/20 08:30 81 24 99 03/24/20 08:21 85 97 03/24/20 08:00 82 41 H 129/63 96 03/24/20 07:30 84 7 L 129/63 95 03/24/20 07:00 86 22 95 03/24/20 06:30 93 23 94 L 03/24/20 06:00 81 22 96 03/24/20 05:30 80 22 96 03/24/20 05:00 83 20 97 03/24/20 04:30 75 16 129/63 96 03/24/20 04:00 78 19 96 03/24/20 03:30 74 17 97 03/24/20 03:00 80 19 97 03/24/20 02:30 76 18 97 03/24/20 02:00 72 13 97 03/24/20 01:30 73 16 97 03/24/20 01:00 71 16 121/65 97 03/24/20 00:30 78 20 97 03/24/20 00:00 75 20 97 03/23/20 23:30 79 20 97 03/23/20 23:00 75 20 97 03/23/20 22:30 71 17 97 03/23/20 22:00 75 22 96 03/23/20 21:30 77 22 97 03/23/20 21:00 70 22 97 03/23/20 20:45 78 21 95 03/23/20 20:30 72 21 97 03/23/20 20:15 72 20 96 03/23/20 20:00 69 17 96 03/23/20 19:45 76 24 97 03/23/20 19:30 71 21 98 03/23/20 19:15 69 19 98 03/23/20 19:00 71 17 100 03/23/20 18:45 66 20 100 03/23/20 18:30 65 20 100 03/23/20 18:15 58 L 20 99 03/23/20 18:00 58 L 19 93 L 03/23/20 17:45 76 19 95 03/23/20 17:30 79 23 95 03/23/20 17:15 77 18 95 03/23/20 17:00 76 14 94 L 03/23/20 16:45 75 16 97 03/23/20 16:30 79 25 H 93 L 03/23/20 16:15 78 12 94 L 03/23/20 16:12 78 03/23/20 16:02 78 03/23/20 16:00 75 18 95 03/23/20 15:45 63 17 100 03/23/20 15:30 60 14 100 03/23/20 15:15 60 17 100 03/23/20 15:00 60 14 100 Intake and Output 03/23/20 03/24/20 03/24/20 22:59 06:59 14:59 Intake Total 7672.620 0840.0 253.5 Output Total 1286 671 179 Balance -154.269 593.0 74.5 Intake: IV 1014.0 1134.0 253.5 ACETAMINOPHEN IV (For NPO 100 100 ) 1,000 mg In Empty Bag 1 bag @ 400 mls/hr IVPB Q6HR RERE Rx#:[id number] Albumin Human 5% 250 ml 250 250 In Empty Bag 1 bag @ 250 mls/hr IVPB Q1HR PRN Rx#: [id number] CO/CI injectate 90 210 60 Diltiazem 125 mg In 40 40 15 Sodium Chloride 0.9% 100 ml @ 5 MG/HR 5 mls/hr IV .Q24H RERE Rx#:[id number] Lactated Ringers 1,000 ml 400 400 150 @ 50 mls/hr IV .Q20H RERE Rx#:[id number] Nitroglycerin-D5w Pmx 50 12.0 12.0 1.5 mg In Dextrose/Water 1 250ml.bag @ 5 MCG/MIN 1.5 mls/hr IV .Q24H RERE Rx#: [id number] Pressure Bag 72 72 27 ceFAZolin 2 gm In Sodium 50 50 Chloride 0.9% 30 ml @ 60 mls/hr IVPB ONCE ONE Rx#: [id number] Intake, IV Titration 117.731 Amount Clevidipine Butyrate 25 67.066 mg In Empty Bag 1 bag @ 1 MG/HR 2 mls/hr IV .Q24H RERE Rx#:[id number] Dexmedetomidine/0.9% NaCl 2.368 (Pmx) 400 mcg In Empty Bag 1 bag @ Titrate IV . Q0M RERE Rx#:[id number] propofoL 1,000 mg In 48.297 Empty Bag 1 bag @ Titrate IV .Q0M RERE Rx#: [id number] Oral 130 Output: Chest Tube Drainage 316 201 80 Left/Right Pleural 96 71 40 Mediastinal 220 130 40 Drainage 15 Left Wrist 15 Urine 970 470 84 Other: Voiding Method Indwelling Catheter Indwelling Catheter Indwelling Catheter Weight 102.2 kg ABP, PAP, CO, CI - Last 8 Hours Arterial Blood Pressure 146/47 Arterial Blood Pressure 139/46 Arterial Blood Pressure 148/52 Arterial Blood Pressure 144/56 Arterial Blood Pressure 150/59 Arterial Blood Pressure 124/54 Arterial Blood Pressure 119/61 Arterial Blood Pressure 136/50 Arterial Blood Pressure 147/52 Arterial Blood Pressure 153/53 Arterial Blood Pressure 135/48 Arterial Blood Pressure 136/50 Arterial Blood Pressure 134/50 Arterial Blood Pressure 131/50 Arterial Blood Pressure 141/52 Pulmonary Artery Pressure 14/7 Pulmonary Artery Pressure 17/4 Pulmonary Artery Pressure 20/4 Pulmonary Artery Pressure 24/10 Pulmonary Artery Pressure 27/12 Pulmonary Artery Pressure 23/11 Pulmonary Artery Pressure 44/15 Pulmonary Artery Pressure 28/13 Pulmonary Artery Pressure 30/12 Pulmonary Artery Pressure 27/10 Pulmonary Artery Pressure 27/11 Pulmonary Artery Pressure 28/12 Pulmonary Artery Pressure 29/13 Pulmonary Artery Pressure 30/12 Cardiac Output 7 Cardiac Output 7 Cardiac Output 7 Cardiac Output 7 Cardiac Output 6.4 Cardiac Output 6.4 Cardiac Output 7.5 Cardiac Output 8.1 Cardiac Output 7.3 Cardiac Index 3.2 Cardiac Index 3.2 Cardiac Index 3.2 Cardiac Index 3.2 Cardiac Index 2.9 Cardiac Index 2.9 Cardiac Index 3.4 Cardiac Index 3.7 Cardiac Index 3.3 GENERAL: The patient is alert and oriented x3, not in any acute distress. Well developed, well nourished. HEENT: Pupils are round and equally reacting to light. EOMI. No scleral icterus. No conjunctival pallor. Normocephalic, atraumatic. No pharyngeal erythema. No thyromegaly. -CARDIOVASCULAR: S1 and S2 present. No murmurs, rubs, or gallops. Surgical wound with a dressing in place, rest of exam is deferred to surgical team PULMONARY: Chest is clear to auscultation, no wheezing or crackles. ABDOMEN: Soft, nontender, nondistended, normoactive bowel sounds. No palpable organomegaly. MUSCULOSKELETAL: No joint swelling or deformity. EXTREMITIES: No cyanosis, clubbing, or pedal edema. NEUROLOGICAL: Gross neurological examination did not reveal any focal deficits. SKIN: No rashes. No petechiae Results CBC & Chem 7: 03/24/20 03:57 03/24/20 03:57 Labs: Abnormal Lab Results - Last 24 Hours (Table) 03/22/20 03/23/20 03/23/20 Range/Units 08:11 14:57 14:58 WBC 12.2 H (3.8-10.6) k/uL Hgb (13.0-17.5) gm/dL Hct 38.6 L (39.0-53.0) % Plt Count 141 L (150-450) k/uL Neutrophils # 9.9 H (1.3-7.7) k/uL Lymphocytes # (1.0-4.8) k/uL Monocytes # (0-1.0) k/uL APTT (22.0-30.0) sec ABG pH (7.35-7.45) ABG pCO2 (35-45) mmHg ABG pO2 (83-108) mmHg ABG HCO3 (21-25) mmol/L ABG Total CO2 (19-24) mmol/L ABG O2 Saturation (94-97) % Sodium (137-145) mmol/L Glucose (74-99) mg/dL POC Glucose (mg/dL) 100 H (75-99) mg/dL Magnesium (1.6-2.3) mg/dL AST (17-59) U/L ALT (4-49) U/L Total Protein (6.3-8.2) g/dL Albumin (3.5-5.0) g/dL Crossmatch See Detail 03/23/20 03/23/20 03/23/20 Range/Units 14:58 14:58 15:43 WBC (3.8-10.6) k/uL Hgb (13.0-17.5) gm/dL Hct (39.0-53.0) % Plt Count (150-450) k/uL Neutrophils # (1.3-7.7) k/uL Lymphocytes # (1.0-4.8) k/uL Monocytes # (0-1.0) k/uL APTT 32.6 H (22.0-30.0) sec ABG pH 7.29 L (7.35-7.45) ABG pCO2 56 H (35-45) mmHg ABG pO2 123 H (83-108) mmHg ABG HCO3 27 H (21-25) mmol/L ABG Total CO2 29 H (19-24) mmol/L ABG O2 Saturation 97.7 H (94-97) % Sodium 135 L (137-145) mmol/L Glucose 106 H (74-99) mg/dL POC Glucose (mg/dL) (75-99) mg/dL Magnesium 2.8 H (1.6-2.3) mg/dL AST 127 H (17-59) U/L ALT 86 H (4-49) U/L Total Protein 4.8 L (6.3-8.2) g/dL Albumin 2.7 L (3.5-5.0) g/dL Crossmatch 03/23/20 03/23/20 03/23/20 Range/Units 16:06 17:11 18:20 WBC 12.6 H (3.8-10.6) k/uL Hgb (13.0-17.5) gm/dL Hct (39.0-53.0) % Plt Count (150-450) k/uL Neutrophils # 10.6 H (1.3-7.7) k/uL Lymphocytes # 0.6 L (1.0-4.8) k/uL Monocytes # 1.1 H (0-1.0) k/uL APTT (22.0-30.0) sec ABG pH (7.35-7.45) ABG pCO2 (35-45) mmHg ABG pO2 (83-108) mmHg ABG HCO3 (21-25) mmol/L ABG Total CO2 (19-24) mmol/L ABG O2 Saturation (94-97) % Sodium (137-145) mmol/L Glucose (74-99) mg/dL POC Glucose (mg/dL) 105 H 123 H (75-99) mg/dL Magnesium (1.6-2.3) mg/dL AST (17-59) U/L ALT (4-49) U/L Total Protein (6.3-8.2) g/dL Albumin (3.5-5.0) g/dL Crossmatch 03/23/20 03/23/20 03/23/20 Range/Units 18:24 19:01 19:33 WBC (3.8-10.6) k/uL Hgb (13.0-17.5) gm/dL Hct (39.0-53.0) % Plt Count (150-450) k/uL Neutrophils # (1.3-7.7) k/uL Lymphocytes # (1.0-4.8) k/uL Monocytes # (0-1.0) k/uL APTT (22.0-30.0) sec ABG pH (7.35-7.45) ABG pCO2 (35-45) mmHg ABG pO2 (83-108) mmHg ABG HCO3 (21-25) mmol/L ABG Total CO2 27 H (19-24) mmol/L ABG O2 Saturation 97.4 H (94-97) % Sodium (137-145) mmol/L Glucose (74-99) mg/dL POC Glucose (mg/dL) 134 H 126 H (75-99) mg/dL Magnesium (1.6-2.3) mg/dL AST (17-59) U/L ALT (4-49) U/L Total Protein (6.3-8.2) g/dL Albumin (3.5-5.0) g/dL Crossmatch 03/23/20 03/23/20 03/23/20 Range/Units 20:08 20:57 20:57 WBC 13.0 H (3.8-10.6) k/uL Hgb (13.0-17.5) gm/dL Hct (39.0-53.0) % Plt Count (150-450) k/uL Neutrophils # 11.2 H (1.3-7.7) k/uL Lymphocytes # 0.6 L (1.0-4.8) k/uL Monocytes # (0-1.0) k/uL APTT (22.0-30.0) sec ABG pH (7.35-7.45) ABG pCO2 (35-45) mmHg ABG pO2 (83-108) mmHg ABG HCO3 (21-25) mmol/L ABG Total CO2 (19-24) mmol/L ABG O2 Saturation (94-97) % Sodium (137-145) mmol/L Glucose (74-99) mg/dL POC Glucose (mg/dL) 113 H 119 H (75-99) mg/dL Magnesium (1.6-2.3) mg/dL AST (17-59) U/L ALT (4-49) U/L Total Protein (6.3-8.2) g/dL Albumin (3.5-5.0) g/dL Crossmatch 03/23/20 03/23/20 03/24/20 Range/Units 22:11 23:01 00:01 WBC (3.8-10.6) k/uL Hgb (13.0-17.5) gm/dL Hct (39.0-53.0) % Plt Count (150-450) k/uL Neutrophils # (1.3-7.7) k/uL Lymphocytes # (1.0-4.8) k/uL Monocytes # (0-1.0) k/uL APTT (22.0-30.0) sec ABG pH (7.35-7.45) ABG pCO2 (35-45) mmHg ABG pO2 (83-108) mmHg ABG HCO3 (21-25) mmol/L ABG Total CO2 (19-24) mmol/L ABG O2 Saturation (94-97) % Sodium (137-145) mmol/L Glucose (74-99) mg/dL POC Glucose (mg/dL) 120 H 121 H 120 H (75-99) mg/dL Magnesium (1.6-2.3) mg/dL AST (17-59) U/L ALT (4-49) U/L Total Protein (6.3-8.2) g/dL Albumin (3.5-5.0) g/dL Crossmatch 03/24/20 03/24/20 03/24/20 Range/Units 01:03 01:59 03:02 WBC (3.8-10.6) k/uL Hgb (13.0-17.5) gm/dL Hct (39.0-53.0) % Plt Count (150-450) k/uL Neutrophils # (1.3-7.7) k/uL Lymphocytes # (1.0-4.8) k/uL Monocytes # (0-1.0) k/uL APTT (22.0-30.0) sec ABG pH (7.35-7.45) ABG pCO2 (35-45) mmHg ABG pO2 (83-108) mmHg ABG HCO3 (21-25) mmol/L ABG Total CO2 (19-24) mmol/L ABG O2 Saturation (94-97) % Sodium (137-145) mmol/L Glucose (74-99) mg/dL POC Glucose (mg/dL) 121 H 121 H 119 H (75-99) mg/dL Magnesium (1.6-2.3) mg/dL AST (17-59) U/L ALT (4-49) U/L Total Protein (6.3-8.2) g/dL Albumin (3.5-5.0) g/dL Crossmatch 03/24/20 03/24/20 03/24/20 Range/Units 03:57 03:57 03:57 WBC 11.8 H (3.8-10.6) k/uL Hgb 12.4 L (13.0-17.5) gm/dL Hct 37.7 L (39.0-53.0) % Plt Count 145 L (150-450) k/uL Neutrophils # 9.5 H (1.3-7.7) k/uL Lymphocytes # 0.8 L (1.0-4.8) k/uL Monocytes # 1.1 H (0-1.0) k/uL APTT (22.0-30.0) sec ABG pH (7.35-7.45) ABG pCO2 (35-45) mmHg ABG pO2 (83-108) mmHg ABG HCO3 (21-25) mmol/L ABG Total CO2 (19-24) mmol/L ABG O2 Saturation (94-97) % Sodium 134 L (137-145) mmol/L Glucose 121 H (74-99) mg/dL POC Glucose (mg/dL) 123 H (75-99) mg/dL Magnesium (1.6-2.3) mg/dL AST 103 H (17-59) U/L ALT 75 H (4-49) U/L Total Protein 5.4 L (6.3-8.2) g/dL Albumin 3.3 L (3.5-5.0) g/dL Crossmatch 03/24/20 03/24/20 03/24/20 Range/Units 05:04 07:01 08:13 WBC (3.8-10.6) k/uL Hgb (13.0-17.5) gm/dL Hct (39.0-53.0) % Plt Count (150-450) k/uL Neutrophils # (1.3-7.7) k/uL Lymphocytes # (1.0-4.8) k/uL Monocytes # (0-1.0) k/uL APTT (22.0-30.0) sec ABG pH (7.35-7.45) ABG pCO2 (35-45) mmHg ABG pO2 (83-108) mmHg ABG HCO3 (21-25) mmol/L ABG Total CO2 (19-24) mmol/L ABG O2 Saturation (94-97) % Sodium (137-145) mmol/L Glucose (74-99) mg/dL POC Glucose (mg/dL) 120 H 130 H 128 H (75-99) mg/dL Magnesium (1.6-2.3) mg/dL AST (17-59) U/L ALT (4-49) U/L Total Protein (6.3-8.2) g/dL Albumin (3.5-5.0) g/dL Crossmatch 03/24/20 Range/Units 08:50 WBC (3.8-10.6) k/uL Hgb (13.0-17.5) gm/dL Hct (39.0-53.0) % Plt Count (150-450) k/uL Neutrophils # (1.3-7.7) k/uL Lymphocytes # (1.0-4.8) k/uL Monocytes # (0-1.0) k/uL APTT (22.0-30.0) sec ABG pH (7.35-7.45) ABG pCO2 (35-45) mmHg ABG pO2 (83-108) mmHg ABG HCO3 (21-25) mmol/L ABG Total CO2 (19-24) mmol/L ABG O2 Saturation (94-97) % Sodium (137-145) mmol/L Glucose (74-99) mg/dL POC Glucose (mg/dL) 135 H (75-99) mg/dL Magnesium (1.6-2.3) mg/dL AST (17-59) U/L ALT (4-49) U/L Total Protein (6.3-8.2) g/dL Albumin (3.5-5.0) g/dL Crossmatch Assessment and Plan Assessment: Severe triple vessel coronary artery disease status post CABG Hyperlipidemia Prediabetes with hemoglobin A1c 6.2% Plan: This is a pleasant 60 years old male STATUS post CABG. Continue with pain management. Continue with incentive spirometry. Labs and medication were reviewed.. Continue same treatment. Continue with symptomatic treatment. Resume home medication. Monitor lytes and vitals. DVT and GI prophylaxis. Further recommendations of the clinical course of the patient DVT prophylaxis: Subcutaneous heparin GI Prophylaxis: Ppi
[2020-03-24 20:18] LABS: Glucose,Whole Blood 112 mg/dL (75-99)
[2020-03-24] MEDS: TAMSULOSIN 0.4 MG CAP.ER.24H PO SCH (20:25)
[2020-03-24] MEDS: SENNOSIDES-DOCUSATE SODIUM 1 EACH TAB PO SCH (20:26)
[2020-03-24 21:19] LABS: Glucose,Whole Blood 112 mg/dL (75-99)
[2020-03-24] MEDS: MELATONIN 5 MG TABLET PO SCH (21:23)
[2020-03-24] MEDS: TRIAMCINOLONE ACET 0.1% ORAL PASTE 5 GM TUBE MUCOUS MEM SCH (22:08)
[2020-03-24 23:15] LABS: Glucose,Whole Blood 97 mg/dL (75-99)
[2020-03-25 00:05] LABS: Glucose,Whole Blood 100 mg/dL (75-99)
[2020-03-25 01:04] LABS: Glucose,Whole Blood 108 mg/dL (75-99)
[2020-03-25] MEDS ORDERED: TEMAZEPAM 15 MG CAP PO ONE (01:05)
[2020-03-25 03:02] LABS: Glucose,Whole Blood 114 mg/dL (75-99)
[2020-03-25 04:02] LABS: Glucose,Whole Blood 118 mg/dL (75-99)
[2020-03-25 04:15] LABS: Basophils % (A) 0 %; Eosinophils # (A) 0.1 k/uL (0-0.7); Eosinophils % (A) 1 %; HCT 33.4 % (39.0-53.0); HGB 10.8 gm/dL (13.0-17.5); Lymphocytes # (A) 1.3 k/uL (1.0-4.8); Lymphocytes % (A) 14 %; MCH 28.4 pg (25.0-35.0); MCHC 32.4 g/dL (31.0-37.0); MCV 87.6 fL (80.0-100.0); Mean Platelet Volume 7.6; Monocytes # (A) 0.9 k/uL (0-1.0); Monocytes % (A) 9 %; Neutrophils # (A) 7.2 k/uL (1.3-7.7); Neutrophils % (A) 72 %; Platelet Count 111 k/uL (150-450); RBC 3.82 m/uL (4.30-5.90); RDW 13.3 % (11.5-15.5)
[2020-03-25 04:32] LABS: Ionized Calcium 5.1 mg/dL (4.5-5.3)
[2020-03-25 04:47] LABS: ALT 46 U/L (4-49); AST 62 U/L (17-59); African American GFR (CKD) >90 (>60 ml/min/1.73 sqM); Alkaline Phosphatase 33 U/L (38-126); Anion Gap 3 mmol/L; Blood Urea Nitrogen 13 mg/dL (9-20); Calcium 8.6 mg/dL (8.4-10.2); Carbon Dioxide 26 mmol/L (22-30); Chloride 103 mmol/L (98-107); Glucose 118 mg/dL (74-99); Non-African American GFR(CKD) >90 (>60 ml/min/1.73 sqM); Potassium 4.5 mmol/L (3.5-5.1); Sodium 132 mmol/L (137-145); Total Bilirubin 0.9 mg/dL (0.2-1.3); Total Protein 5.1 g/dL (6.3-8.2)
[2020-03-25 05:02] LABS: Glucose,Whole Blood 100 mg/dL (75-99)
[2020-03-25] MEDS: KETOROLAC 15 MG/ML 1 ML VIAL IVP SCH ×4 (05:12→23:48)
[2020-03-25 06:02] LABS: Glucose,Whole Blood 102 mg/dL (75-99)
[2020-03-25] MEDS: PANTOPRAZOLE 40 MG TABLET PO SCH (06:38)
[2020-03-25] MEDS: HYDROcodone/APAP 5-325MG 1 EACH TAB PO PRN (06:46)
[2020-03-25 07:13] LABS: Glucose,Whole Blood 101 mg/dL (75-99)
[2020-03-25] MEDS: IPRATROPIUM-ALBUTEROL 3 ML NEB INHALATION SCH ×4 (07:35→19:18)
--- NOTE | 2020-03-25 07:46 | XR ---
EXAMINATION TYPE: XR chest 1V portable DATE OF EXAM: 03/25/2020 Comparison: 03/24/2020 Clinical History: 60-year-old male Post Operative Cardiac Surgery Findings: Median sternotomy wires are present with mediastinal drain. Heart mildly enlarged. Mild diffuse inter stitial density slightly increased. Patchy left mid and lower lung opacity slightly increased. Remova l of right IJ Page-Dana catheter. Bilateral chest tubes remain in place. No appreciable pneumothorax. Impression: 1. Increasing interstitial density. Correlate for possible developing pulmonary vascular congestion. 2. Increasing left mid and lower lung opacity, probably atelectasis. Attention on follow-up.
[2020-03-25] MEDS: HEPARIN SODIUM,PORCINE 5,000 UNIT/ML 1 ML VIAL SQ SCH ×3 (07:56→23:48)
[2020-03-25] MEDS: ONDANSETRON 4 MG/2 ML VIAL IVP PRN (07:56)
[2020-03-25] MEDS: CLOPIDOGREL 75 MG TAB PO SCH (08:01)
[2020-03-25] MEDS: ASCORBIC ACID 500 MG TAB PO SCH (08:01)
[2020-03-25] MEDS: ASPIRIN 325 MG TAB PO SCH (08:01)
[2020-03-25] MEDS: METOPROLOL TARTRATE 25 MG TAB PO SCH ×3 (08:01→20:15)
[2020-03-25] MEDS: amLODIPine 5 MG TAB PO SCH (08:02)
[2020-03-25] MEDS: LACTATED RINGERS 1,000 ML IV SCH (08:02)
[2020-03-25] MEDS: ATORVASTATIN 40 MG TAB PO SCH (08:02)
--- NOTE | 2020-03-25 09:04 | P.PN ---
Subjective Progress Note Date: 03/25/20 Principal diagnosis: Coronary artery disease. Previous medical history of hyperlipidemia, BPH, lifelong nonsmoker, father with history of aortic aneurysm, both grandfathers diagnosed with heart disease in their early 50s POD #2 coronary artery bypass grafting 4 vessels, left internal mammary artery to the left anterior descending artery, left radial artery to the obtuse little inal artery, reverse saphenous vein graft to the diagonal artery, reverse saphenous vein graft to the posterior descending artery, endoscopic harvesting of the left greater saphenous vein, endoscopic harvesting of the left radial artery, ligation of the left atrial appendage using a 35 mm AtriClip, epi-aortic ultrasound, intraoperative transesophageal echocardiogram. The patient is sitting up in a recliner in the intensive care unit in no acute distress. States he did manage to get some sleep last night, states pain is much better controlled and he denies any shortness of breath. He was ambulatory in the hallway yesterday with physical therapy. Remains in normal sinus rhythm, hemodynamically stable on no inotropes or pressors. No new events overnight. Objective - Vital Signs Vital signs: Vital Signs Temp 99.4 F 03/25/20 04:00 Pulse 90 03/25/20 07:45 Resp 15 03/25/20 07:00 BP 126/66 03/25/20 07:00 Pulse Ox 99 03/25/20 07:35 Intake & Output 03/24/20 03/25/20 03/25/20 18:59 06:59 18:59 Intake Total 1235.365 697.394 36 Output Total 814 1010 100 Balance 421.365 -312.606 -64 Weight 103.2 kg Intake: IV 880.5 682 36 Albumin Human 5% 250 ml 250 250 In Empty Bag 1 bag @ 250 mls/hr IVPB Q1HR PRN Rx#: [id number] CO/CI injectate 60 Diltiazem 125 mg In 25 Sodium Chloride 0.9% 100 ml @ 5 MG/HR 5 mls/hr IV .Q24H [facility] Rx#:[id number] Lactated Ringers 1,000 ml 460 360 30 @ 20 mls/hr IV .Q24H [facility] Rx#:[id number] Nitroglycerin-D5w Pmx 50 1.5 mg In Dextrose/Water 1 250ml.bag @ 5 MCG/MIN 1.5 mls/hr IV .Q24H [facility] Rx#: [id number] Pressure Bag 84 72 6 Intake, IV Titration 4.865 15.394 Amount Insulin Regular 100 unit 4.865 15.394 In Sodium Chloride 0.9% 100 ml @ Per Protocol IV .Q0M [facility] Rx#:[id number] Oral 350 Output: Chest Tube Drainage 270 160 55 Left/Right Pleural 110 60 35 Mediastinal 160 100 20 Drainage 15 15 Left Wrist 15 15 Urine 529 835 45 Other: Voiding Method Indwelling Catheter Indwelling Catheter ABP, PAP, CO, CI - Last Documented Arterial Blood Pressure 123/47 Pulmonary Artery Pressure 33/10 Cardiac Output 7 Cardiac Index 3.2 - Constitutional General appearance: Present: cooperative, no acute distress - Respiratory Details: Lungs sounds diminished bilaterally. Respirations even, nonlabored. Currently on room air with oxygen saturation 92%. Able to achieve 750 mL on his incentive spirometry. Strong cough. Mediastinal chest tube present to continuous wall suction, 40 mL serosanguineous drainage overnight, 250 mL in the last 24 hours. Right/left pleural chest tubes present, 40 mL thin serosanguineous drainage overnight, 210 mL in the last 24 hours. No air leaks present. - Cardiovascular Details: S1, S2 present. Regular rate and rhythm, sinus rhythm on telemetry. Sternum stable. A/V epicardial pacemaker wires present, connected to generator, AAI mode with a backup rate 50 bpm. Palpable peripheral pulses bilaterally. No edema present. No calf pain or tenderness noted. Right internal jugular Cordis, right radial arterial line present. Heart hugger in place with patient attempting to demonstrate appropriate use. Antiembolism stockings, SCDs pre sent. - Gastrointestinal Gastrointestinal Comment(s): Abdomen soft, nontender, nondistended. Active bowel sounds present 4 quadrants. Tolerating diet. Positive flatus, negative bowel movement - Genitourinary Genitourinary Comment(s): Wolfe present draining clear, yellow urine. Output 35-150 mL/h overnight - Integumentary Integumentary Comment(s): Skin is warm and dry with evidence of good perfusion. Anterior chest incision well approximated and covered with dry intact dressing. Left radial artery harvest site well approximated, patient able to move all his fingers and [employer] consultant appropriately, good cap refill, denies numbness or tingling. Left lower extremity EVH site well approximated - Neurologic Neurologic: Present: CNII-XII intact - Musculoskeletal Musculoskeletal: Present: gait normal, strength equal bilaterally - Psychiatric Psychiatric: Present: A&O x's 3, appropriate affect, intact judgment & insight - Allied health notes Allied health notes reviewed: nursing - Labs CBC & Chem 7: 03/25/20 04:00 03/25/20 04:00 Labs: Abnormal Lab Results - Last 24 Hours (Table) 03/22/20 03/24/20 03/24/20 Range/Units 08:11 10:13 10:56 RBC (4.30-5.90) m/uL Hgb (13.0-17.5) gm/dL Hct (39.0-53.0) % Plt Count (150-450) k/uL Sodium (137-145) mmol/L Glucose (74-99) mg/dL POC Glucose (mg/dL) 128 H 128 H (75-99) mg/dL AST (17-59) U/L Alkaline Phosphatase (38-126) U/L Total Protein (6.3-8.2) g/dL Albumin (3.5-5.0) g/dL Crossmatch See Detail 03/24/20 03/24/20 03/24/20 Range/Units 12:10 13:16 14:10 RBC (4.30-5.90) m/uL Hgb (13.0-17.5) gm/dL Hct (39.0-53.0) % Plt Count (150-450) k/uL Sodium (137-145) mmol/L Glucose (74-99) mg/dL POC Glucose (mg/dL) 122 H 123 H 116 H (75-99) mg/dL AST (17-59) U/L Alkaline Phosphatase (38-126) U/L Total Protein (6.3-8.2) g/dL Albumin (3.5-5.0) g/dL Crossmatch 03/24/20 03/24/20 03/24/20 Range/Units 15:21 16:16 16:58 RBC (4.30-5.90) m/uL Hgb (13.0-17.5) gm/dL Hct (39.0-53.0) % Plt Count (150-450) k/uL Sodium (137-145) mmol/L Glucose (74-99) mg/dL POC Glucose (mg/dL) 116 H 112 H 129 H (75-99) mg/dL AST (17-59) U/L Alkaline Phosphatase (38-126) U/L Total Protein (6.3-8.2) g/dL Albumin (3.5-5.0) g/dL Crossmatch 03/24/20 03/24/20 03/24/20 Range/Units 18:09 19:09 20:17 RBC (4.30-5.90) m/uL Hgb (13.0-17.5) gm/dL Hct (39.0-53.0) % Plt Count (150-450) k/uL Sodium (137-145) mmol/L Glucose (74-99) mg/dL POC Glucose (mg/dL) 117 H 114 H 112 H (75-99) mg/dL AST (17-59) U/L Alkaline Phosphatase (38-126) U/L Total Protein (6.3-8.2) g/dL Albumin (3.5-5.0) g/dL Crossmatch 03/24/20 03/25/20 03/25/20 Range/Units 21:18 00:04 01:04 RBC (4.30-5.90) m/uL Hgb (13.0-17.5) gm/dL Hct (39.0-53.0) % Plt Count (150-450) k/uL Sodium (137-145) mmol/L Glucose (74-99) mg/dL POC Glucose (mg/dL) 112 H 100 H 108 H (75-99) mg/dL AST (17-59) U/L Alkaline Phosphatase (38-126) U/L Total Protein (6.3-8.2) g/dL Albumin (3.5-5.0) g/dL Crossmatch 03/25/20 03/25/20 03/25/20 Range/Units 03:01 04:00 04:00 RBC 3.82 L (4.30-5.90) m/uL Hgb 10.8 L (13.0-17.5) gm/dL Hct 33.4 L (39.0-53.0) % Plt Count 111 L (150-450) k/uL Sodium 132 L (137-145) mmol/L Glucose 118 H (74-99) mg/dL POC Glucose (mg/dL) 114 H (75-99) mg/dL AST 62 H (17-59) U/L Alkaline Phosphatase 33 L (38-126) U/L Total Protein 5.1 L (6.3-8.2) g/dL Albumin 3.0 L (3.5-5.0) g/dL Crossmatch 03/25/20 03/25/20 03/25/20 Range/Units 04:01 05:01 06:00 RBC (4.30-5.90) m/uL Hgb (13.0-17.5) gm/dL Hct (39.0-53.0) % Plt Count (150-450) k/uL Sodium (137-145) mmol/L Glucose (74-99) mg/dL POC Glucose (mg/dL) 118 H 100 H 102 H (75-99) mg/dL AST (17-59) U/L Alkaline Phosphatase (38-126) U/L Total Protein (6.3-8.2) g/dL Albumin (3.5-5.0) g/dL Crossmatch 03/25/20 Range/Units 07:11 RBC (4.30-5.90) m/uL Hgb (13.0-17.5) gm/dL Hct (39.0-53.0) % Plt Count (150-450) k/uL Sodium (137-145) mmol/L Glucose (74-99) mg/dL POC Glucose (mg/dL) 101 H (75-99) mg/dL AST (17-59) U/L Alkaline Phosphatase (38-126) U/L Total Protein (6.3-8.2) g/dL Albumin (3.5-5.0) g/dL Crossmatch - Imaging and Cardiology Chest x-ray: report reviewed, image reviewed Assessment and Plan Assessment: 1. Coronary artery disease, status post four-vessel CABG 2. Hyperlipidemia 3. BPH 4. Lifelong nonsmoker 5. Father with history of aortic aneurysm 6. Both grandfathers with coronary artery diagnosis in their early 50s Plan: 1. Continue aspirin, statin, Plavix, beta april therapy. Will increase beta april therapy as tolerated 2. Encourage continued incentive spirometry use. Bronchodilators per pulmonology 3. Increase activity, ambulate as tolerated. PT/OT/cardiac rehab consulted 4. Continue Norvasc for radial artery spasm. Do not discontinue CCB without d iscussing with cardiac surgery 5. Will monitor daily labs and x-rays. Electrolyte replacement per protocol. 6. GI/DVT prophylaxis 7. Pain control with current medication regimen 8. Insulin management per primary care services. Patient is not diabetic, hemoglobin A1c 6.2% 9. Will discontinue Cordis, arterial line, all chest tubes 10. Ground epicardial pacemaker wires 11. Discontinue Wolfe catheter. May bladder scan and straight cath for greater than [address] transfer orders for 3 S. cardiac stepdown unit, may transfer when bed available 13. Discharge planning in progress. Anticipate discharge to home with home care in 48-72 hours depending on patient's progress 14. More recommendations to follow Time with Patient: Greater than 30
[2020-03-25] MEDS: CHOLECALCIFEROL 1,000 UNIT TAB PO SCH (09:25)
[2020-03-25] MEDS ORDERED: ATROPINE SULFATE 0.1 MG/ML 10ML SYRINGE ONE (10:45)
--- NOTE | 2020-03-25 11:07 | PN ---
PROGRESS NOTE Mr. Lang is status post bypass surgery. Clinically, he is doing much better today. Pain is less. His breathing easier. He is able to do better on incentive spirometry. He is not on any pressors. Vitals are stable. JVD is not evident, S1-S2 heard normally, short systolic murmur noted. Lungs reveal improved air entry. Abdomen and lower extremity exam unchanged. Plan is to continue current medical regimen. Continue incentive spirometry and pulmonary toilet. MMODL / IJN: [id number] /
[2020-03-25 11:58] LABS: Glucose,Whole Blood 112 mg/dL (75-99)
[2020-03-25] MEDS: INSULIN ASPART (NovoLOG) 100 UNIT/ML VIAL SQ SCH ×3 (12:25→20:10)
--- NOTE | 2020-03-25 12:56 | P.PN ---
Subjective Progress Note Date: 03/25/20 Principal diagnosis: Status post CABG. Postoperative day #2 This is a very pleasant 60-year-old gentleman who follows with Dr. Medrano as his primary care provider. He has a history of hyperlipidemia. He had been developing exertional chest discomfort and a stress echocardiogram revealed anteroseptal and anterior apical hypokinesis. He was brought in yesterday for an elective cardiac catheterization and was found to have a 99% stenosis of the LAD, 94% stenosis of the circumflex and 70% stenosis of the proximal RCA, should be elevated with an area of 70-80%. Ejection fraction 55-60%. He has been seen and evaluated by cardiothoracic surgery and the plan is for coronary revascularization early next week. Currently he is seen in consultation on the selective care unit. He is awake and alert in no acute distress. Resting quite comfortably in bed. Denies any chest discomfort currently. No shortness of breath, cough or congestion. He is a lifelong nonsmoker. He is maintaining O2 saturations in the mid 90s on room air. Pulmonary function testing pending. He's afebrile. Hemodynamically stable. White count 9.5. Hemoglobin 14.8. Sodium 137. Potassium 4.4. Creatinine 0.92. Ashley virus not detected. He remains on a heparin drip. The patient is seen today 03/20/2020 in follow-up on the selective care unit. He is currently sitting up in a chair at the bedside. Awake and alert in no acute distress. Maintaining good O2 saturation 90s on room air. No shortness of breath, cough or congestion. No chest pain, palpitations lightheadedness or dizziness. He remains on heparin drip. Nitropaste in place. White count 8.9. Hemoglobin 15.2. Sodium 138. Potassium 4.3. Creatinine 0.92. The patient is seen today 03/21/2020 in follow-up on the selective care unit. He remains awake and alert in no acute distress. He remains on room air with good O2 saturations in the 90s. No chest discomfort currently. One brief episode of mild chest discomfort while ambulating yesterday. Computed tomography scan of the chest yesterday revealed no acute pulmonary process. White count 7.8. Hemoglobin 14.2. Sodium 138. Potassium 4.2. Creatinine 0.97 . He remains on heparin drip. On 03/22/2020 patient seen in follow-up on selective care unit, he is awake and alert, in no acute distress, resting comfortably in bed, breathing is comfortable, room air pulse ox of 98%, he states that times he'll have mild chest discomfort, otherwise no chest pain, afebrile, remains on heparin infusion, and 0.9 normal saline at a rate of 20 ML per hour, denies any difficulty breathing, chest CT was obtained on 03/19/2020 showing no acute pulmonary process. Today's labs have been reviewed, showing CBC within normal limits, electrolytes and renal profile within normal limits On 03/23/2020 patient is seen in intensive care unit, in the postoperative period, status post four-vessel coronary artery bypass grafting. He is sedated, intubated, on mechanical ventilator, on SIMV mode of ventilation, with a rate of 12, tidal blood 600, FiO2 is 100% and PEEP of 5, the rate was increased to 14 breaths per minute upon arrival to the ICU, postoperative blood gases pending, chest x-rays pending. Patient had left radial artery graft. Hemodynamically she is stable, did received Cell [employer] and the OR. Mediastinal chest tube with 15 mL of serosanguineous output, left and right pleural chest tubes are Y- connected together, with only 5 mL of sanguinous output. Left radial MELANIE drain with minimal amount of single vessel output, compressed and draining. No vaso pressors, point tenderness and a rate of 50 ML per hour, Cardizem infusion at 5 mg per hour, Diprivan infusion per protocol. Patient is being paced via epicardial AV wires, in AAI mode with a rate of 60 BPM, underlying rhythm is sinus bradycardia with a rate of 40 BPM. PA pressures 29/15, cardiac output is 5.1 and cardiac index is 2.3. Reevaluated today on 03/24/20, patient is status post CABG, postoperative day #1. He remains in the ICU, patient had a four-vessel CABG. He is on oxygen at 2 L 96% O2 saturation. He is also on Cardizem at 5 mg per hour. And IV fluid at 50 mL per hour. Insulin 1 unit per hour. His hemodynamics showed a pulmonary artery pressure 18/5 CVP of 2 cardiac output of 7 cardiac index of 3.2. Patient was extubated yesterday at 19:43, tolerated the extubation quite well. Chest x- ray showed mostly minimal postoperative atelectasis. No significant infiltrate or edema. Patient continues to have right internal jugular catheter and Cordis. And he has a right radial arterial line, left and right pleural chest tubes noted. Reevaluated today on 04/21/20, patient is status post CABG, postoperative day #2. Remains in the ICU, asymptomatic, presently on room air, achieving 750 ML with incentive spirometry. Chest tubes are out. Patient is hemodynamically stable, not requiring any inotropes or any pressors, he is in normal sinus rhythm. Chest x-ray showed left basilar atelectasis, expected. Pain seems to be fairly well controlled. Patient was ambulatory in the hallway yesterday with physical therapy. No major issues overnight Objective - Vital Signs Vital signs: Vital Signs Temp 98.7 F 03/25/20 12:00 Pulse 96 03/25/20 12:00 Resp 28 H 03/25/20 12:00 BP 128/74 03/25/20 12:00 Pulse Ox 96 03/25/20 12:00 Intake & Output 03/24/20 03/25/20 03/25/20 18:59 06:59 18:59 Intake Total 1235.365 697.394 228 Output Total 814 1010 260 Balance 421.365 -312.606 -32 Weight 103.2 kg Intake: IV 880.5 682 108 Albumin Human 5% 250 ml 250 250 In Empty Bag 1 bag @ 250 mls/hr IVPB Q1HR PRN Rx#: [id number] CO/CI injectate 60 Diltiazem 125 mg In 25 Sodium Chloride 0.9% 100 ml @ 5 MG/HR 5 mls/hr IV .Q24H [facility] Rx#:[id number] Lactated Ringers 1,000 ml 460 360 90 @ 20 mls/hr IV .Q24H [facility] Rx#:[id number] Nitroglycerin-D5w Pmx 50 1.5 mg In Dextrose/Water 1 250ml.bag @ 5 MCG/MIN 1.5 mls/hr IV .Q24H [facility] Rx#: [id number] Pressure Bag 84 72 18 Intake, IV Titration 4.865 15.394 Amount Insulin Regular 100 unit 4.865 15.394 In Sodium Chloride 0.9% 100 ml @ Per Protocol IV .Q0M [facility] Rx#:[id number] Oral 350 120 Output: Chest Tube Drainage 270 160 55 Left/Right Pleural 110 60 35 Mediastinal 160 100 20 Drainage 15 15 Left Wrist 15 15 Urine 529 835 205 Other: Voiding Method Indwelling Catheter Indwelling Catheter Urinal # Voids 2 ABP, PAP, CO, CI - Last Documented Arterial Blood Pressure 149/50 Pulmonary Artery Pressure 33/10 Cardiac Output 7 Cardiac Index 3.2 - Exam Physical Exam: Revealed a 60-year-old white male in no distress. Head: Atraumatic, normocephalic. Right IJ catheter and Cordis noted. HEENT:[Neck is supple.] [No neck masses.] [No thyromegaly.] [No JVD.] Chest: Lungs sounds diminished bilaterally. No crackles or rhonchi or wheezes. Cardiac Exam: [Normal S1 and S2, positive pericardial rub.. Abdomen: [Soft, nontender, no megaly, no rebound, no guarding, normal bowel sounds.] Extremities: [No clubbing, no edema, no cyanosis.]Sternum stable. A/V epicardial pacemaker wires present, connected to generator, AAI mode with a backup rate 50 bpm. Palpable peripheral pulses bilaterally. No edema present. No calf pain or tenderness noted. Right internal jugular Cordis, right radial arterial line present. Heart hugger in place with patient attempting to demonstrate appropriate use. Antiembolism stockings, SCDs present. Neurological Exam: [No focal neurologic deficit.] Alert and oriented 3. Psychiatric: Normal mood affect and normal mental status examination. Skin: warm and dry with evidence of good perfusion. Anterior chest incision well approximated and covered with dry intact dressing. - Labs CBC & Chem 7: 03/25/20 04:00 03/25/20 04:00 Labs: Abnormal Lab Results - Last 24 Hours (Table) 03/22/20 03/24/20 03/24/20 Range/Units 08:11 13:16 14:10 RBC (4.30-5.90) m/uL Hgb (13.0-17.5) gm/dL Hct (39.0-53.0) % Plt Count (150-450) k/uL Sodium (137-145) mmol/L Glucose (74-99) mg/dL POC Glucose (mg/dL) 123 H 116 H (75-99) mg/dL AST (17-59) U/L Alkaline Phosphatase (38-126) U/L Total Protein (6.3-8.2) g/dL Albumin (3.5-5.0) g/dL Crossmatch See Detail 03/24/20 03/24/20 03/24/20 Range/Units 15:21 16:16 16:58 RBC (4.30-5.90) m/uL Hgb (13.0-17.5) gm/dL Hct (39.0-53.0) % Plt Count (150-450) k/uL Sodium (137-145) mmol/L Glucose (74-99) mg/dL POC Glucose (mg/dL) 116 H 112 H 129 H (75-99) mg/dL AST (17-59) U/L Alkaline Phosphatase (38-126) U/L Total Protein (6.3-8.2) g/dL Albumin (3.5-5.0) g/dL Crossmatch 03/24/20 03/24/20 03/24/20 Range/Units 18:09 19:09 20:17 RBC (4.30-5.90) m/uL Hgb (13.0-17.5) gm/dL Hct (39.0-53.0) % Plt Count (150-450) k/uL Sodium (137-145) mmol/L Glucose (74-99) mg/dL POC Glucose (mg/dL) 117 H 114 H 112 H (75-99) mg/dL AST (17-59) U/L Alkaline Phosphatase (38-126) U/L Total Protein (6.3-8.2) g/dL Albumin (3.5-5.0) g/dL Crossmatch 03/24/20 03/25/20 03/25/20 Range/Units 21:18 00:04 01:04 RBC (4.30-5.90) m/uL Hgb (13.0-17.5) gm/dL Hct (39.0-53.0) % Plt Count (150-450) k/uL Sodium (137-145) mmol/L Glucose (74-99) mg/dL POC Glucose (mg/dL) 112 H 100 H 108 H (75-99) mg/dL AST (17-59) U/L Alkaline Phosphatase (38-126) U/L Total Protein (6.3-8.2) g/dL Albumin (3.5-5.0) g/dL Crossmatch 03/25/20 03/25/20 03/25/20 Range/Units 03:01 04:00 04:00 RBC 3.82 L (4.30-5.90) m/uL Hgb 10.8 L (13.0-17.5) gm/dL Hct 33.4 L (39.0-53.0) % Plt Count 111 L (150-450) k/uL Sodium 132 L (137-145) mmol/L Glucose 118 H (74-99) mg/dL POC Glucose (mg/dL) 114 H (75-99) mg/dL AST 62 H (17-59) U/L Alkaline Phosphatase 33 L (38-126) U/L Total Protein 5.1 L (6.3-8.2) g/dL Albumin 3.0 L (3.5-5.0) g/dL Crossmatch 03/25/20 03/25/20 03/25/20 Range/Units 04:01 05:01 06:00 RBC (4.30-5.90) m/uL Hgb (13.0-17.5) gm/dL Hct (39.0-53.0) % Plt Count (150-450) k/uL Sodium (137-145) mmol/L Glucose (74-99) mg/dL POC Glucose (mg/dL) 118 H 100 H 102 H (75-99) mg/dL AST (17-59) U/L Alkaline Phosphatase (38-126) U/L Total Protein (6.3-8.2) g/dL Albumin (3.5-5.0) g/dL Crossmatch 03/25/20 03/25/20 Range/Units 07:11 11:57 RBC (4.30-5.90) m/uL Hgb (13.0-17.5) gm/dL Hct (39.0-53.0) % Plt Count (150-450) k/uL Sodium (137-145) mmol/L Glucose (74-99) mg/dL POC Glucose (mg/dL) 101 H 112 H (75-99) mg/dL AST (17-59) U/L Alkaline Phosphatase (38-126) U/L Total Protein (6.3-8.2) g/dL Albumin (3.5-5.0) g/dL Crossmatch Assessment and Plan Assessment: Impression: Status post four-vessel CABG. Postoperative day #2 Lifelong nonsmoker. Family history of premature coronary artery disease. Dyslipidemia. Recommendation: Continue beta april statin Plavix and aspirin. Increase activity as tolerated. Continue GI and DVT prophylaxis. Continue pain management. Continue incentive spirometry. We'll continue to follow Time with Patient: Less than 30
--- NOTE | 2020-03-25 14:41 | P.PN ---
Subjective This is this is a pleasant 60 years old male with past medical history of hyperlipidemia, GERD. Presented on 03/18. Patient was complaining of from chest pain and dyspnea, he underwent cardiac cath by Dr. Dr. Bush showing severe triple vessel coronary artery disease. He underwent extensive workup by cardiothoracic surgery. His status post coronary artery bypass grafting of 4 vessels on 03/23. Patient remains in the ICU for close monitoring and management. Medical consult has been requested for medical management today. Patient sitting in bed comfortable. Not In distress, he has pain at the chest surgical site was some stomach upset, no nausea vomiting, he is eating little bit. He is hemodynamically stable. Labs reviewed His currently on small dose of insulin drip at 1 unit per hour. Also his on Cardizem drip. He has mild leukocytosis of 11.8 K. Hemoglobin 12.4. Platelets 145K. Glucose is controlled. BMP and liver enzymes were unremarkable. UA is negative. FOBT is negative. Hepatitis panel is negative. Rotavirus is not detected. Chest x-ray: Postoperative changes of CABG. CT of the chest no acute process. Carotid Doppler is negative for significant stenosis. Echocardiogram showing ejection fraction between 55 and 60%, no significant valvular heart disease. 03/25/20 Patient sitting in chair more comfortable today, he has less chest pain compared to yesterday and he rated as 5/10 in severity but this more satisfied with his severity compared to yesterday. He has this stomach upset and he ate some apple sauce this morning. Insulin and amiodarone drip are off this morning. He has a right chest tube which can be taken off today most likely per cardiothoracic surgery team patient is on aspirin 325 mg and Plavix and subcutaneous heparin. Objective - Vital Signs Vital signs: Vital Signs Temp 98.7 F 03/25/20 12:00 Pulse 96 03/25/20 12:00 Resp 28 H 03/25/20 12:00 BP 128/74 03/25/20 12:00 Pulse Ox 96 03/25/20 12:00 Intake & Output 03/24/20 03/25/20 03/25/20 18:59 06:59 18:59 Intake Total 1235.365 697.394 228 Output Total 814 1010 260 Balance 421.365 -312.606 -32 Weight 103.2 kg Intake: IV 880.5 682 108 Albumin Human 5% 250 ml 250 250 In Empty Bag 1 bag @ 250 mls/hr IVPB Q1HR PRN Rx#: [id number] CO/CI injectate 60 Diltiazem 125 mg In 25 Sodium Chloride 0.9% 100 ml @ 5 MG/HR 5 mls/hr IV .Q24H [facility] Rx#:[id number] Lactated Ringers 1,000 ml 460 360 90 @ 20 mls/hr IV .Q24H [facility] Rx#:[id number] Nitroglycerin-D5w Pmx 50 1.5 mg In Dextrose/Water 1 250ml.bag @ 5 MCG/MIN 1.5 mls/hr IV .Q24H [facility] Rx#: [id number] Pressure Bag 84 72 18 Intake, IV Titration 4.865 15.394 Amount Insulin Regular 100 unit 4.865 15.394 In Sodium Chloride 0.9% 100 ml @ Per Protocol IV .Q0M [facility] Rx#:[id number] Oral 350 120 Output: Chest Tube Drainage 270 160 55 Left/Right Pleural 110 60 35 Mediastinal 160 100 20 Drainage 15 15 Left Wrist 15 15 Urine 529 835 205 Other: Voiding Method Indwelling Catheter Indwelling Catheter Urinal # Voids 2 ABP, PAP, CO, CI - Last Documented Arterial Blood Pressure 149/50 Pulmonary Artery Pressure 33/10 Cardiac Output 7 Cardiac Index 3.2 - Exam GENERAL: The patient is alert and oriented x3, not in any acute distress. Well developed, well nourished. HEENT: Pupils are round and equally reacting to light. EOMI. No scleral icterus. No conjunctival pallor. Normocephalic, atraumatic. No pharyngeal erythema. No thyromegaly. -CARDIOVASCULAR: S1 and S2 present. No murmurs, rubs, or gallops. Surgical wound with a dressing in place, rest of exam is deferred to surgical team PULMONARY: Chest is clear to auscultation, no wheezing or crackles. ABDOMEN: Soft, nontender, nondistended, normoactive bowel sounds. No palpable organomegaly. MUSCULOSKELETAL: No joint swelling or deformity. EXTREMITIES: No cyanosis, clubbing, or pedal edema. NEUROLOGICAL: Gross neurological examination did not reveal any focal deficits. SKIN: No rashes. No petechiae - Labs CBC & Chem 7: 03/25/20 04:00 03/25/20 04:00 Labs: Abnormal Lab Results - Last 24 Hours (Table) 03/22/20 03/24/20 03/24/20 Range/Units 08:11 15:21 16:16 RBC (4.30-5.90) m/uL Hgb (13.0-17.5) gm/dL Hct (39.0-53.0) % Plt Count (150-450) k/uL Sodium (137-145) mmol/L Glucose (74-99) mg/dL POC Glucose (mg/dL) 116 H 112 H (75-99) mg/dL AST (17-59) U/L Alkaline Phosphatase (38-126) U/L Total Protein (6.3-8.2) g/dL Albumin (3.5-5.0) g/dL Crossmatch See Detail 03/24/20 03/24/20 03/24/20 Range/Units 16:58 18:09 19:09 RBC (4.30-5.90) m/uL Hgb (13.0-17.5) gm/dL Hct (39.0-53.0) % Plt Count (150-450) k/uL Sodium (137-145) mmol/L Glucose (74-99) mg/dL POC Glucose (mg/dL) 129 H 117 H 114 H (75-99) mg/dL AST (17-59) U/L Alkaline Phosphatase (38-126) U/L Total Protein (6.3-8.2) g/dL Albumin (3.5-5.0) g/dL Crossmatch 03/24/20 03/24/20 03/25/20 Range/Units 20:17 21:18 00:04 RBC (4.30-5.90) m/uL Hgb (13.0-17.5) gm/dL Hct (39.0-53.0) % Plt Count (150-450) k/uL Sodium (137-145) mmol/L Glucose (74-99) mg/dL POC Glucose (mg/dL) 112 H 112 H 100 H (75-99) mg/dL AST (17-59) U/L Alkaline Phosphatase (38-126) U/L Total Protein (6.3-8.2) g/dL Albumin (3.5-5.0) g/dL Crossmatch 03/25/20 03/25/20 03/25/20 Range/Units 01:04 03:01 04:00 RBC 3.82 L (4.30-5.90) m/uL Hgb 10.8 L (13.0-17.5) gm/dL Hct 33.4 L (39.0-53.0) % Plt Count 111 L (150-450) k/uL Sodium (137-145) mmol/L Glucose (74-99) mg/dL POC Glucose (mg/dL) 108 H 114 H (75-99) mg/dL AST (17-59) U/L Alkaline Phosphatase (38-126) U/L Total Protein (6.3-8.2) g/dL Albumin (3.5-5.0) g/dL Crossmatch 03/25/20 03/25/20 03/25/20 Range/Units 04:00 04:01 05:01 RBC (4.30-5.90) m/uL Hgb (13.0-17.5) gm/dL Hct (39.0-53.0) % Plt Count (150-450) k/uL Sodium 132 L (137-145) mmol/L Glucose 118 H (74-99) mg/dL POC Glucose (mg/dL) 118 H 100 H (75-99) mg/dL AST 62 H (17-59) U/L Alkaline Phosphatase 33 L (38-126) U/L Total Protein 5.1 L (6.3-8.2) g/dL Albumin 3.0 L (3.5-5.0) g/dL Crossmatch 03/25/20 03/25/20 03/25/20 Range/Units 06:00 07:11 11:57 RBC (4.30-5.90) m/uL Hgb (13.0-17.5) gm/dL Hct (39.0-53.0) % Plt Count (150-450) k/uL Sodium (137-145) mmol/L Glucose (74-99) mg/dL POC Glucose (mg/dL) 102 H 101 H 112 H (75-99) mg/dL AST (17-59) U/L Alkaline Phosphatase (38-126) U/L Total Protein (6.3-8.2) g/dL Albumin (3.5-5.0) g/dL Crossmatch Assessment and Plan Assessment: Severe triple vessel coronary artery disease status post CABG Hyperlipidemia Prediabetes with hemoglobin A1c 6.2% Plan: This is a pleasant 60 years old male STATUS post CABG. Continue with pain management. Continue with incentive spirometry. Labs and medication were reviewed.. Continue same treatment. Continue with symptomatic treatment. Resume home medication. Monitor lytes and vitals. DVT and GI prophylaxis. Further recommendations of the clinical course of the patient DVT prophylaxis: Subcutaneous heparin GI Prophylaxis: Ppi
[2020-03-25 16:45] LABS: Glucose,Whole Blood 141 mg/dL (75-99)
[2020-03-25 20:11] LABS: Glucose,Whole Blood 111 mg/dL (75-99)
[2020-03-25] MEDS: TRIAMCINOLONE ACET 0.1% ORAL PASTE 5 GM TUBE MUCOUS MEM SCH (20:15)
[2020-03-25] MEDS: SENNOSIDES-DOCUSATE SODIUM 1 EACH TAB PO SCH (20:15)
[2020-03-25] MEDS: MELATONIN 5 MG TABLET PO SCH (20:15)
[2020-03-25] MEDS: TAMSULOSIN 0.4 MG CAP.ER.24H PO SCH (20:16)
[2020-03-26] MEDS: HYDROcodone/APAP 5-325MG 1 EACH TAB PO PRN (02:33)
[2020-03-26] MEDS: METOCLOPRAMIDE 5 MG/ML 2 ML VIAL IVP PRN (02:35)
[2020-03-26 04:45] LABS: HCT 31.9 % (39.0-53.0); HGB 10.6 gm/dL (13.0-17.5); MCH 29.1 pg (25.0-35.0); MCHC 33.3 g/dL (31.0-37.0); MCV 87.4 fL (80.0-100.0); Mean Platelet Volume 7.9; Platelet Count 126 k/uL (150-450); RBC 3.65 m/uL (4.30-5.90); RDW 13.2 % (11.5-15.5); WBC 9.5 k/uL (3.8-10.6)
[2020-03-26 05:00] LABS: African American GFR (CKD) >90 (>60 ml/min/1.73 sqM); Anion Gap 4 mmol/L; Blood Urea Nitrogen 16 mg/dL (9-20); Calcium 8.5 mg/dL (8.4-10.2); Carbon Dioxide 28 mmol/L (22-30); Chloride 100 mmol/L (98-107); Glucose 120 mg/dL (74-99); Non-African American GFR(CKD) >90 (>60 ml/min/1.73 sqM); Potassium 4.4 mmol/L (3.5-5.1); Sodium 132 mmol/L (137-145)
[2020-03-26] MEDS: KETOROLAC 15 MG/ML 1 ML VIAL IVP SCH ×2 (06:39→12:49)
[2020-03-26] MEDS: PANTOPRAZOLE 40 MG TABLET PO SCH (06:39)
[2020-03-26 07:06] LABS: Glucose,Whole Blood 123 mg/dL (75-99)
[2020-03-26] MEDS: INSULIN ASPART (NovoLOG) 100 UNIT/ML VIAL SQ SCH ×4 (07:07→21:29)
[2020-03-26] MEDS ORDERED: FUROSEMIDE 10 MG/ML 2 ML VIAL IV ONE (07:46)
--- NOTE | 2020-03-26 08:11 | XR ---
EXAMINATION TYPE: XR chest 2V DATE OF EXAM: 03/26/2020 COMPARISON: 03/25/2020 HISTORY: 60 year-old male post CABG TECHNIQUE: PA and lateral views FINDINGS: Median sternotomy wires are present with post-CABG clips in the mediastinum. Heart remains borderline enlarged. Improving lung volumes. Some patchy bibasilar opacity remains. Chest tubes have been remov ed. No appreciable pneumothorax. IMPRESSION: Patchy bibasilar areas of atelectasis. Chest tubes removed. No appreciable pneumothorax.
[2020-03-26] MEDS: IPRATROPIUM-ALBUTEROL 3 ML NEB INHALATION SCH ×4 (08:28→19:53)
[2020-03-26] MEDS: HEPARIN SODIUM,PORCINE 5,000 UNIT/ML 1 ML VIAL SQ SCH ×2 (08:41→18:25)
[2020-03-26] MEDS: amLODIPine 5 MG TAB PO SCH (08:42)
[2020-03-26] MEDS: ATORVASTATIN 40 MG TAB PO SCH (08:42)
[2020-03-26] MEDS: ASCORBIC ACID 500 MG TAB PO SCH ×2 (08:42→09:05)
[2020-03-26] MEDS: ASPIRIN 325 MG TAB PO SCH (08:42)
[2020-03-26] MEDS: METOPROLOL TARTRATE 25 MG TAB PO SCH (08:43)
[2020-03-26] MEDS: CHOLECALCIFEROL 1,000 UNIT TAB PO SCH ×2 (08:43→09:05)
[2020-03-26] MEDS: CLOPIDOGREL 75 MG TAB PO SCH (08:43)
[2020-03-26] MEDS ORDERED: METOPROLOL TARTRATE 25 MG TAB PO STA (09:15)
[2020-03-26 11:09] VITALS: BMI 29.7
[2020-03-26 12:44] LABS: Glucose,Whole Blood 101 mg/dL (75-99)
--- NOTE | 2020-03-26 12:58 | P.PN ---
Subjective Progress Note Date: 03/26/20 Principal diagnosis: Status post CABG. Postoperative day #3 This is a very pleasant 60-year-old gentleman who follows with Dr. Medrano as his primary care provider. He has a history of hyperlipidemia. He had been developing exertional chest discomfort and a stress echocardiogram revealed anteroseptal and anterior apical hypokinesis. He was brought in yesterday for an elective cardiac catheterization and was found to have a 99% stenosis of the LAD, 94% stenosis of the circumflex and 70% stenosis of the proximal RCA, should be elevated with an area of 70-80%. Ejection fraction 55-60%. He has been seen and evaluated by cardiothoracic surgery and the plan is for coronary revascularization early next week. Currently he is seen in consultation on the selective care unit. He is awake and alert in no acute distress. Resting quite comfortably in bed. Denies any chest discomfort currently. No shortness of breath, cough or congestion. He is a lifelong nonsmoker. He is maintaining O2 saturations in the mid 90s on room air. Pulmonary function testing pending. He's afebrile. Hemodynamically stable. White count 9.5. Hemoglobin 14.8. Sodium 137. Potassium 4.4. Creatinine 0.92. Ashley virus not detected. He remains on a heparin drip. The patient is seen today 03/20/2020 in follow-up on the selective care unit. He is currently sitting up in a chair at the bedside. Awake and alert in no acute distress. Maintaining good O2 saturation 90s on room air. No shortness of breath, cough or congestion. No chest pain, palpitations lightheadedness or dizziness. He remains on heparin drip. Nitropaste in place. White count 8.9. Hemoglobin 15.2. Sodium 138. Potassium 4.3. Creatinine 0.92. The patient is seen today 03/21/2020 in follow-up on the selective care unit. He remains awake and alert in no acute distress. He remains on room air with good O2 saturations in the 90s. No chest discomfort currently. One brief episode of mild chest discomfort while ambulating yesterday. Computed tomography scan of the chest yesterday revealed no acute pulmonary process. White count 7.8. Hemoglobin 14.2. Sodium 138. Potassium 4.2. Creatinine 0.97 . He remains on heparin drip. On 03/22/2020 patient seen in follow-up on selective care unit, he is awake and alert, in no acute distress, resting comfortably in bed, breathing is comfortable, room air pulse ox of 98%, he states that times he'll have mild chest discomfort, otherwise no chest pain, afebrile, remains on heparin infusion, and 0.9 normal saline at a rate of 20 ML per hour, denies any difficulty breathing, chest CT was obtained on 03/19/2020 showing no acute pulmonary process. Today's labs have been reviewed, showing CBC within normal limits, electrolytes and renal profile within normal limits On 03/23/2020 patient is seen in intensive care unit, in the postoperative period, status post four-vessel coronary artery bypass grafting. He is sedated, intubated, on mechanical ventilator, on SIMV mode of ventilation, with a rate of 12, tidal blood 600, FiO2 is 100% and PEEP of 5, the rate was increased to 14 breaths per minute upon arrival to the ICU, postoperative blood gases pending, chest x-rays pending. Patient had left radial artery graft. Hemodynamically she is stable, did received Cell Saver and the OR. Mediastinal chest tube with 15 mL of serosanguineous output, left and right pleural chest tubes are Y- connected together, with only 5 mL of sanguinous output. Left radial MELANIE drain with minimal amount of single vessel output, compressed and draining. No vaso pressors, point tenderness and a rate of 50 ML per hour, Cardizem infusion at 5 mg per hour, Diprivan infusion per protocol. Patient is being paced via epicardial AV wires, in AAI mode with a rate of 60 BPM, underlying rhythm is sinus bradycardia with a rate of 40 BPM. PA pressures 29/15, cardiac output is 5.1 and cardiac index is 2.3. Reevaluated today on 03/24/20, patient is status post CABG, postoperative day #1. He remains in the ICU, patient had a four-vessel CABG. He is on oxygen at 2 L 96% O2 saturation. He is also on Cardizem at 5 mg per hour. And IV fluid at 50 mL per hour. Insulin 1 unit per hour. His hemodynamics showed a pulmonary artery pressure 18/5 CVP of 2 cardiac output of 7 cardiac index of 3.2. Patient was extubated yesterday at 19:43, tolerated the extubation quite well. Chest x- ray showed mostly minimal postoperative atelectasis. No significant infiltrate or edema. Patient continues to have right internal jugular catheter and Cordis. And he has a right radial arterial line, left and right pleural chest tubes noted. Reevaluated today on 03/25/20, patient is status post CABG, postoperative day #2. Remains in the ICU, asymptomatic, presently on room air, achieving 750 ML with incentive spirometry. Chest tubes are out. Patient is hemodynamically stable, not requiring any inotropes or any pressors, he is in normal sinus rhythm. Chest x-ray showed left basilar atelectasis, expected. Pain seems to be fairly well controlled. Patient was ambulatory in the hallway yesterday with physical therapy. No major issues overnight Reevaluated today on 03/26/20, patient remains in the ICU, he is doing extremely well, his postoperative day #3, patient is on room air, hemoglobin is 8.6, chest x-ray minimal left basilar atelectasis as expected. Pain seems to be fairly well controlled, patient is ambulating, no hemodynamic issues over the last couple of days. Hence patient may be discharged home today. Or possibly tomorrow Objective - Vital Signs Vital signs: Vital Signs Temp 99 F 03/26/20 00:13 Pulse 67 03/26/20 11:41 Resp 14 03/26/20 04:00 BP 110/61 03/26/20 04:00 Pulse Ox 92 L 03/26/20 02:00 Intake & Output 03/25/20 03/26/20 03/26/20 18:59 06:59 18:59 Intake Total 348 840 Output Total 510 670 Balance -162 170 Weight 102.1 kg 102.1 kg Intake: IV 108 Lactated Ringers 1,000 ml 90 @ 20 mls/hr IV .Q24H [facility] Rx#:[id number] Pressure Bag 18 Oral 240 840 Output: Chest Tube Drainage 55 Left/Right Pleural 35 Mediastinal 20 Urine 455 670 Other: Voiding Method Urinal Urinal # Voids 2 ABP, PAP, CO, CI - Last Documented Arterial Blood Pressure 149/50 Pulmonary Artery Pressure 33/10 Cardiac Output 7 Cardiac Index 3.2 - Exam Physical Exam: Revealed a 60-year-old white male in no distress. Head: Atraumatic, normocephalic. Right IJ catheter and Cordis noted. HEENT:[Neck is supple.] [No neck masses.] [No thyromegaly.] [No JVD.] Chest: Lungs sounds diminished bilaterally. No crackles or rhonchi or wheezes. Cardiac Exam: [Normal S1 and S2, positive pericardial rub.. Abdomen: [Soft, nontender, no megaly, no rebound, no guarding, normal bowel sounds.] Extremities: [No clubbing, no edema, no cyanosis.]Sternum stable. Neurological Exam: [No focal neurologic deficit.] Alert and oriented 3. Psychiatric: Normal mood affect and normal mental status examination. Skin: warm and dry with evidence of good perfusion. Anterior chest incision well approximated and covered with dry intact dressing. - Labs CBC & Chem 7: 03/26/20 04:32 03/26/20 04:32 Labs: Abnormal Lab Results - Last 24 Hours (Table) 03/25/20 03/25/20 03/26/20 Range/Units 16:43 20:10 04:32 RBC 3.65 L (4.30-5.90) m/uL Hgb 10.6 L (13.0-17.5) gm/dL Hct 31.9 L (39.0-53.0) % Plt Count 126 L (150-450) k/uL Sodium (137-145) mmol/L Glucose (74-99) mg/dL POC Glucose (mg/dL) 141 H 111 H (75-99) mg/dL 03/26/20 03/26/20 03/26/20 Range/Units 04:32 07:04 12:40 RBC (4.30-5.90) m/uL Hgb (13.0-17.5) gm/dL Hct (39.0-53.0) % Plt Count (150-450) k/uL Sodium 132 L (137-145) mmol/L Glucose 120 H (74-99) mg/dL POC Glucose (mg/dL) 123 H 101 H (75-99) mg/dL Assessment and Plan Assessment: Impression: Status post four-vessel CABG. Postoperative day #3 Lifelong nonsmoker. Family history of premature coronary artery disease. Dyslipidemia. Recommendation: Continue beta april statin Plavix and aspirin. Continue to ambulate. Continue GI and DVT prophylaxis. Continue pain management. Continue incentive spirometry. Possible discharge planning today or tomorrow Time with Patient: Less than 30
--- NOTE | 2020-03-26 13:38 | P.PN ---
Subjective Progress Note Date: 03/26/20 Principal diagnosis: Coronary artery disease. Previous medical history of hyperlipidemia, BPH, lifelong nonsmoker, father with history of aortic aneurysm, both grandfathers diagnosed with heart disease in their early 50s POD #3 coronary artery bypass grafting 4 vessels, left internal mammary artery to the left anterior descending artery, left radial artery to the obtuse little inal artery, reverse saphenous vein graft to the diagonal artery, reverse saphenous vein graft to the posterior descending artery, endoscopic harvesting of the left greater saphenous vein, endoscopic harvesting of the left radial artery, ligation of the left atrial appendage using a 35 mm AtriClip, epi-aortic ultrasound, intraoperative transesophageal echocardiogram. The patient is sitting up in a recliner in the intensive care unit in no acute distress. States pain is much better controlled since chest tube removal and he denies any shortness of breath. Does complain of occasional nausea. He was ambulatory in the hallway today with physical therapy. Remains in normal sinus rhythm, hemodynamically stable on no inotropes or pressors. No new events overnight. Transfer orders for 3 S. cardiac stepdown unit were placed yesterday, no bed available. Objective - Vital Signs Vital signs: Vital Signs Temp 99 F 03/26/20 00:13 Pulse 67 03/26/20 11:41 Resp 14 03/26/20 04:00 BP 110/61 03/26/20 04:00 Pulse Ox 92 L 03/26/20 02:00 Intake & Output 03/25/20 03/26/20 03/26/20 18:59 06:59 18:59 Intake Total 348 840 Output Total 510 670 Balance -162 170 Weight 102.1 kg 102.1 kg Intake: IV 108 Lactated Ringers 1,000 ml 90 @ 20 mls/hr IV .Q24H [facility] Rx#:[id number] Pressure Bag 18 Oral 240 840 Output: Chest Tube Drainage 55 Left/Right Pleural 35 Mediastinal 20 Urine 455 670 Other: Voiding Method Urinal Urinal # Voids 2 ABP, PAP, CO, CI - Last Documented Arterial Blood Pressure 149/50 Pulmonary Artery Pressure 33/10 Cardiac Output 7 Cardiac Index 3.2 - Constitutional General appearance: Present: cooperative, no acute distress - Respiratory Details: Lungs sounds diminished bilaterally. Respirations even, nonlabored. Currently on room air with oxygen saturation 92%. Able to achieve 750 mL on his incentive spirometry. Strong cough. - Cardiovascular Details: S1, S2 present. Regular rate and rhythm, sinus rhythm on telemetry. Sternum stable. A/V epicardial pacemaker wires present, grounded. Palpable peripheral pulses bilaterally. No edema present. No calf pain or tenderness noted. Heart hugger in place with patient attempting to demonstrate appropriate use. Antiembolism stockings, SCDs present. - Gastrointestinal Gastrointestinal Comment(s): Abdomen soft, nontender, nondistended. Active bowel sounds present 4 quadrants. Tolerating diet. Positive bowel movement - Genitourinary Genitourinary Comment(s): Wolfe catheter discontinued yesterday, patient has voided - Integumentary Integumentary Comment(s): Skin is warm and dry with evidence of good perfusion. Anterior chest incision well approximated and covered with dry intact dressing. Left radial artery harvest site well approximated, patient able to move all his fingers and dry talc racker appropriately, good cap refill, denies numbness or tingling. Left lower extremity EVH site well approximated - Neurologic Neurologic: Present: CNII-XII intact - Musculoskeletal Musculoskeletal: Present: gait normal, strength equal bilaterally - Psychiatric Psychiatric: Present: A&O x's 3, appropriate affect, intact judgment & insight - Allied health notes Allied health notes reviewed: nursing - Labs CBC & Chem 7: 03/26/20 04:32 03/26/20 04:32 Labs: Abnormal Lab Results - Last 24 Hours (Table) 03/25/20 03/25/20 03/26/20 Range/Units 16:43 20:10 04:32 RBC 3.65 L (4.30-5.90) m/uL Hgb 10.6 L (13.0-17.5) gm/dL Hct 31.9 L (39.0-53.0) % Plt Count 126 L (150-450) k/uL Sodium (137-145) mmol/L Glucose (74-99) mg/dL POC Glucose (mg/dL) 141 H 111 H (75-99) mg/dL 03/26/20 03/26/20 03/26/20 Range/Units 04:32 07:04 12:40 RBC (4.30-5.90) m/uL Hgb (13.0-17.5) gm/dL Hct (39.0-53.0) % Plt Count (150-450) k/uL Sodium 132 L (137-145) mmol/L Glucose 120 H (74-99) mg/dL POC Glucose (mg/dL) 123 H 101 H (75-99) mg/dL - Imaging and Cardiology Chest x-ray: report reviewed, image reviewed Assessment and Plan Assessment: 1. Coronary artery disease, status post four-vessel CABG 2. Hyperlipidemia 3. BPH 4. Lifelong nonsmoker 5. Father with history of aortic aneurysm 6. Both grandfathers with coronary artery diagnosis in their early 50s Plan: 1. Continue aspirin, statin, Plavix, beta april therapy. Will increase beta april therapy as tolerated, increased to 50 mg twice daily today 2. Encourage continued incentive spirometry use. Bronchodilators per pulmonology 3. Increase activity, ambulate as tolerated. PT/OT/cardiac rehab consulted 4. Continue Norvasc for radial artery spasm. Do not discontinue CCB without discussing with cardiac surgery 5. Will monitor daily labs and x-rays. Electrolyte replacement per protocol. 6. GI/DVT prophylaxis 7. Pain control with current medication regimen 8. Insulin management per primary care services. Patient is not diabetic, hemoglobin A1c 6.2% 9. Epicardial pacemaker wires discontinued. Patient to remain on bedrest for 1 hour post-removal 10. Transfer orders placed yesterday for 3 S. cardiac stepdown unit, may transfer when bed available 11. Discharge planning in progress. Anticipate discharge to home with home care in 24-48 hours depending on patient's progress 12. More recommendations to follow Time with Patient: Greater than 30
--- NOTE | 2020-03-26 14:15 | PN ---
PROGRESS NOTE Mr. Lang is doing well today, he has no pain. He is status post bypass surgery, vitals are stable, no JVD, S1, S2 heard normally. Doing better on incentive spirometry. Heart sounds are normal, short systolic murmur noted. Lungs reveal improved air entry. Abdomen and lower extremity exam otherwise is unchanged. MMODL / IJN: [id number] /
--- NOTE | 2020-03-26 15:43 | P.PN ---
Subjective Progress Note Date: 03/26/20 Principal diagnosis: This is this is a pleasant 60 years old male with past medical history of hyperlipidemia, GERD. Presented on 03/18. Patient was complaining of from chest pain and dyspnea, he underwent cardiac cath by Dr. Dr. Bush showing severe triple vessel coronary artery disease. He underwent extensive workup by cardiothoracic surgery. His status post coronary artery bypass grafting of 4 vessels on 03/23. Patient remains in the ICU for close monitoring and management. Medical consult has been requested for medical management today. Patient sitting in bed comfortable. Not In distress, he has pain at the chest surgical site was some stomach upset, no nausea vomiting, he is eating little bit. He is hemodynamically stable. Labs reviewed His currently on small dose of insulin drip at 1 unit per hour. Also his on Cardizem drip. He has mild leukocytosis of 11.8 K. Hemoglobin 12.4. Platelets 145K. Glucose is controlled. BMP and liver enzymes were unremarkable. UA is negative. FOBT is negative. Hepatitis panel is negative. Rotavirus is not detected. Chest x-ray: Postoperative changes of CABG. CT of the chest no acute process. Carotid Doppler is negative for significant stenosis. Echocardiogram showing ejection fraction between 55 and 60%, no significant valvular heart disease. 03/25/20 Patient sitting in chair more comfortable today, he has less chest pain compared to yesterday and he rated as 5/10 in severity but this more satisfied with his severity compared to yesterday. He has this stomach upset and he ate some apple sauce this morning. Insulin and amiodarone drip are off this morning. He has a right chest tube which can be taken off today most likely per cardiothoracic surgery team patient is on aspirin 325 mg and Plavix and subcutaneous heparin. 03/26/2020 Patient is seen and evaluated and follow-up with no acute overnight issues. Patient states he feels much better than yesterday although continues to have intermittent nausea and abdominal discomfort with eating and does not have much of an appetite. Patient is currently sitting up in the chair using incentive spirometer. Patient currently remains off of the insulin drip and is on sliding scale at this time and will continue. White blood count is 9.5 and hemoglobin is 10.6, sodium slightly low at 132 with a potassium of 4.4. Chest tube has been removed. Patient worked with physical therapy this morning and feels fatigued otherwise feels better than yesterday. Case management and social work following working on discharge planning needs in the home with continued home care in the outpatient setting. Will continue to follow along closely. Review of systems: Constitutional: Reports mild fatigue, no reports of fever, or chills Cardiovascular: No reports of chest pain or palpitations, reports mild chest wall tenderness were previous chest tube was Respiratory: No reports of shortness of breath or cough GI: Reports intermittent nausea, no reports of vomiting, or diarrhea : No reports of dysuria or retention Neurovascular: No reports of weakness or numbness All medications have been reviewed Objective - Vital Signs Vital signs: Vital Signs Temp 99 F 03/26/20 00:13 Pulse 67 03/26/20 11:41 Resp 14 03/26/20 04:00 BP 110/61 03/26/20 04:00 Pulse Ox 92 L 03/26/20 02:00 Intake & Output 03/25/20 03/26/20 03/26/20 18:59 06:59 18:59 Intake Total 348 840 Output Total 510 670 Balance -162 170 Weight 102.1 kg 102.1 kg Intake: IV 108 Lactated Ringers 1,000 ml 90 @ 20 mls/hr IV .Q24H [facility] Rx#:[id number] Pressure Bag 18 Oral 240 840 Output: Chest Tube Drainage 55 Left/Right Pleural 35 Mediastinal 20 Urine 455 670 Other: Voiding Method Urinal Urinal # Voids 2 ABP, PAP, CO, CI - Last Documented Arterial Blood Pressure 149/50 Pulmonary Artery Pressure 33/10 Cardiac Output 7 Cardiac Index 3.2 - Exam GENERAL: The patient is alert and oriented x3, not in any acute distress. Well developed, well nourished. HEENT: Pupils are round and equally reacting to light. EOMI. No scleral icterus. No conjunctival pallor. Normocephalic, atraumatic. No pharyngeal erythema. No thyromegaly. CARDIOVASCULAR: S1 and S2 present. No murmurs, rubs, or gallops. Surgical wound with a dressing in place, rest of exam is deferred to surgical team PULMONARY: Chest is clear to auscultation, no wheezing or crackles. ABDOMEN: Soft, nontender, nondistended, normoactive bowel sounds. No palpable organomegaly. MUSCULOSKELETAL: No joint swelling or deformity. EXTREMITIES: No cyanosis, clubbing, or pedal edema. NEUROLOGICAL: Gross neurological examination did not reveal any focal deficits. SKIN: No rashes. No petechiae - Labs CBC & Chem 7: 03/26/20 04:32 03/26/20 04:32 Labs: Abnormal Lab Results - Last 24 Hours (Table) 03/25/20 03/25/20 03/26/20 Range/Units 16:43 20:10 04:32 RBC 3.65 L (4.30-5.90) m/uL Hgb 10.6 L (13.0-17.5) gm/dL Hct 31.9 L (39.0-53.0) % Plt Count 126 L (150-450) k/uL Sodium (137-145) mmol/L Glucose (74-99) mg/dL POC Glucose (mg/dL) 141 H 111 H (75-99) mg/dL 03/26/20 03/26/20 03/26/20 Range/Units 04:32 07:04 12:40 RBC (4.30-5.90) m/uL Hgb (13.0-17.5) gm/dL Hct (39.0-53.0) % Plt Count (150-450) k/uL Sodium 132 L (137-145) mmol/L Glucose 120 H (74-99) mg/dL POC Glucose (mg/dL) 123 H 101 H (75-99) mg/dL Assessment and Plan Assessment: Severe triple vessel coronary artery disease status post CABG Hyperlipidemia Prediabetes with hemoglobin A1c 6.2% DVT prophylaxis: Subcutaneous heparin GI prophylaxis: Protonix Full code Plan: Continue current medications, management, and symptomatic treatment. Will continue to follow along closely with cardiothoracic surgery. Instructed the patient and encourage the patient to continue using the incentive spirometer at least 10 times every hour while awake. Patient is working with PT/OT and increasing activity as tolerated. Patient continues to have some intermittent nausea and abdominal discomfort with eating. Encourage smaller meals. Case management and social work following working on discharge planning needs and continued home care in the home care setting. Further recommendations to follow based on the clinical course of the patient. Thank you for this consultation and we'll continue to follow along closely with you during hospitalization.
[2020-03-26] MEDS ORDERED: diphenhydrAMINE 25 MG CAP PO PRN (16:09)
[2020-03-26 16:56] LABS: Glucose,Whole Blood 140 mg/dL (75-99)
[2020-03-26 18:55] VITALS: BP 118/69
[2020-03-26 20:22] LABS: Glucose,Whole Blood 158 mg/dL (75-99)
[2020-03-26] MEDS: ACETAMINOPHEN TAB 500 MG TAB PO PRN (21:28)
[2020-03-26] MEDS: METOPROLOL TARTRATE 50 MG TAB PO SCH (21:29)
[2020-03-26] MEDS: MELATONIN 5 MG TABLET PO SCH (21:29)
[2020-03-26] MEDS: TAMSULOSIN 0.4 MG CAP.ER.24H PO SCH (21:30)
[2020-03-26] MEDS: SENNOSIDES-DOCUSATE SODIUM 1 EACH TAB PO SCH (21:30)
[2020-03-26] MEDS: TRIAMCINOLONE ACET 0.1% ORAL PASTE 5 GM TUBE MUCOUS MEM SCH (21:30)
[2020-03-26] MEDS: ONDANSETRON 4 MG/2 ML VIAL IVP PRN (21:34)
[2020-03-27] MEDS: HEPARIN SODIUM,PORCINE 5,000 UNIT/ML 1 ML VIAL SQ SCH ×2 (01:32→08:55)
[2020-03-27 04:55] LABS: HCT 31.4 % (39.0-53.0); HGB 10.6 gm/dL (13.0-17.5); MCH 29.2 pg (25.0-35.0); MCHC 33.7 g/dL (31.0-37.0); MCV 86.6 fL (80.0-100.0); Mean Platelet Volume 7.5; Platelet Count 164 k/uL (150-450); RBC 3.63 m/uL (4.30-5.90); RDW 13.1 % (11.5-15.5); WBC 8.4 k/uL (3.8-10.6)
[2020-03-27 05:21] LABS: African American GFR (CKD) >90 (>60 ml/min/1.73 sqM); Anion Gap 6 mmol/L; Blood Urea Nitrogen 15 mg/dL (9-20); Calcium 8.7 mg/dL (8.4-10.2); Carbon Dioxide 27 mmol/L (22-30); Chloride 100 mmol/L (98-107); Glucose 114 mg/dL (74-99); Non-African American GFR(CKD) >90 (>60 ml/min/1.73 sqM); Potassium 4.1 mmol/L (3.5-5.1); Sodium 133 mmol/L (137-145)
[2020-03-27 05:25] VITALS: RESP 17; TEMP 98.6
[2020-03-27] MEDS: ONDANSETRON 4 MG/2 ML VIAL IVP PRN (06:13)
[2020-03-27] MEDS: ACETAMINOPHEN TAB 500 MG TAB PO PRN (06:13)
[2020-03-27 06:46] LABS: Glucose,Whole Blood 124 mg/dL (75-99)
[2020-03-27] MEDS: INSULIN ASPART (NovoLOG) 100 UNIT/ML VIAL SQ SCH ×2 (07:45→11:55)
[2020-03-27] MEDS ORDERED: FUROSEMIDE 10 MG/ML 2 ML VIAL IV ONE (07:48)
--- NOTE | 2020-03-27 08:09 | P.PN ---
Subjective Progress Note Date: 03/27/20 Principal diagnosis: Coronary artery disease. Previous medical history of hyperlipidemia, BPH, lifelong nonsmoker, father with history of aortic aneurysm, both grandfathers diagnosed with heart disease in their early 50s POD #4 coronary artery bypass grafting 4 vessels, left internal mammary artery to the left anterior descending artery, left radial artery to the obtuse little inal artery, reverse saphenous vein graft to the diagonal artery, reverse saphenous vein graft to the posterior descending artery, endoscopic harvesting of the left greater saphenous vein, endoscopic harvesting of the left radial artery, ligation of the left atrial appendage using a 35 mm AtriClip, epi-aortic ultrasound, intraoperative transesophageal echocardiogram. The patient is sitting up in a recliner in the intensive care unit in no acute distress. States pain is much better controlled, he denies shortness of breath. Does complain of occasional nausea. He was ambulatory in the hallway today already. Remains in normal sinus rhythm, hemodynamically stable. No new events overnight. Patient states he feels ready to go home today. Objective - Vital Signs Vital signs: Vital Signs Temp 98.6 F 03/27/20 04:00 Pulse 75 03/27/20 04:00 Resp 17 03/27/20 04:00 BP 118/69 03/27/20 04:00 Pulse Ox 98 03/27/20 04:00 Intake & Output 03/26/20 03/27/20 03/27/20 18:59 06:59 18:59 Intake Total 720 Output Total 650 600 Balance 70 -600 Weight 102.1 kg 99.7 kg Intake: Oral 720 Output: Urine 650 600 Other: Voiding Method Urinal Urinal # Voids 1 # Bowel Movements 1 ABP, PAP, CO, CI - Last Documented Arterial Blood Pressure 149/50 Pulmonary Artery Pressure 33/10 Cardiac Output 7 Cardiac Index 3.2 - Constitutional General appearance: Present: cooperative, no acute distress - Respiratory Details: Lungs sounds diminished bilaterally. Respirations even, nonlabored. Currently on room air with oxygen saturation 98%. Able to achieve 750-1000 mL on his incentive spirometry. Strong cough. - Cardiovascular Details: S1, S2 present. Regular rate and rhythm, sinus rhythm on telemetry. Sternum stable. Palpable peripheral pulses bilaterally. No edema present. No calf pain or tenderness noted. Heart hugger in place with patient demonstrating appropriate use. Antiembolism stockings, SCDs present. - Gastrointestinal Gastrointestinal Comment(s): Abdomen soft, nontender, nondistended. Active bowel sounds present 4 quadrants. Tolerating diet. Positive bowel movement - Genitourinary Genitourinary Comment(s): Continues to void - Integumentary Integumentary Comment(s): Skin is warm and dry with evidence of good perfusion. Anterior chest incision well approximated and covered with dry intact dressing. 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 Left lower extremity EVH site well approximated - Neurologic Neurologic: Present: CNII-XII intact - Musculoskeletal Musculoskeletal: Present: gait normal, strength equal bilaterally - Psychiatric Psychiatric: Present: A&O x's 3, appropriate affect, intact judgment & insight - Allied health notes Allied health notes reviewed: nursing - Labs CBC & Chem 7: 03/27/20 04:17 03/27/20 04:17 Labs: Abnormal Lab Results - Last 24 Hours (Table) 03/26/20 03/26/20 03/26/20 Range/Units 12:40 16:53 20:21 RBC (4.30-5.90) m/uL Hgb (13.0-17.5) gm/dL Hct (39.0-53.0) % Sodium (137-145) mmol/L Glucose (74-99) mg/dL POC Glucose (mg/dL) 101 H 140 H 158 H (75-99) mg/dL 03/27/20 03/27/20 03/27/20 Range/Units 04:17 04:17 06:45 RBC 3.63 L (4.30-5.90) m/uL Hgb 10.6 L (13.0-17.5) gm/dL Hct 31.4 L (39.0-53.0) % Sodium 133 L (137-145) mmol/L Glucose 114 H (74-99) mg/dL POC Glucose (mg/dL) 124 H (75-99) mg/dL - Imaging and Cardiology Chest x-ray: image reviewed Assessment and Plan Assessment: 1. Coronary artery disease, status post four-vessel CABG 2. Hyperlipidemia 3. BPH 4. Lifelong nonsmoker 5. Father with history of aortic aneurysm 6. Both grandfathers with coronary artery diagnosis in their early 50s Plan: 1. Continue aspirin, statin, Plavix, beta april therapy. 2. Encourage continued incentive spirometry use. Bronchodilators per pulmonology 3. Increase activity, ambulate as tolerated. PT/OT/cardiac rehab following. 4. Continue Norvasc for radial artery spasm. Do not discontinue CCB without discussing with cardiac surgery 5. Will monitor daily labs and x-rays. Electrolyte replacement per protocol. 6. GI/DVT prophylaxis 7. Pain control with current medication regimen 8. Insulin management per primary care services. Patient is not diabetic, hemoglobin A1c 6.2% 9. Discharge planning in progress. Anticipate discharge to home with home care this afternoon 10. More recommendations to follow Time with Patient: Greater than 30
--- NOTE | 2020-03-27 08:31 | XR ---
EXAMINATION TYPE: XR chest 2V DATE OF EXAM: 03/27/2020 COMPARISON: 03/26/2020 HISTORY: 60 year-old male post cardiac surgery TECHNIQUE: PA and lateral views FINDINGS: Median sternotomy wires are present with post-CABG clips in the mediastinum. Heart upper limits of no rmal in size. Prominent strandy bibasilar opacities persist. Possible trace left effusion. Not signif icantly changed. IMPRESSION: Bands of bibasilar atelectasis are similar. Possible trace left effusion.
[2020-03-27] MEDS: PANTOPRAZOLE 40 MG TABLET PO SCH (08:55)
[2020-03-27] MEDS: METOPROLOL TARTRATE 50 MG TAB PO SCH (08:55)
[2020-03-27] MEDS: amLODIPine 5 MG TAB PO SCH (08:55)
[2020-03-27] MEDS: ATORVASTATIN 40 MG TAB PO SCH (08:55)
[2020-03-27] MEDS: CLOPIDOGREL 75 MG TAB PO SCH (08:55)
[2020-03-27] MEDS: ASCORBIC ACID 500 MG TAB PO SCH (08:55)
[2020-03-27] MEDS: ASPIRIN 325 MG TAB PO SCH (08:55)
[2020-03-27] MEDS: CHOLECALCIFEROL 1,000 UNIT TAB PO SCH (08:56)
[2020-03-27] MEDS: IPRATROPIUM-ALBUTEROL 3 ML NEB INHALATION SCH ×3 (09:04→16:02)
[2020-03-27 09:15] VITALS: PULSE 95
--- NOTE | 2020-03-27 11:25 | P.DS ---
Providers Date of admission: 03/18/20 11:51 Expected date of discharge: 03/27/20 Attending physician: Teddy Hdez Consults: 03/18/20 11:53 Consult Physician Routine Consulting Provider: Teddy Hdez Consult Reason/Comments: cabg Do you want consulting provider notified?: Already Contacted 03/19/20 06:10 Consult Physician Routine Consulting Provider: Fany Ortiz Consult Reason/Comments: preop cabg Do you want consulting provider notified?: Yes, Notify in am 03/21/20 11:48 Consult to Anesthesia Routine Consulting Provider: Anesthesia,Services Consult Reason/Comments: Cardiac Surgery Pre-Op 03/23/20 15:11 Consult Physician Routine Consulting Provider: Abbi Zimmer Consult Reason/Comments: med mgmt; Madison Nirav patient Do you want consulting provider notified?: Yes Consult Physician Routine Consulting Provider: Gerhard Moran Consult Reason/Comments: Science 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 Coronary artery disease 2. Hyperlipidemia 3. BPH 4. Lifelong nonsmoker 5. Father with history of aortic aneurysm 6. Both grandfathers diagnosed with heart disease in their early 50s PRINCIPAL PROCEDURE: 1. Coronary artery bypass graft 4 vessels, left internal mammary artery to the left anterior descending artery, left radial artery to the obtuse marginal artery, reverse saphenous vein graft to the diagonal artery, reverse of his vein graft to the posterior descending artery 2. Endoscopic harvesting of the left greater saphenous vein 3. Endoscopic harvesting of the left radial artery 4. Ligation of the left atrial appendage using a 35 mm AtriClip 5. Epi-aortic ultrasound 6. Intraoperative transesophageal echocardiogram HISTORY OF PRESENT ILLNESS: This is a 60-year-old active gentleman who follows on an outpatient basis with Dr. River. He had been experiencing exertional chest pain and shortness of breath over the previous 2 months, mostly exhibited while working and not too bad at home. He denied any chest pain or should his of breath at rest. He underwent stress echocardiogram which terminated at 6 minutes due to chest discomfort as well as EKG changes suggestive stress-induced ischemia involving the anteroapical and anteroseptal wall. He was recommended to undergo heart catheterization by Dr. Bush which demonstrated triple-vessel coronary artery disease with proximal LAD stenosis 99%, circumflex stenosis 90%, and RCA stenosis 70%. He was admitted to the hospital with consultation placed to Dr. Hdez from cardiothoracic surgery. He was recommended to undergo surgical myocardial revascularization. The usual perioperative course was discussed in detail with the patient and his family, all risks and benefits were explained, all questions were answered, and consent was obtained to proceed with surgery. The patient was kept inpatient due to the nature of his disease process. HOSPITAL COURSE: The patient was brought to the preoperative area on 03/23/2020, prepared in the usual fashion, and subsequently taken to the operating room where Dr. Hdez performed a four-vessel CABG. Upon completion of surgery the patient was transferred to the cardiovascular intensive care unit where he was recovered, monitored hemodynamically, and where he progressed to cardiac rehabilitation phase 1. He was extubated, all lines, tubes, and drips were discontinued when appropriate, and transfer orders were placed for 3 S. cardiac stepdown unit, however there was no bed availability and the patient remained on ICU as a stepdown patient until discharge. His oxygen was titrated down, he continued to work with physical and occupational therapy, he was tolerating oral diet, his pain was controlled, and he was ready to be discharged to home with [facility] care on postoperative day #4. He received written and verbal instruction regarding his medications, activity restrictions, signs and symptoms requiring physician notification, and follow-up appointments. COMPLICATIONS: The patient experienced no postoperative complications. Patient Condition at Discharge: Stable Plan - Discharge Summary Discharge Rx Participant: Yes New Discharge Prescriptions: New Aspirin 325 mg PO DAILY #30 tab diphenhydrAMINE [Benadryl] 25 mg PO HS PRN cap PRN Reason: Insomnia Furosemide [Lasix] 20 mg PO DAILY #3 tab Atorvastatin [Lipitor] 40 mg PO DAILY #30 tab Metoprolol Tartrate [Lopressor] 50 mg PO BID #30 tab Melatonin 5 mg PO HS tablet amLODIPine [Norvasc] 5 mg PO DAILY #30 tab Triamcinolone 0.1% Paste [Oralone 0.1% Paste] 1 applic MUCOUS MEM HS applic Clopidogrel [Plavix] 75 mg PO DAILY #30 tab Pantoprazole [Protonix] 40 mg PO AC-BRKFST #30 tablet. Sennosidepaul-Docusate Sodium [Senokot-S] 2 each PO HS PRN #14 tab PRN Reason: Constipation Acetaminophen Tab [Tylenol] 1,000 mg PO Q6HR PRN #0 tab PRN Reason: Fever And/ Or Pain Continue Cholecalciferol [Vitamin D3 (25 Mcg = 1000 Iu)] 5,000 unit PO DAILY Ascorbic Acid [Vitamin C] 500 mg PO DAILY Ubidecarenone [Co Q-10] 100 mg PO DAILY Tamsulosin HCl [Flomax] 0.4 mg PO HS Ell[place]-3 Fatty Acids/Fish Oil [Fish Oil 1,000 mg Softgel] 1 each PO DAILY Discontinued Famotidine [Pepcid] 20 mg PO BID Metoprolol Tartrate [Lopressor] 25 mg PO BID Atorvastatin [Lipitor] 10 mg PO HS Aspirin 81 mg PO DAILY Discharge Medication List Ascorbic Acid [Vitamin C] 500 mg PO DAILY 03/17/20 [History] Cholecalciferol [Vitamin D3 (25 Mcg = 1000 Iu)] 5,000 unit PO DAILY 03/17/20 [History] Ellington-3 Fatty Acids/Fish Oil [Fish Oil 1,000 mg Softgel] 1 each PO DAILY 03/17/20 [History] Tamsulosin HCl [Flomax] 0.4 mg PO HS 03/17/20 [History] Ubidecarenone [Co Q-10] 100 mg PO DAILY 03/17/20 [History] Acetaminophen Tab [Tylenol] 1,000 mg PO Q6HR PRN #0 tab 03/27/20 [Rx] Aspirin 325 mg PO DAILY #30 tab 03/27/20 [Rx] Atorvastatin [Lipitor] 40 mg PO DAILY #30 tab 03/27/20 [Rx] Clopidogrel [Plavix] 75 mg PO DAILY #30 tab 03/27/20 [Rx] Furosemide [Lasix] 20 mg PO DAILY #3 tab 03/27/20 [Rx] Melatonin 5 mg PO HS tablet 03/27/20 [Rx] Metoprolol Tartrate [Lopressor] 50 mg PO BID #30 tab 03/27/20 [Rx] Pantoprazole [Protonix] 40 mg PO AC-BRKFST #30 tablet.dr 03/27/20 [Rx] Sennosides-Docusate Sodium [Senokot-S] 2 each PO HS PRN #14 tab 03/27/20 [Rx] Triamcinolone 0.1% Paste [Oralone 0.1% Paste] 1 applic MUCOUS MEM HS applic 03/27/20 [Rx] amLODIPine [Norvasc] 5 mg PO DAILY #30 tab 03/27/20 [Rx] diphenhydrAMINE [Benadryl] 25 mg PO HS PRN cap 03/27/20 [Rx] Follow up Appointment(s)/Referral(s): Gilma Gar NPC [Nurse Practitioner] - 04/01/20 1:45 pm (In the surgeons office in [facility] which is behind the hospital, [address], [place]) Wen Bush MD [STAFF PHYSICIAN] - 2 Weeks (Office will call with appointment) [facility] [NON-STAFF] - 4 Weeks (You will receive a phone call for evaluation for cardiac rehab approximately 4-6 weeks after surgery) Madison River DO [REFERRING] - 04/08/20 10:00 am Karis Monreal NPC [Nurse Practitioner] - 04/22/20 3:00 pm [facility], [NON-STAFF] - 1 Week Teddy Hdez MD [Primary Care Provider] - 04/19/20 9:15 am Ambulatory/Diagnostic Orders: Complete Blood Count w/diff [LAB.AMB] Time Frame: 3 Days, Location: None Selected Comprehensive Metabolic Panel [LAB.AMB] Time Frame: 3 Days, Location: None Selected Activity/Diet/Wound Care/Special Instructions: DISCHARGE INSTRUCTIONS: 1. No driving for 4 weeks, or until physician gives their ok. 2. The patient should sleep in their own bed, no medical bed needed. 3. Stairs are not an issue. If the bedroom is upstairs, it is advised that the patient go up at night and down in the morning for the first week. Go slowly, using handrail and take 1 step at a time. 4. JAY hose are to be worn for 30 days or until physician discontinues. 5. Heart hugger is to be worn 100% of the time until physician discontinues.(except when showering) 6. No lifting, pushing, or pulling more than 10 pounds for 12 weeks. The physician will advise of any restriction changes. 7. The patient is expected to continue the prescribed walking program. 8. Continue pain control per as needed orders. 9. Continue with incentive spirometry and splinting/heart hugger until otherwise directed by the physician. 10. Must shower daily using liquid antibacterial soap and a separate white washcloth for each individual incision. 11. Routine sternal incision care. No powders, lotions, ointments on incisions. No dressings are necessary on incisions unless they are draining. Dermabond tape is to remain on sternal incision until surgeon follow-up. 12. Please call surgeon/GAME PROGRAMMER for temp greater than 101 F or purulent drainage from incisions. 13. All prescriptions given by surgeon for 30 days. Refills need to be filled through pourer crane ladle/primary care physician. 14. A Red armband has been placed on the patient. It should be worn for 30 days post surgery and will be removed by the cardiac surgeons. If an ER visit is necessary, please make sure the number on the Red armband is called. 15. You have been referred to and are expected to begin Cardiac Rehab in approximately 4-6 weeks. HOME HEALTH SERVICES TO PROVIDE: RN SKILLED HOME CARE SERVICES FOR POST-OP SURGICAL PATIENTS WITH THE FOLLOWING: Coronary Artery Bypass Surgery (CABG), Mitral Valve Replacement/Repair ( MVR), Aortic Valve Replacement/Repair (AVR) RN TO CONTINUE EDUCATION FROM ``ROAD TO A HEALTH HEART PATIENT EDUCATION MANUAL (GIVEN TO PATIENT IN THE HOSPITAL) MEDICATION RECONCILIATION WITH EDUCATION NEEDED ON FIRST HOME VISIT EMPHASIZE IMPORTANCE OF WEARING BREAST SUPPORT/HEART HUGGER ENCOURAGE USE OF INCENTIVE SPIROMETER 10 X EVERY HOUR WHILE AWAKE ENCOURAGE UTILIZATION OF LOWER EXTREMITY COMPRESSION STOCKINGS/JAY HOSE and ELEVATE LEGS ABOVE LEVEL OF HEART WHILE AT REST. ENCOURAGE AMBULATION 3-5x/day INCREASING TOLERATES, WHILE AVOIDING EXTREMES IN TEMPERATURE FREQUENCY: RN TO OPEN THE PATIENT WITHIN 24 HOURS OF DISCHARGE FROM THE HOSPITAL WITH TELEHEALTH INSTALLED AT [facility] [place], RN TO VISIT 2-3 X A WEEK FOR 4 WEEKS ESTABLISHED BY PATIENT NEEDS. LABORATORY: CBC, CMP TO BE DRAWN ON THE THIRD DAY HOME, (RAN STAT) FAX RESULTS TO [phone]. TELEHEALTH PARAMETERS: WEIGHT: NOTIFY MD OF WEIGHT GAIN OF 2 LBS IN 24 HOURS OR 5 LBS IN ONE WEEK HR: NOTIFY MD OF HR <55 BPM OR HR>100 BPM BP: NOTIFY MD IF BP <90/55 OR BP>140/100 O2 SAT: NOTIFY MD IF PO2<93% ON ROOM AIR SEND TELEHEALTH REPORT TO MEDICAL BILLER AND CARDIOVASCULAR SURGEON THE FIRST WEEK OF CARE AND THEN BI-WEEKLY. PLEASE ADDITIONALLY COMMUNICATE ANY ABNORMALS AND NEW FINDINGS TO THE SURGEONS OFFICE. For any questions or concerns please call pattern hanger Gilma @ or [place] @ Discharge Disposition: HOME WITH HOME HEALTH SERVICES
[2020-03-27 11:41] LABS: Glucose,Whole Blood 116 mg/dL (75-99)
--- NOTE | 2020-03-27 11:43 | PN ---
PROGRESS NOTE Raúl is a 60-year-old gentleman with a history of coronary artery disease status post CABG, who is doing well and is free of cardiac symptoms. He remains in sinus rhythm. Hemodynamically stable and ready to be discharged home. The chest x-ray did not reveal any congestion and he does not have any shortness of breath. PHYSICAL EXAMINATION: On exam heart rate is 75 beats per minute, blood pressure is 118/69, respiratory rate is 18. There is no jugular venous distention. O2 saturation is 98% on room air. Chest exam reveals good air entry bilaterally. Heart exam reveals first and second heart sounds. No gallop. Abdomen is soft. Exam of extremities did not reveal any edema. Peripheral pulses are felt. MEDICATIONS: Patient is currently on aspirin, Lipitor, Plavix, metoprolol 50 b.i.d. ASSESSMENT: Multivessel coronary artery disease status post coronary artery bypass grafting. PLAN: The patient is doing well, ready to be discharged home. Follow up with Dr. Bush in the office. MMODL / IJN: [id number] /
--- NOTE | 2020-03-27 11:44 | P.PN ---
Subjective Progress Note Date: 03/27/20 Principal diagnosis: Status post CABG. Postoperative day #4 This is a very pleasant 60-year-old gentleman who follows with Dr. Medrano as his primary care provider. He has a history of hyperlipidemia. He had been developing exertional chest discomfort and a stress echocardiogram revealed anteroseptal and anterior apical hypokinesis. He was brought in yesterday for an elective cardiac catheterization and was found to have a 99% stenosis of the LAD, 94% stenosis of the circumflex and 70% stenosis of the proximal RCA, should be elevated with an area of 70-80%. Ejection fraction 55-60%. He has been seen and evaluated by cardiothoracic surgery and the plan is for coronary revascularization early next week. Currently he is seen in consultation on the selective care unit. He is awake and alert in no acute distress. Resting quite comfortably in bed. Denies any chest discomfort currently. No shortness of breath, cough or congestion. He is a lifelong nonsmoker. He is maintaining O2 saturations in the mid 90s on room air. Pulmonary function testing pending. He's afebrile. Hemodynamically stable. White count 9.5. Hemoglobin 14.8. Sodium 137. Potassium 4.4. Creatinine 0.92. Ashley virus not detected. He remains on a heparin drip. The patient is seen today 03/20/2020 in follow-up on the selective care unit. He is currently sitting up in a chair at the bedside. Awake and alert in no acute distress. Maintaining good O2 saturation 90s on room air. No shortness of breath, cough or congestion. No chest pain, palpitations lightheadedness or dizziness. He remains on heparin drip. Nitropaste in place. White count 8.9. Hemoglobin 15.2. Sodium 138. Potassium 4.3. Creatinine 0.92. The patient is seen today 03/21/2020 in follow-up on the selective care unit. He remains awake and alert in no acute distress. He remains on room air with good O2 saturations in the 90s. No chest discomfort currently. One brief episode of mild chest discomfort while ambulating yesterday. Computed tomography scan of the chest yesterday revealed no acute pulmonary process. White count 7.8. Hemoglobin 14.2. Sodium 138. Potassium 4.2. Creatinine 0.97 . He remains on heparin drip. On 03/22/2020 patient seen in follow-up on selective care unit, he is awake and alert, in no acute distress, resting comfortably in bed, breathing is comfortable, room air pulse ox of 98%, he states that times he'll have mild chest discomfort, otherwise no chest pain, afebrile, remains on heparin infusion, and 0.9 normal saline at a rate of 20 ML per hour, denies any difficulty breathing, chest CT was obtained on 03/19/2020 showing no acute pulmonary process. Today's labs have been reviewed, showing CBC within normal limits, electrolytes and renal profile within normal limits On 03/23/2020 patient is seen in intensive care unit, in the postoperative period, status post four-vessel coronary artery bypass grafting. He is sedated, intubated, on mechanical ventilator, on SIMV mode of ventilation, with a rate of 12, tidal blood 600, FiO2 is 100% and PEEP of 5, the rate was increased to 14 breaths per minute upon arrival to the ICU, postoperative blood gases pending, chest x-rays pending. Patient had left radial artery graft. Hemodynamically she is stable, did received Cell Saver and the OR. Mediastinal chest tube with 15 mL of serosanguineous output, left and right pleural chest tubes are Y- connected together, with only 5 mL of sanguinous output. Left radial MELANIE drain with minimal amount of single vessel output, compressed and draining. No vaso pressors, point tenderness and a rate of 50 ML per hour, Cardizem infusion at 5 mg per hour, Diprivan infusion per protocol. Patient is being paced via epicardial AV wires, in AAI mode with a rate of 60 BPM, underlying rhythm is sinus bradycardia with a rate of 40 BPM. PA pressures 29/15, cardiac output is 5.1 and cardiac index is 2.3. Reevaluated today on 03/24/20, patient is status post CABG, postoperative day #1. He remains in the ICU, patient had a four-vessel CABG. He is on oxygen at 2 L 96% O2 saturation. He is also on Cardizem at 5 mg per hour. And IV fluid at 50 mL per hour. Insulin 1 unit per hour. His hemodynamics showed a pulmonary artery pressure 18/5 CVP of 2 cardiac output of 7 cardiac index of 3.2. Patient was extubated yesterday at 19:43, tolerated the extubation quite well. Chest x- ray showed mostly minimal postoperative atelectasis. No significant infiltrate or edema. Patient continues to have right internal jugular catheter and Cordis. And he has a right radial arterial line, left and right pleural chest tubes noted. Reevaluated today on 03/25/20, patient is status post CABG, postoperative day #2. Remains in the ICU, asymptomatic, presently on room air, achieving 750 ML with incentive spirometry. Chest tubes are out. Patient is hemodynamically stable, not requiring any inotropes or any pressors, he is in normal sinus rhythm. Chest x-ray showed left basilar atelectasis, expected. Pain seems to be fairly well controlled. Patient was ambulatory in the hallway yesterday with physical therapy. No major issues overnight Reevaluated today on 03/26/20, patient remains in the ICU, he is doing extremely well, his postoperative day #3, patient is on room air, hemoglobin is 8.6, chest x-ray minimal left basilar atelectasis as expected. Pain seems to be fairly well controlled, patient is ambulating, no hemodynamic issues over the last couple of days. Hence patient may be discharged home today. Or possibly tomorrow Patient was seen on 03/27/20, patient remains in the ICU, doing extremely well, his postoperative day #4. Doing well, asymptomatic, chest x-ray showed is basically unchanged. His labs were reviewed, patient is active and ambulating, plans to discharge the patient home today in progress Objective - Vital Signs Vital signs: Vital Signs Temp 98.6 F 03/27/20 04:00 Pulse 95 03/27/20 09:15 Resp 17 03/27/20 04:00 BP 118/69 03/27/20 04:00 Pulse Ox 98 03/27/20 04:00 Intake & Output 03/26/20 03/27/20 03/27/20 18:59 06:59 18:59 Intake Total 720 120 Output Total 650 600 Balance 70 -600 120 Weight 102.1 kg 99.7 kg Intake: Oral 720 120 Output: Urine 650 600 Other: Voiding Method Urinal Urinal # Voids 1 # Bowel Movements 1 ABP, PAP, CO, CI - Last Documented Arterial Blood Pressure 149/50 Pulmonary Artery Pressure 33/10 Cardiac Output 7 Cardiac Index 3.2 - Exam Physical Exam: Revealed a 60-year-old white male in no distress. Head: Atraumatic, normocephalic. Right IJ catheter and Cordis noted. HEENT:[Neck is supple.] [No neck masses.] [No thyromegaly.] [No JVD.] Chest: Lungs sounds diminished bilaterally. No crackles or rhonchi or wheezes. Cardiac Exam: [Normal S1 and S2, no S3 gallop, no murmur.. Abdomen: [Soft, nontender, no megaly, no rebound, no guarding, normal bowel sounds.] Extremities: [No clubbing, no edema, no cyanosis.]Sternum stable. Neurological Exam: [No focal neurologic deficit.] Alert and oriented 3. Psychiatric: Normal mood affect and normal mental status examination. Skin: warm and dry with evidence of good perfusion. Anterior chest incision well approximated and covered with dry intact dressing. - Labs CBC & Chem 7: 03/27/20 04:17 03/27/20 04:17 Labs: Abnormal Lab Results - Last 24 Hours (Table) 03/26/20 03/26/20 03/26/20 Range/Units 12:40 16:53 20:21 RBC (4.30-5.90) m/uL Hgb (13.0-17.5) gm/dL Hct (39.0-53.0) % Sodium (137-145) mmol/L Glucose (74-99) mg/dL POC Glucose (mg/dL) 101 H 140 H 158 H (75-99) mg/dL 03/27/20 03/27/20 03/27/20 Range/Units 04:17 04:17 06:45 RBC 3.63 L (4.30-5.90) m/uL Hgb 10.6 L (13.0-17.5) gm/dL Hct 31.4 L (39.0-53.0) % Sodium 133 L (137-145) mmol/L Glucose 114 H (74-99) mg/dL POC Glucose (mg/dL) 124 H (75-99) mg/dL Assessment and Plan Assessment: Impression: Status post four-vessel CABG. Postoperative day #4 Lifelong nonsmoker. Family history of premature coronary artery disease. Dyslipidemia. Recommendation: Continue beta april statin Plavix and aspirin. Continue to ambulate. Continue GI and DVT prophylaxis. Agree with discharge planning today Continue incentive spirometry. Time with Patient: Less than 30
--- NOTE | 2020-03-27 18:26 | P.PN ---
Subjective This is this is a pleasant 60 years old male with past medical history of hyperlipidemia, GERD. Presented on 03/18. Patient was complaining of from chest pain and dyspnea, he underwent cardiac cath by Dr. Dr. Bush showing severe triple vessel coronary artery disease. He underwent extensive workup by cardiothoracic surgery. His status post coronary artery bypass grafting of 4 vessels on 03/23. Patient remains in the ICU for close monitoring and management. Medical consult has been requested for medical management today. Patient sitting in bed comfortable. Not In distress, he has pain at the chest surgical site was some stomach upset, no nausea vomiting, he is eating little bit. He is hemodynamically stable. Labs reviewed His currently on small dose of insulin drip at 1 unit per hour. Also his on Cardizem drip. He has mild leukocytosis of 11.8 K. Hemoglobin 12.4. Platelets 145K. Glucose is controlled. BMP and liver enzymes were unremarkable. UA is negative. FOBT is negative. Hepatitis panel is negative. Rotavirus is not detected. Chest x-ray: Postoperative changes of CABG. CT of the chest no acute process. Carotid Doppler is negative for significant stenosis. Echocardiogram showing ejection fraction between 55 and 60%, no significant valvular heart disease. 03/25/20 Patient sitting in chair more comfortable today, he has less chest pain compared to yesterday and he rated as 5/10 in severity but this more satisfied with his severity compared to yesterday. He has this stomach upset and he ate some apple sauce this morning. Insulin and amiodarone drip are off this morning. He has a right chest tube which can be taken off today most likely per cardiothoracic surgery team patient is on aspirin 325 mg and Plavix and subcutaneous heparin. 03/27/20 Patient remains in the ICU, he sitting comfortable in chair, no chest pain and no epigastric discomfort Hemodynamically stable and labs reviewed. Patient is counseled about the importance of adherence to therapy including aspirin and Plavix and patient verbalized understanding and acceptance. Patient was instructed to follow up with his PCP home he says his Dr. Gastelum whenever he is discharged within 1 week and he verbalized understanding and acceptance. Objective - Vital Signs Vital signs: Vital Signs Temp 98.6 F 03/27/20 04:00 Pulse 95 03/27/20 09:15 Resp 17 03/27/20 04:00 BP 118/69 03/27/20 04:00 Pulse Ox 98 03/27/20 04:00 Intake & Output 03/26/20 03/27/20 03/27/20 18:59 06:59 18:59 Intake Total 720 360 Output Total 726 342 7540 Balance 70 -600 -740 Weight 102.1 kg 99.7 kg Intake: Oral 720 360 Output: Urine 886 [id number] Other: Voiding Method Urinal Urinal Urinal # Voids 1 # Bowel Movements 1 ABP, PAP, CO, CI - Last Documented Arterial Blood Pressure 149/50 Pulmonary Artery Pressure 33/10 Cardiac Output 7 Cardiac Index 3.2 - Exam GENERAL: The patient is alert and oriented x3, not in any acute distress. Well developed, well nourished. HEENT: Pupils are round and equally reacting to light. EOMI. No scleral icterus. No conjunctival pallor. Normocephalic, atraumatic. No pharyngeal erythema. No thyromegaly. -CARDIOVASCULAR: S1 and S2 present. No murmurs, rubs, or gallops. Surgical wound with a dressing in place, rest of exam is deferred to surgical team PULMONARY: Chest is clear to auscultation, no wheezing or crackles. ABDOMEN: Soft, nontender, nondistended, normoactive bowel sounds. No palpable organomegaly. MUSCULOSKELETAL: No joint swelling or deformity. EXTREMITIES: No cyanosis, clubbing, or pedal edema. NEUROLOGICAL: Gross neurological examination did not reveal any focal deficits. SKIN: No rashes. No petechiae - Labs CBC & Chem 7: 03/27/20 04:17 03/27/20 04:17 Labs: Abnormal Lab Results - Last 24 Hours (Table) 03/26/20 03/27/20 03/27/20 Range/Units 20:21 04:17 04:17 RBC 3.63 L (4.30-5.90) m/uL Hgb 10.6 L (13.0-17.5) gm/dL Hct 31.4 L (39.0-53.0) % Sodium 133 L (137-145) mmol/L Glucose 114 H (74-99) mg/dL POC Glucose (mg/dL) 158 H (75-99) mg/dL 03/27/20 03/27/20 Range/Units 06:45 11:39 RBC (4.30-5.90) m/uL Hgb (13.0-17.5) gm/dL Hct (39.0-53.0) % Sodium (137-145) mmol/L Glucose (74-99) mg/dL POC Glucose (mg/dL) 124 H 116 H (75-99) mg/dL Assessment and Plan Assessment: Severe triple vessel coronary artery disease status post CABG Hyperlipidemia Prediabetes with hemoglobin A1c 6.2% Plan: This is a pleasant 60 years old male STATUS post CABG. Continue with pain management. Continue with incentive spirometry. Labs and medication were reviewed.. Continue same treatment. Continue with symptomatic treatment. Resume home medication. Monitor lytes and vitals. DVT and GI prophylaxis. Further recommendations of the clinical course of the pat ient DVT prophylaxis: Subcutaneous heparin GI Prophylaxis: Ppi
== END 2020-03-27 18:00 | disposition home health service (06) | DRG 234 ==
LOC: CATHCVL 09:18 → 3SCARD 11:46 → CATHCVL 12:12 → 3SCARD 03-20 19:59 → 3NCARDOBS 03-20 19:59 → 2SICU 03-23 08:22
PROVIDERS: ADMIT Surgery; ATTEND Surgery
PROC: B2151ZZ Fluoroscopy of Left Heart using Low Osmolar Contrast (ICD-10-PCS; 2020-03-18)
PROC: B2111ZZ Fluoroscopy of Multiple Coronary Arteries using Low Osmolar Contrast (ICD-10-PCS; 2020-03-18)
PROC: 4A023N7 Measurement of Cardiac Sampling and Pressure, Left Heart, Percutaneous Approach (ICD-10-PCS; 2020-03-18)
PROC: B54DZZZ Ultrasonography of Bilateral Lower Extremity Veins (ICD-10-PCS; 2020-03-18)
PROC: 06BQ4ZZ Excision of Left Saphenous Vein, Percutaneous Endoscopic Approach (ICD-10-PCS; principal; 2020-03-23 08:00)
PROC: 02100AW Bypass Coronary Artery, One Artery from Aorta with Autologous Arterial Tissue, Open Approach (ICD-10-PCS; principal; 2020-03-23 08:00)
PROC: B24BZZ4 Ultrasonography of Heart with Aorta, Transesophageal (ICD-10-PCS; principal; 2020-03-23 08:00)
PROC: 5A1221Z Performance of Cardiac Output, Continuous (ICD-10-PCS; principal; 2020-03-23 08:00)
PROC: 03BC4ZZ Excision of Left Radial Artery, Percutaneous Endoscopic Approach (ICD-10-PCS; principal; 2020-03-23 08:00)
PROC: 5A1223Z Performance of Cardiac Pacing, Continuous (ICD-10-PCS; principal; 2020-03-23 08:00)
PROC: 02100Z9 Bypass Coronary Artery, One Artery from Left Internal Mammary, Open Approach (ICD-10-PCS; principal; 2020-03-23 08:00)
PROC: 021109W Bypass Coronary Artery, Two Arteries from Aorta with Autologous Venous Tissue, Open Approach (ICD-10-PCS; principal; 2020-03-23 08:00)
PROC: 02L70CK Occlusion of Left Atrial Appendage with Extraluminal Device, Open Approach (ICD-10-PCS; principal; 2020-03-23 08:00)
DX: I25.119 Atherosclerotic heart disease of native coronary artery with unspecified angina pectoris (principal); J98.11 Atelectasis; R00.1 Bradycardia, unspecified; D72.829 Elevated white blood cell count, unspecified; E78.5 Hyperlipidemia, unspecified; K21.9 Gastro-esophageal reflux disease without esophagitis; N40.0 Benign prostatic hyperplasia without lower urinary tract symptoms; R73.03 Prediabetes; R01.1 Cardiac murmur, unspecified; K30 Functional dyspepsia; R11.0 Nausea; Z20.828 Contact with and (suspected) exposure to other viral communicable diseases; Z79.82 Long term (current) use of aspirin; Z79.899 Other long term (current) drug therapy; Z85.828 Personal history of other malignant neoplasm of skin; Z90.49 Acquired absence of other specified parts of digestive tract; Z98.890 Other specified postprocedural states; Z88.1 Allergy status to other antibiotic agents; Z88.2 Allergy status to sulfonamides; Z80.0 Family history of malignant neoplasm of digestive organs; Z82.49 Family history of ischemic heart disease and other diseases of the circulatory system; Z82.3 Family history of stroke
CPT/HCPCS: 71045; 71046; 71250; 80048; 80053; 80061; 80074; 81003; 82272; 82330; 82805; 83036; 83735; 84443; 85025; 85027; 85520; 85610; 85730; 86850; 86891; 86900; 86901; 86920; 87070; 93306; 93458; 93880; 93922; 93923; 93930; 93970; 94002; 94150; 94640

== ENCOUNTER → 2020-04-28 | Outpatient (CLI) | payer OTHER ==
--- NOTE | 2020-04-28 12:10 | XR ---
EXAMINATION TYPE: XR chest 2V DATE OF EXAM: 04/28/2020 COMPARISON: 03/27/2020 HISTORY: Shortness of breath TECHNIQUE: Frontal and lateral views of the chest are obtained. FINDINGS: Scattered senescent parenchymal changes noted. Hyperinflation compatible with COPD. No evidence for infiltrate. Basilar atelectasis noted. Improved from prior study. Heart size is stable. Mediastinal structures are stable and grossly unremarkable. No evidence for hilar prominence. Degenerative changes dorsal spine. IMPRESSION: 1. No evidence for acute pulmonary disease.
== END | disposition home or self-care (01) ==
LOC: RADXRMAIN 11:53
PROVIDERS: ATTEND Surgery
DX: R07.9 Chest pain, unspecified (principal); Z95.1 Presence of aortocoronary bypass graft
CPT/HCPCS: 71046

== ENCOUNTER → 2020-05-11 | Outpatient (CLI) | payer OTHER ==
[2020-05-11 11:33] LABS: Basophils # (A) 0.2 k/uL (0-0.2); Basophils % (A) 2 %; Eosinophils # (A) 0.9 k/uL (0-0.7); Eosinophils % (A) 11 %; HCT 42.7 % (39.0-53.0); HGB 13.9 gm/dL (13.0-17.5); Lymphocytes # (A) 1.7 k/uL (1.0-4.8); Lymphocytes % (A) 21 %; MCH 28.1 pg (25.0-35.0); MCHC 32.4 g/dL (31.0-37.0); MCV 86.7 fL (80.0-100.0); Mean Platelet Volume 6.6; Monocytes # (A) 0.6 k/uL (0-1.0); Monocytes % (A) 8 %; Neutrophils # (A) 4.5 k/uL (1.3-7.7); Neutrophils % (A) 56 %; Platelet Count 348 k/uL (150-450); RBC 4.93 m/uL (4.30-5.90); WBC 8.2 k/uL (3.8-10.6)
[2020-05-11 15:01] LABS: African American GFR (CKD) 106.5 (60.0-200.0); Albumin 4.1 g/dL (3.80-4.90); Albumin/Globulin Ratio 1.41 (1.60-3.17); Anion Gap 8.4 mmol/L (4.00-12.00); Calcium 9.9 mg/dL (8.7-10.3); Carbon Dioxide 27.6 mmol/L (21.6-31.8); Chol/HDL Ratio 3.83; Globulin 2.9 g/dL (1.6-3.3); LDL Cholesterol,Calculated 85.6 mg/dL (0.0-131.0); Non-African American GFR(CKD) 91.9 (60.0-200.0); Potassium 4.5 mmol/L (3.5-5.5); Total Bilirubin 0.4 mg/dL (0.2-1.2); VLDL Calculation 13.4 mg/dL (5.00-40.00)
== END | disposition home or self-care (01) ==
LOC: LABWHC1 10:23
PROVIDERS: ATTEND Internal Medicine Interventional Cardiology
DX: E78.2 Mixed hyperlipidemia (principal); I25.810 Atherosclerosis of coronary artery bypass graft(s) without angina pectoris; R42 Dizziness and giddiness
CPT/HCPCS: 36415; 80053; 80061; 85025

== ENCOUNTER → 2020-08-24 | Outpatient (CLI) | payer OTHER ==
[2020-08-24 15:20] LABS: African American GFR (CKD) 93.7 (60.0-200.0); Albumin 4.6 g/dL (3.80-4.90); Albumin/Globulin Ratio 2.09 (1.60-3.17); Calcium 9.5 mg/dL (8.7-10.3); Chol/HDL Ratio 2.61; Globulin 2.2 g/dL (1.6-3.3); LDL Cholesterol,Calculated 63.4 mg/dL (0.0-131.0); Non-African American GFR(CKD) 80.9 (60.0-200.0); Potassium 4.4 mmol/L (3.5-5.5); Total Bilirubin 0.5 mg/dL (0.2-1.2); Total Protein 6.8 g/dL (6.2-8.2); VLDL Calculation 10.6 mg/dL (5.00-40.00)
[2020-08-24 15:32] LABS: Prostate Specific Antigen 0.9 ng/mL (0.0-4.5)
== END | disposition home or self-care (01) ==
LOC: LABWHC1 09:48
PROVIDERS: ATTEND Internal Medicine Interventional Cardiology
DX: N40.1 Benign prostatic hyperplasia with lower urinary tract symptoms (principal); E78.2 Mixed hyperlipidemia
CPT/HCPCS: 36415; 80053; 80061; 84153

== ENCOUNTER → 2020-08-26 | Outpatient (CLI) | payer OTHER ==
[2020-08-26 19:13] LABS: Hemoglobin A1C 6.2 % (4.0-6.0)
== END | disposition home or self-care (01) ==
LOC: LABWHC1 09:33
PROVIDERS: ATTEND Family Medicine
DX: R73.9 Hyperglycemia, unspecified (principal)
CPT/HCPCS: 36415; 83036

== ENCOUNTER → 2020-10-06 | Outpatient (CLI) | payer OTHER ==
--- NOTE | 2020-10-08 05:50 | MR ---
EXAMINATION TYPE: MR shoulder RT wo con DATE OF EXAM: 10/06/2020 COMPARISON: None HISTORY: RT shoulder pain and restricted movement Multiplanar multiecho imaging of the right shoulder was performed with no contrast. There is small amount of fluid around the biceps tendon. Biceps tendon is intact. Subscapularis tendo n is intact. The glenoid russell appear intact. There is narrowing of the shoulder joint space with ben e spur formation. There is spurring at the AC joint. The supraspinatus tendon appears intact. There i s no retraction. I do not see evidence of a full-thickness tear. I see no focal bone destruction. The re is tiny amount of fluid in the subdeltoid bursa. IMPRESSION: No evidence of rotator cuff tear. There is minimal fluid in the subdeltoid bursa consistent with burs itis. There is some mild osteoarthritis of the glenohumeral joint. There is mild osteoarthritis of th e AC joint.
== END ==
LOC: RADMRIMAIN 10:48
PROVIDERS: ATTEND Orthopaedic Surgery
DX: M19.011 Primary osteoarthritis, right shoulder (principal)

== ENCOUNTER 2020-11-08 08:12 | Day surgery (SDC) | payer OTHER ==
[2020-11-01 12:32] VITALS: BMI 26.4
--- NOTE | 2020-11-07 12:13 | HP ---
HISTORY AND PHYSICAL REASON FOR ADMISSION: Surgery is scheduled for 11/08/2020 HISTORY OF PRESENT ILLNESS: Raúl Lang is a 60-year-old gentleman seen with symptomatic right shoulder adhesive capsulitis. We discussed options for treatment. He elected to proceed with manipulation under anesthesia with steroid injection. Consent was obtained. PAST MEDICAL HISTORY: Hyperlipidemia, hypertension, cardiovascular disease. PAST SURGICAL HISTORY: Coronary artery bypass surgery, cholecystectomy, arthroscopy. DAILY MEDICATIONS: Amlodipine, atorvastatin, Flomax, metoprolol. ALLERGIES: SULFA. SOCIAL HISTORY: He denies tobacco use. PHYSICAL EVALUATION OF THE RIGHT SHOULDER: Flexion is 90, abduction 60, external rotation is 10. He has tenderness along the anterolateral acromion and rotator cuff insertion. Impingement positive at 90. Drop- arm sign positive. Distal neurovascular exam is intact. RADIOGRAPHS: Right shoulder radiographs revealed a type 2 acromion as well as acromioclavicular joint osteoarthritis. MRI right shoulder revealed impingement along with acromioclavicular joint osteoarthritis. IMPRESSION: 1. Right shoulder adhesive capsulitis. 2. Right shoulder impingement. 3. Hypertension. 4. Hyperlipidemia. 5. Cardiovascular disease. PLAN: Manipulation under anesthesia right shoulder with steroid injection. Surgery scheduled for 11/08/2020. MMODL / IJN: [id number] /
[~2020-11-08 08:12] MED LIST changes: -ALPRAZolam 0.5 MG TAB PO PRN; -ASPIRIN 325 MG TAB PO STA; -ATORVASTATIN 80 MG TAB PO STA; +LACTATED RINGERS 1,000 ML IV SCH; +LIDOCAINE 1% (10MG/ML) FOR IV START INTRADERMA PRN; +MIDAZOLAM 2 MG/2 ML VIAL IV PRN; -NITROGLYCERIN SL TABS 0.4 MG TAB SUBLINGUAL PRN; -SODIUM CHLORIDE 0.9% 1,000 ML in EMPTY BAG 1 BAG IV ONE
[2020-11-08 08:38] VITALS: TEMP 97.7
[2020-11-08] MEDS ORDERED: ONDANSETRON 4 MG/2 ML VIAL ONE (09:07)
[2020-11-08] MEDS ORDERED: ONDANSETRON 4 MG/2 ML VIAL IVP ONE (09:11)
[2020-11-08] MEDS ORDERED: PROPOFOL 10 MG/ML 20 ML VIAL IV ONE (09:48)
[2020-11-08] MEDS ORDERED: fentaNYL (PF) 50 MCG/ML 2 ML AMP ONE (09:48)
[2020-11-08] MEDS ORDERED: MIDAZOLAM 2 MG/2 ML VIAL ONE (09:48)
[2020-11-08] MEDS ORDERED: HYDROmorphone 0.5 MG/0.5 ML SYRINGE IVP ONE ×4 (10:11→10:32)
[2020-11-08] MEDS ORDERED: KETOROLAC 15 MG/ML 1 ML VIAL IVP ONE (10:13)
[2020-11-08 11:00] VITALS: RESP 16
[2020-11-08] MEDS ORDERED: HYDROcodone/APAP 5-325MG 1 EACH TAB ONE (11:04)
[2020-11-08] MEDS ORDERED: HYDROcodone/APAP 5-325MG 1 EACH TAB PO ONE (11:05)
[2020-11-08 11:24] VITALS: BP 125/80; PULSE 61
--- NOTE | 2020-11-09 08:41 | P.OP ---
Date of Procedure: 11/08/20 Preoperative Diagnosis: Right shoulder adhesive capsulitis Postoperative Diagnosis: Right shoulder adhesive capsulitis Procedure(s) Performed: Manipulation under anesthesia right shoulder with steroid injection Anesthesia: MAC, local Surgeon: Bruno Toney Estimated Blood Loss (ml): 0 Pathology: none sent Condition: stable Disposition: PACU Indications for Procedure: 60-year-old gentleman seen with persistent right shoulder adhesive capsulitis. After treatment options were discussed, he elected to proceed with manipulation under anesthesia right shoulder with steroid injection. Operative Findings: See description of procedure Description of Procedure: The patient was taken to a monitored anesthesia area. The patient underwent IV sedation by the department of anesthesia. Once sufficient anesthesia was noted I performed a manipulation of the right shoulder achieving near full range of motion with audible tearing of the adhesions. The anterior aspect of the right shoulder was now prepped and draped in the normal sterile orthopedic fashion. I injected a mixture of 1 mL Depo-Medrol and 3 mL quarter percent plain Marcaine intra-articular under sterile technique. I now took the shoulder through range of motion again. I now applied a sterile Band-Aid. The patient was now awakened having tolerated procedure well.
== END 2020-11-08 11:52 | disposition home or self-care (01) ==
LOC: OR 08:12
PROVIDERS: ATTEND Orthopaedic Surgery
DX: M75.01 Adhesive capsulitis of right shoulder (principal); M25.811 Other specified joint disorders, right shoulder; I10 Essential (primary) hypertension; E78.2 Mixed hyperlipidemia; I25.10 Atherosclerotic heart disease of native coronary artery without angina pectoris; Z95.1 Presence of aortocoronary bypass graft; Z90.49 Acquired absence of other specified parts of digestive tract; Z98.890 Other specified postprocedural states; Z82.49 Family history of ischemic heart disease and other diseases of the circulatory system; Z79.899 Other long term (current) drug therapy; Z79.02 Long term (current) use of antithrombotics/antiplatelets; Z79.82 Long term (current) use of aspirin; M19.011 Primary osteoarthritis, right shoulder; Z88.2 Allergy status to sulfonamides
CPT/HCPCS: 23700; J2250; J2405; J3010; J1885; J2704; J1170

== ENCOUNTER → 2020-12-22 | Outpatient (CLI) | payer OTHER ==
--- NOTE | 2020-12-22 11:59 | BD ---
EXAMINATION TYPE: Axial Bone Density DATE OF EXAM: 12/22/2020 COMPARISON: NONE CLINICAL HISTORY: Postmenopausal female Height: 71.5 IN Weight: 194 LBS RISK FACTORS HISTORY OF: History of Wrist Fracture: RT WRIST KID Active: YES Diet low in dairy products/other sources of calcium: YES MEDICATIONS: Additional Medications: VIT D,ATORVASTATIN,CLOPIDIGRAL, METOPROLOL, PANTOPRAZOLE, AMLODIPINE, ASPIRIN , FLOMAX, EXETIMBE,COQ10, VIT C, OMEGA 3, EXAM MEASUREMENTS: Bone mineral densitometry was performed using the [employer]. Bone mineral density as measured about the Lumbar spine is: ----- L1-L4(G/cm2): 1.175 T Score Values are as follows: ----- L2: 0.2 ----- L3: 0.3 ----- L4: 0.0 ----- L1-L4: 0.0 Bone mineral density BASELINE Bone mineral density about the R hip (g/cm2): 0.862 Bone mineral density about the L hip (g/cm2): 0.887 T Score values are as follows: -----R Neck: -1.3 -----L Neck: -1.1 -----R Total: -0.2 -----L Total: 0.5 Bone mineral density BASELINE IMPRESSION: Osteopenia (T Score between -2.5 and -1). There is slightly increased risk of fracture and the patient may be considered for treatment. Re-Screen 2-5 years. NOTE: T-SCORE=SD OF THE YOUNG ADULT MEAN.
== END | disposition home or self-care (01) ==
LOC: RADBDWWP 07:58
PROVIDERS: ATTEND Family Medicine
DX: Z13.820 Encounter for screening for osteoporosis (principal); M85.89 Other specified disorders of bone density and structure, multiple sites
CPT/HCPCS: 77080

== ENCOUNTER 2022-02-17 06:10 | Day surgery (SDC) | payer OTHER ==
[2022-02-17] MEDS ORDERED: ALPRAZolam 0.5 MG TAB PO PRN (06:29)
[2022-02-17] MEDS ORDERED: ALPRAZolam 0.25 MG TAB PO PRN (06:29)
[2022-02-17] MEDS ORDERED: ATORVASTATIN 80 MG TAB PO STA (06:29)
[2022-02-17] MEDS ORDERED: HEPARIN SODIUM,PORCINE 10,000 UNIT in SODIUM CHLORIDE 0.9% 1,000 ML IRRIGATION PRN (06:29)
[2022-02-17] MEDS ORDERED: HEPARIN SODIUM,PORCINE 2,500 UNIT in SODIUM CHLORIDE 0.9% 250 ML IRRIGATION PRN (06:29)
[2022-02-17] MEDS ORDERED: NITROGLYCERIN SL TABS 0.4 MG TAB SUBLINGUAL PRN ×2 (06:29→09:20)
[2022-02-17] MEDS ORDERED: ASPIRIN 325 MG TAB PO STA (06:29)
[2022-02-17] MEDS: SODIUM CHLORIDE 0.9% 1,000 ML in EMPTY BAG 1 BAG IV SCH ×2 (06:54→19:56)
[2022-02-17] MEDS ORDERED: VERAPAMIL 2.5 MG/ML 2 ML AMP ONE (07:16)
[2022-02-17] MEDS ORDERED: HEPARIN SODIUM 1,000 UN/ML (10ML VL) ONE (07:16)
[2022-02-17] MEDS ORDERED: fentaNYL (PF) 50 MCG/ML 2 ML AMP ONE (07:45)
[2022-02-17] MEDS ORDERED: fentaNYL (PF) 50 MCG/ML 2 ML AMP IV ONE (07:47)
[2022-02-17] MEDS: MIDAZOLAM 2 MG/2 ML VIAL IV ONE ×2 (07:52→08:40)
[2022-02-17] MEDS ORDERED: LIDOCAINE 1% INJ 10MG/ML (30 ML VIAL-PF) SQ ONE (07:53)
[2022-02-17] MEDS ORDERED: IOPAMIDOL-370 125ML BTL INJ ONE (08:08)
[2022-02-17] MEDS ORDERED: HEPARIN SODIUM 1,000 UN/ML (10ML VL) IV ONE (08:16)
[2022-02-17] MEDS ORDERED: CLOPIDOGREL 75 MG TAB ONE (08:16)
[2022-02-17] MEDS ORDERED: CLOPIDOGREL 75 MG TAB PO ONE (08:19)
[2022-02-17] MEDS: NITROGLYCERIN 1000MCG/10ML SYRINGE INTRACORON ONE ×2 (08:26→08:44)
[2022-02-17] MEDS ORDERED: IOPAMIDOL-370 100ML BTL INJ ONE ×3 (08:40→09:08)
[2022-02-17] MEDS ORDERED: MAG HYDROX/AL HYDROX/SIMETH 30 ML CUP ONE (09:10)
[2022-02-17] MEDS ORDERED: MAG HYDROX/AL HYDROX/SIMETH 30 ML CUP PO ONE (09:11)
[2022-02-17] MEDS ORDERED: RX INFO: IV CONTRAST WAS GIVEN 1 EACH MISC MISCELLANE PRN (09:20)
[2022-02-17] MEDS ORDERED: ATROPINE SULFATE 0.1 MG/ML 10ML SYRINGE IV PRN (09:20)
[2022-02-17] MEDS ORDERED: ZOLPIDEM 5 MG TAB PO PRN (09:20)
[2022-02-17] MEDS ORDERED: MAG HYDROX/AL HYDROX/SIMETH 30 ML CUP PO PRN (09:20)
[2022-02-17] MEDS ORDERED: SODIUM CHLORIDE 0.9% 1,000 ML in EMPTY BAG 1 BAG IV SCH (09:30)
--- NOTE | 2022-02-17 09:36 | P.CARDCATH ---
Date of Procedure: 02/17/22 Description of Procedure: Cardiac Catheterization: The patient is a 62-year-old female with a known history of CAD, status post CABG in 2020 who has been complaining of exertional chest discomfort and had a positive MPI. Recommendations were made regarding cardiac catheterization, the risks and the complications were discussed with the patient who is in full understanding and agreement. 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 Using Xylocaine Anesthesia and Seldinger technique, a 6-Russian sheath was introduced in the right femoral artery . Subsequently, selective coronary angiography was performed using a 6-Russian 4 bend Moe catheter. Multiple views of the coronary artery including hemiaxial views were obtained. The right Moe catheter was used to cannulate the saphenous vein graft to the diagonal and the radial bypass to the obtuse marginal branch and CASTAÑEDA to the LAD. Images of the grafts were obtained. Subsequently a 6-Russian RCB catheter was used to cannulate the saphenous vein graft to the RCA. The 6-Russian pigtail catheter was used to cross the aortic valve and LVEDP was calculated. Following that angioplasty and stenting was performed. Following that, catheter and sheath were removed. Hemostasis was obtained with deployment of Angio-Seal. There was no immediate complication. Patient was returned to room in stable condition. Of note, the patient received a total of 7000 units of intravenous heparin as well as loading dose of clopidogrel. His ACT was followed. The patient had chest discomfort with inflation, some of it respirophasic and improved at the end of the procedure Angioplasty procedure: A 6-Russian 4 bend left Moe guiding catheter was introduced into system , after cannulating the left main a 0.014 BMW J-wire was positioned in the distal left circumflex, a 2.5 x 12 NC Treck was advanced and one inflation at 8 adam was done, subsequently a 2.5 x 15 mm Xience janey point stent was advanced, deployed and dilated at 16 adam. Images were obtained and reveal stable stenting. After removing the wire the patient continued to complain of chest discomfort, the wire was reintroduced and positioned distally, another wire 0.014 BMW J-wire was positioned in the landry fashion next the first one and a 2.25 x 12 mm Xience janey point was advanced distal to the first one and deployed at 14 adam. After removing the balloon an IVUS [place] eye ultrasound catheter was advanced and images were obtained following that the guidewire was removed and subsequently the guiding catheter. Hemostasis was obtained. There is no EKG changes. The discomfort was getting better. Findings: Left main: This is a short sized vessel, bifurcating into LAD and left circumflex, left main has no high-grade stenosis LAD: This vessel has a 95% stenosis proximally with slow antegrade flow. Left circumflex: This is a nondominant vessel giving rise to a proximal first obtuse marginal branch that has severe stenosis in the proximal segment up to 90% in the midsegment prior to the takeoff of the second and third obtuse marginal branch is a 95% eccentric lesion. RCA: This is a dominant vessel, bifurcating distally into PDA and PLV, large in caliber. The proximal right coronary artery has an 80% stenosis, there is diffuse intimal disease throughout the course of the vessel. Significant stenosis in the PLV was noted. Competitive flow into the graft was noted. CASTAÑEDA to the LAD: the distal anastomotic site is patent the flow into the LAD is brisk. Radial bypass to the obtuse marginal branch the proximal and distal anastomotic site are patent, the flow into the obtuse marginal branch is brisk. Saphenous vein graft to the diagonal branch: The proximal and distal anastomotic sites are patent the flow into the diagonal branch is brisk. Saphenous vein graft to the right coronary artery: The proximal and distal anastomotic site is patent. The flow into the PDA is brisk was retrograde flow into the PLV. Left Ventriculogram: Not performed Hemodynamics: There was no gradient across the aortic valve, LVEDP was 12-16 mmHg Conclusion: 1. Severe triple vessel disease 2. Patent CASTAÑEDA to the LAD 3. Patent saphenous vein graft to the RCA and diagonal branch 4. Patent radial bypass to the OM 1 5. Successful stenting of the mid left circumflex with reduction of the stenosis from 95% to 0%. Recommendations: I have recommended to continue aggressive coronary risks modifications with aspirin and Plavix for 6 months uninterrupted. The findings and the recommendations were discussed with the patient and the family and they were in full understanding and agreement. Duration of sedation is 82 minutes.
--- NOTE | 2022-02-17 11:35 | CA ---
Transthoracic Echo Report Name: Raúl Lang Age: 62 Gender: M : 1960 Exam Date: 02/17/2022 09:08 Exam Location: [facility] Ht (in): 72 Wt (lb): 201 Ordering Physician: Wen Bush MD Attending/Referring Phys: Special Programs Director Kim Gaona RDCS Procedure CPT: Indications: s/p cath r/o pericardial effusion/ wall motion abnormality Cardiac Hx: Technical Quality: Contrast 1: Total Dose (mL): Contrast 2: Total Dose (mL): MEASUREMENTS (Male / Female) Normal Values FINDINGS Left Ventricle Limited study. S/P cardiac cath. Left ventricular cavity size normal. Normal left ventricular systolic function with no obvious regional wall motion abnormalities. Left ventricular ejection fraction is estimated at 50-55 %. Right Ventricle Right Atrium Left Atrium Mitral Valve Aortic Valve Tricuspid Valve Pulmonic Valve Pericardium No pericardial effusion. Aorta CONCLUSIONS Atypical septal motion preserved LV systolic function no pericardial effusion Previewed by: Dr. Gerhard Moran MD (Electronically Signed) Final Date: 17 February 2022 11:34
[2022-02-17 13:19] VITALS: BMI 27.3
[2022-02-17] MEDS: ACETAMINOPHEN TAB 325 MG TAB PO PRN ×2 (13:30→20:16)
[2022-02-17] MEDS: METOPROLOL TARTRATE 25 MG TAB PO SCH (20:17)
[2022-02-17] MEDS ORDERED: TAMSULOSIN 0.4 MG CAP.ER.24H PO SCH (21:00)
[2022-02-18] MEDS: ACETAMINOPHEN TAB 325 MG TAB PO PRN ×2 (01:38→09:38)
[2022-02-18 04:59] VITALS: RESP 16
[2022-02-18] MEDS: SODIUM CHLORIDE 0.9% 1,000 ML in EMPTY BAG 1 BAG IV SCH (05:41)
[2022-02-18] MEDS ORDERED: PANTOPRAZOLE 40 MG TABLET PO SCH (07:30)
[2022-02-18 08:04] LABS: African American GFR (CKD) >90 (>60 ml/min/1.73 sqM); Anion Gap 7 mmol/L; Blood Urea Nitrogen 11 mg/dL (9-20); Calcium 9.4 mg/dL (8.4-10.2); Carbon Dioxide 23 mmol/L (22-30); Chloride 109 mmol/L (98-107); Glucose 106 mg/dL (74-99); Non-African American GFR(CKD) >90 (>60 ml/min/1.73 sqM); Sodium 139 mmol/L (137-145)
[2022-02-18] MEDS ORDERED: ASPIRIN 81 MG PO SCH (09:00)
[2022-02-18] MEDS ORDERED: EZETIMIBE 10 MG TAB PO SCH (09:00)
[2022-02-18] MEDS ORDERED: NON FORMULARY DRUG (Ubidecarenone [Co Q-10] 100 MG Capsule) PO SCH (09:00)
[2022-02-18] MEDS ORDERED: CLOPIDOGREL 75 MG TAB PO SCH (09:00)
[2022-02-18] MEDS ORDERED: ATORVASTATIN 40 MG TAB PO SCH (09:00)
[2022-02-18] MEDS: METOPROLOL TARTRATE 25 MG TAB PO SCH (09:35)
--- NOTE | 2022-02-18 10:06 | P.PN ---
Subjective Progress Note Date: 02/18/22 PROGRESS NOTE The patient is a 62-year-old male with a known history of The status post bypass grafting who presented with symptoms of angina pectoris and abnormal myocardial perfusion imaging, underwent cardiac catheterization and was found to have patent grafts significant disease in the mid left circumflex, underwent stenting of that vessel. He had some respirophasic pain after the procedure that wagner bsequently resolved. He's feeling well this morning, ambulating without difficulty. He denies any dizziness or palpitations. His echocardiogram showed no evidence of pericardial effusion was normal ventricle size and systolic function. He is in sinus mechanism. Medications: Aspirin once a day, Plavix 75 mg daily, Lipitor 40 mg daily, metoprolol tartrate 12-1/2 mg twice a day, Flomax,Zetia 10 mg daily PHYSICAL EXAMINATION: Blood pressure 132/70 heart rate 60 LUNGS: Clear to auscultation HEART: Regular rate and rhythm, S1, S2. No S3. No systolic murmur ABDOMEN: Soft, nontender, no organomegaly EXTREMETIES: No edema, right groin no hematoma LAB: EKG sinus mechanism with no acute changes, BUN 11, creatinine 0.88 IMPRESSION: 1. Status post stenting of the left circumflex 2. Status post CABG, patent grafts 3. Hypertension 4. Hyperlipidemia PLAN: 1. Patient will be discharged home today 2. He would continue on present therapy 3. He will be followed in the office in one week 4. Depending on his progress further recommendations will be made Objective - Vital Signs Vital signs: Vital Signs Temp 97.9 F 02/18/22 04:30 Pulse 69 02/18/22 04:30 Resp 16 02/18/22 04:30 BP 132/78 02/18/22 04:30 Pulse Ox 96 02/18/22 04:30 FiO2 Intake & Output 02/17/22 02/18/22 02/18/22 18:59 06:59 18:59 Intake Total 761 Output Total 1180 200 Balance -419 -200 Weight 91.4 kg Intake: IV 525 Oral 236 Output: Urine 1180 200 Other: Voiding Method Toilet - Labs CBC & Chem 7: 02/18/22 07:00 Labs: Abnormal Lab Results - Last 24 Hours (Table) 02/18/22 Range/Units 07:00 Chloride 109 H (98-107) mmol/L Glucose 106 H (74-99) mg/dL
[2022-02-18 10:12] VITALS: BP 117/72; PULSE 76; TEMP 98.2
== END 2022-02-18 11:14 | disposition home or self-care (01) ==
LOC: CATHCVL 06:10 → 3SCARD 11:21 → CATHCVL 02-18 11:14
PROVIDERS: ATTEND Internal Medicine Interventional Cardiology
DX: I25.119 Atherosclerotic heart disease of native coronary artery with unspecified angina pectoris (principal); R94.39 Abnormal result of other cardiovascular function study; E78.00 Pure hypercholesterolemia, unspecified; Z20.822 Contact with and (suspected) exposure to COVID-19; I10 Essential (primary) hypertension; Z87.891 Personal history of nicotine dependence; Z95.1 Presence of aortocoronary bypass graft; E78.5 Hyperlipidemia, unspecified; Z82.49 Family history of ischemic heart disease and other diseases of the circulatory system; Z90.49 Acquired absence of other specified parts of digestive tract; Z79.82 Long term (current) use of aspirin; Z79.899 Other long term (current) drug therapy; Z88.2 Allergy status to sulfonamides
CPT/HCPCS: 93308; 93459; 80048; 87635; C9600; C1769 ×3; C1760; C1887 ×2; C1725; C1894; C1753; C1874 ×2; J2250; J2001; J3010; J1644; Q9967 ×2

== ENCOUNTER 2022-02-19 04:41 | Emergency (ER) | payer OTHER ==
--- NOTE | 2022-02-19 05:10 | ED ---
Recheck HPI - General Chief Complaint: Skin/Abscess/Foreign Body Stated Complaint: Post op swelling and pain, Stints in leg Time Seen by Provider: 02/19/22 04:42 Source: patient Mode of arrival: ambulatory Limitations: no limitations - Related Data Home Medications Medication Instructions Recorded Confirmed Ascorbic Acid [Vitamin C] 500 mg PO DAILY 03/17/20 02/15/22 Cholecalciferol [Vitamin D3 (25 5,000 unit PO DAILY 03/17/20 02/15/22 Mcg = 1000 Iu)] [place]-3 Fatty Acids/Fish Oil [Fish 1 each PO BID 03/17/20 02/15/22 Oil 1,000 mg Softgel] Tamsulosin HCl [Flomax] 0.4 mg PO HS 03/17/20 02/15/22 Ubidecarenone [Co Q-10] 100 mg PO DAILY 03/17/20 02/15/22 Aspirin 81 mg PO DAILY 11/01/20 02/17/22 Ezetimibe [Zetia] 10 mg PO DAILY 11/01/20 02/17/22 Metoprolol Tartrate [Lopressor] 12.5 mg PO BID 11/01/20 02/17/22 Previous Rx's Medication Instructions Recorded Atorvastatin [Lipitor] 40 mg PO DAILY #30 tab 03/27/20 Pantoprazole [Protonix] 40 mg PO AC-BRKFST #30 tablet. 03/27/20 Clopidogrel [Plavix] 75 mg PO DAILY #90 tab 02/18/22 Allergies Allergy/AdvReac Type Severity Reaction Status Date / Time Sulfa (Sulfonamide Allergy Unknown Verified 02/19/22 04:53 Antibiotics) sulfamethoxazole Allergy Unknown Verified 02/19/22 04:53 [From Bactrim] trimethoprim [From Bactrim] Allergy Unknown Verified 02/19/22 04:53 Review of Systems ROS Statement: Those systems with pertinent positive or pertinent negative responses have been documented in the HPI. ROS Other: All systems not noted in ROS Statement are negative. Past Medical History Past Medical History: Cancer, Chest Pain / Angina, GERD/Reflux, Hyperlipidemia, Hypertension, Prostate Disorder Additional Past Medical History / Comment(s): skin cancer, shoulder stiffness History of Any Multi-Drug Resistant Organisms: None Reported Past Surgical History: Cholecystectomy, Coronary Bypass/CABG, Heart Judie terization With Stent, Orthopedic Surgery Additional Past Surgical History / Comment(s): arthroscopy knee, quad bypass 03-23-20 Past Anesthesia/Blood Transfusion Reactions: No Reported Reaction Past Psychological History: No Psychological Hx Reported Smoking Status: Never smoker Past Alcohol Use History: None Reported Past Drug Use History: None Reported - Past Family History Mother Family Medical History: CVA/TIA Father Family Medical History: Cancer Additional Family Medical History / Comment(s): colon cancer. General Exam Limitations: no limitations Course Vital Signs 02/19/22 04:50 Temperature 98.1 F Pulse Rate 92 Respiratory 18 Rate Blood Pressure 101/68 O2 Sat by Pulse 98 Oximetry Disposition Clinical Impression: Right groin pain, Postoperative pain Disposition: HOME SELF-CARE Condition: Good Instructions (If sedation given, give patient instructions): Pain Management (ED) Is patient prescribed a controlled substance at d/c from ED?: No Referrals: [place] DO [Primary Care Provider] - 1-2 days
--- NOTE | 2022-02-19 06:20 | US ---
EXAMINATION TYPE: US lower ext pseudo artery RT DATE OF EXAM: 02/19/2022 COMPARISON: NONE CLINICAL HISTORY: PSA. Heart cath x 2 days ago right groin. Patient states he felt a lump at cath si te. Limited visualization due to swelling at cath site and patient tenderness EXAM PERFORMED: Grayscale and color Doppler duplex imaging performed of the groin, post cardiac sofy ter to assess for pseudoaneurysm. SIDE PERFORMED: Right Color and Waveform Doppler performed to assess for the presence of pseudoaneurysm; Is there ultrasound evidence of a pseudoaneurysm: Limited visualization due to swelling. At time of scan, no PSA was identified. Is there a fluid collection present: no IMPRESSION: No evidence of pseudoaneurysm. There is arterial flow in the femoral artery.
[2022-02-19 06:46] VITALS: BP 134/85; PULSE 71; RESP 22; TEMP 97.7
== END 2022-02-19 06:45 | disposition home or self-care (01) ==
LOC: EC 04:41
DX: T85.848A Pain due to other internal prosthetic devices, implants and grafts, initial encounter (principal); R10.30 Lower abdominal pain, unspecified; K21.9 Gastro-esophageal reflux disease without esophagitis; E78.5 Hyperlipidemia, unspecified; I10 Essential (primary) hypertension; Z88.2 Allergy status to sulfonamides; Z79.899 Other long term (current) drug therapy
CPT/HCPCS: 93975; 99284

== ENCOUNTER → 2023-01-11 | Outpatient (CLI) | payer OTHER ==
--- NOTE | 2023-01-12 13:14 | CT ---
EXAMINATION TYPE: CT pelvis wo/w con CT DLP: 1453.0 mGycm, Automated exposure control for dose reduction was used. DATE OF EXAM: 01/11/2023 3:20 PM COMPARISON: None CLINICAL INDICATION:Male, 62 years old with history of R10.30; RT side groin pain x2mo. Suspected her dionna. TECHNIQUE: Axial CT of the pelvis. Sagittal and coronal reformats were created on a separate worksta tion. Contrast used:100 ml mL of Isovue 300 with IV Contrast, (none if empty) Oral contrast used: with Oral Contrast (none if empty) FINDINGS: BLADDER: Unremarkable REPRODUCTIVE: Unremarkable. STOMACH AND BOWEL: No evidence of bowel obstruction. The appendix is normal. PERITONEUM/RETROPERITONE UM: No evidence of pneumoperitoneum or free fluid. VASCULATURE: No evidence of aortic aneurysm. MUSCULOSKELETAL: No acute osseous abnormalities LYMPH NODES: No gross evidence for lymphadenopathy. SOFT TISSUE/ABDOMINAL WALL: Left fat-containing inguinal hernia. Tiny right fat containing inguinal h ernia. IMPRESSION: 1. Containing a right fat-containing inguinal hernia. Larger Fat-containing left inguinal hernia. 2. Normal appendix. No obstructive uropathy visualized.
== END | disposition home or self-care (01) ==
LOC: RADCTMAIN 13:17
PROVIDERS: ATTEND Family Medicine
DX: K40.90 Unilateral inguinal hernia, without obstruction or gangrene, not specified as recurrent (principal)
CPT/HCPCS: 72194; Q9967

== ENCOUNTER → 2023-05-10 | Outpatient (CLI) | payer OTHER ==
[2023-05-10 11:00] LABS: Basophils # (A) 0.12 X 10*3/uL (0.00-0.10); Basophils % (A) 1.9 %; Eosinophils # (A) 0.26 X 10*3/uL (0.04-0.35); HCT 46.8 % (39.6-50.0); HGB 15.3 d/dL (13.0-17.0); Lymphocytes # (A) 1.61 X 10*3/uL (0.90-5.00); MCH 29.2 pg (27.0-32.0); MCHC 32.7 d/dL (32.0-37.0); MCV 89.3 FL (80.0-97.0); Mean Platelet Volume 9.8 FL (9.5-12.2); Monocytes # (A) 0.81 X 10*3/uL (0.20-1.00); Monocytes % (A) 12.6 %; NRBC Per 100 WBC 0 X 10*3/uL (0.00-0.01); Neutrophils # (A) 3.63 X 10*3/uL (1.80-7.70); Neutrophils % (A) 56.3 %; Platelet Count 244 X 10*3/uL (140-440); RBC 5.24 X 10*6/uL (4.40-5.60); RDW 13.5 % (11.5-14.5); WBC 6.44 X 10*3/uL (4.50-10.00)
== END | disposition home or self-care (01) ==
LOC: LABWHC1 07:54
PROVIDERS: ATTEND Surgery
DX: Z01.818 Encounter for other preprocedural examination (principal); K46.9 Unspecified abdominal hernia without obstruction or gangrene; R00.1 Bradycardia, unspecified; R94.31 Abnormal electrocardiogram [ECG] [EKG]
CPT/HCPCS: 36415; 85025; 86850; 86900; 86901; 93005

== ENCOUNTER 2023-05-21 09:54 | Day surgery (SDC) | payer OTHER ==
[2023-05-15 11:37] VITALS: BMI 27.1
--- NOTE | 2023-05-21 09:34 | P.GSHP ---
History of Present Illness H&P Date: 05/21/23 Chief Complaint: Bilateral inguinal hernia 63-year-old male here for elective repair of bilateral inguinal hernia. Patient was having pain right greater than left groin. Radiated down his legs. Worse with sitting. Had a CAT scan showing bilateral inguinal hernia. Past Medical History Past Medical History: Coronary Artery Disease (CAD), Cancer, GERD/Reflux, Hyperlipidemia, Hypertension Additional Past Medical History / Comment(s): skin cancer, inguinal hernia History of Any Multi-Drug Resistant Organisms: None Reported Past Surgical History: Cholecystectomy, Coronary Bypass/CABG, Heart Catheterization, Heart Catheterization With Stent, Orthopedic Surgery Additional Past Surgical History / Comment(s): arthroscopy knee, quad bypass 03-23-20, heart cath with 2 stents (02/17/22) Past Anesthesia/Blood Transfusion Reactions: No Reported Reaction Date of Last Stent Placement:: 02/17/22 Past Psychological History: No Psychological Hx Reported Smoking Status: Never smoker Past Alcohol Use History: None Reported Past Drug Use History: None Reported - Past Family History Mother Family Medical History: CVA/TIA Father Family Medical History: Cancer Additional Family Medical History / Comment(s): colon cancer. Brother(s) Family Medical History: Cancer Additional Family Medical History / Comment(s): colon cancer Medications and Allergies Home Medications Medication Instructions Recorded Confirmed Type Ascorbic Acid [Vitamin C] 500 mg PO DAILY 03/17/20 05/15/23 History Cholecalciferol [Vitamin D3 (25 5,000 unit PO DAILY 03/17/20 05/15/23 History Mcg = 1000 Iu)] Tamsulosin HCl [Flomax] 0.4 mg PO HS 03/17/20 05/15/23 History Ubidecarenone [Co Q-10] 100 mg PO DAILY 03/17/20 05/15/23 History Atorvastatin [Lipitor] 40 mg PO DAILY #30 tab 03/27/20 05/15/23 Rx Aspirin 81 mg PO DAILY 11/01/20 05/15/23 History Ezetimibe [Zetia] 10 mg PO DAILY 11/01/20 05/15/23 History Metoprolol Tartrate [Lopressor] 12.5 mg PO BID 11/01/20 05/15/23 History Docusate [Colace] 100 mg PO DAILY 10/24/23 10/24/23 History [place]-3 Fatty Acids [[place]-3] 1,600 mg PO BID 05/15/23 05/15/23 History Pantoprazole (Unknown Dose) 1 dose PO DAILY 05/15/23 History Allergies Allergy/AdvReac Type Severity Reaction Status Date / Time Sulfa (Sulfonamide Allergy Rash/Hives, Verified 05/15/23 10:55 Antibiotics) itching sulfamethoxazole Allergy Unknown Verified 02/19/22 04:53 [From Bactrim] trimethoprim [From Bactrim] Allergy Unknown Verified 02/19/22 04:53 Surgical - Exam Physical exam: General: Well-developed, well-nourished HEENT: Normocephalic, sclerae nonicteric Abdomen: Nontender, nondistended, bilateral inguinal hernia left greater than right Extremities: No edema Neuro: Alert and oriented Assessment and Plan (1) Bilateral inguinal hernia Narrative/Plan: Will proceed with laparoscopic da Lory assisted repair of bilateral inguinal hernia with mesh, possible open. Risks of bleeding, infection, recurrence, bladder and bowel injury, numbness, nerve injury, conversion to an open procedure were discussed with the patient. The patient understands and wishes to proceed. Status: Acute Code(s): K40.20 - BI INGUINAL HERNIA, W/O OBST OR GANGRENE, NOT SPCF RECUR SNOMED Code(s): 01873207
[~2023-05-21 09:54] MED LIST changes: +ACETAMINOPHEN TAB 500 MG TAB PO PRN; +DEXAMETHASONE SOD PHOSPHATE 4 MG/ML 1 ML VIAL IV ONE; +HEPARIN SODIUM,PORCINE/PF 5,000 UNIT/0.5 ML SYRINGE SQ PRN; +HYDROmorphone 0.5 MG/0.5 ML SYRINGE IVP PRN; -MIDAZOLAM 2 MG/2 ML VIAL IV PRN; +ONDANSETRON 4 MG/2 ML VIAL IVP ONE; +droPERidol 5 MG/2 ML VIAL IVP PRN
[2023-05-21] MEDS: TAMSULOSIN 0.4 MG CAP.ER.24H PO ONE ×2 (11:17→17:55)
[2023-05-21] MEDS ORDERED: MIDAZOLAM 2 MG/2 ML VIAL IVP ONE (11:23)
[2023-05-21] MEDS ORDERED: ROPIVACAINE 5 MG/ML 30 ML VIAL ONE (11:40)
[2023-05-21] MEDS ORDERED: PROPOFOL 10 MG/ML 20 ML VIAL IV ONE (11:40)
[2023-05-21] MEDS ORDERED: ROCURONIUM 10 MG/ML (5 ML VIAL) IV ONE (11:40)
[2023-05-21] MEDS ORDERED: PHENYLEPHRINE-0.9% NACL SYG 1,000 MCG/10 ML SYRINGE ONE (11:40)
[2023-05-21] MEDS ORDERED: fentaNYL (PF) 50 MCG/ML 2 ML AMP ONE (11:40)
[2023-05-21] MEDS ORDERED: GLYCOPYRROLATE 0.2 MG/ML 2 ML VIAL ONE (11:40)
[2023-05-21] MEDS ORDERED: KETOROLAC 15 MG/ML 1 ML VIAL ONE (11:40)
[2023-05-21] MEDS ORDERED: DEXAMETHASONE SOD PHOSPHATE 4 MG/ML 1 ML VIAL ONE (11:40)
[2023-05-21] MEDS ORDERED: SUCCINYLCHOLINE CHLORIDE 200 MG/10 ML VIAL IV ONE (11:40)
[2023-05-21] MEDS ORDERED: KETAMINE HCL IN 0.9 % NACL 50 MG/5 ML SYRINGE ONE (11:40)
[2023-05-21] MEDS ORDERED: NEOSTIGMINE 1 MG/ML 10 ML VIAL ONE (11:40)
[2023-05-21] MEDS ORDERED: LIDOCAINE 1% INJ 10MG/ML (20 ML MDV) ONE (11:40)
[2023-05-21] MEDS ORDERED: BUPIVACAINE (PF) 0.25% 30 ML VIAL SQ ONE ×3 (11:51→12:09)
[2023-05-21] MEDS ORDERED: LACTATED RINGERS 1,000 ML IV ONE (13:14)
[2023-05-21] MEDS ORDERED: ACETAMINOPHEN TAB 325 MG TAB PO SCH (14:00)
--- NOTE | 2023-05-21 14:00 | P.OP ---
Date of Procedure: 05/21/23 Procedure(s) Performed: PREOPERATIVE DIAGNOSIS: Bilateral inguinal hernia POSTOPERATIVE DIAGNOSIS: Same PROCEDURE: Laparoscopic da Lory assisted repair bilateral inguinal hernia with mesh SURGEON: Dr. Bean ANESTHESIA: General OPERATIVE PROCEDURE DETAILS: Patient was placed in the operating table in the wagner pine position. The patient was placed under general anesthesia. The abdomen was prepped and draped in usual sterile fashion. A small curvilinear supraumbilical incision was made. The fascia was retracted anteriorly with Lida forceps. The Veress needle was inserted. The saline drop test was normal. Insufflation took place to 15 mmHg. An 8 mm trocar was placed into the peritoneal cavity. 2 additional 8 mm trochars were placed in the right upper quadrant and left upper quadrant under visualization. The robotic arms were then brought in and docked into place. The fenestrated bipolar was used in the left arm and the laparoscopic anne was utilized in the right arm. A 30 8 mm scope was used in the up position. The peritoneal cavity was inspected. The patient had a small direct hernia on the left and a small indirect hernia on the right. A incision was created on the peritoneum across the lower abdomen superior to the bladder. The preperitoneal dissection took place bilaterally at that time. Both hernias and peritoneal flaps were carefully dissected bilaterally. Davonte's ligament and the pubic symphysis were well-visualized. Once we had full dissection in both sacs fully reduced 2 separate 15 x 10 mm Progrip mesh were placed within the abdomen crossing one another in the midline. These were then sutured to the Davonte's ligament across the pubic symphysis to the opposite side using a running 30 absorbable V lock suture. The same stitch was then brought to the midline and the mesh was sutured to the abdominal wall in the midline superiorly. When the suture was used in the midline near the rectus a small area of bleeding was noted. This was controlled using a [id number] 3-0 silk stitch. This covered all hernia spaces nicely. The peritoneal defect was then closed bilaterally using a absorbable 2-0 VLok suture. The hernia sacs were incorporated into the peritoneal closure to help prevent future recurrence. The pneumoperitoneum was then evacuated. The skin of all 3 sites was closed using a 4-0 Monocryl stitch. Skin glue was then applied. TYPE OF MESH USED: Progrip 15 x 10 LOCATION OF MESH: Preperitoneal/sub-lay FIXATION: Absorbable 30V lock PREOPERATIVE DISCUSSION ON SMOKING CESSASTION: Yes PREOPERATIVE DISCUSSION ON MORBID OBESITY: Yes PREOPERATIVE DISCUSSION ON APPROPRIATE USE OF NARCOTIC USE: Yes PREOPERATIVE EDUCATION: Multi Modal, Smoking Cessation and Weight Loss with BMI over 35. DISPOSITION: Stable to recovery room
[2023-05-21 14:02] VITALS: TEMP 97.6
--- NOTE | 2023-05-21 14:58 | P.ANPRN ---
Procedure Note - Anesthesia - Nerve Block Performed Bilateral Transversus Abdominis Single Time Out Performed: Yes Date of Procedure: 05/21/23 Procedure Start Time: Procedure Stop Time: Location of Patient: PreOp Indication: Acute Post-Operative Pain, Requested by Surgeon Sedation Type: Sedate with meaningful contact maintained Preparation: Sterile Prep, Sterile Dressing Position: Supine Needle Types: Pajunk Needle Gauge: 21 Ultrasound used to visualize needle placement: Yes Ultrasound used to observe medication spread: Yes Blood Aspirated: No Pain Paresthesia on Injection Noted: No Resistance on Injection: Normal Image Stored and Saved: Yes Events: Uneventful and Well Tolerated (Ropivacaine 0.5% 20 mL plus dexamethasone 4 mg given bilaterally)
[2023-05-21 15:11] VITALS: PULSE 67
[2023-05-21 15:34] VITALS: BP 135/75; RESP 20
[2023-05-21] MEDS ORDERED: IBUPROFEN 600 MG TAB PO SCH (17:00)
== END 2023-05-21 18:34 | disposition home or self-care (01) ==
LOC: OR 09:54
PROVIDERS: ATTEND Surgery
DX: K40.90 Unilateral inguinal hernia, without obstruction or gangrene, not specified as recurrent (principal); K40.20 Bilateral inguinal hernia, without obstruction or gangrene, not specified as recurrent; I10 Essential (primary) hypertension; I25.10 Atherosclerotic heart disease of native coronary artery without angina pectoris; K21.9 Gastro-esophageal reflux disease without esophagitis; E78.5 Hyperlipidemia, unspecified; Z80.0 Family history of malignant neoplasm of digestive organs; Z88.1 Allergy status to other antibiotic agents; Z82.3 Family history of stroke; Z95.1 Presence of aortocoronary bypass graft; Z95.5 Presence of coronary angioplasty implant and graft; Z88.2 Allergy status to sulfonamides; Z90.49 Acquired absence of other specified parts of digestive tract; Z85.828 Personal history of other malignant neoplasm of skin; Z79.1 Long term (current) use of non-steroidal anti-inflammatories (NSAID); Z79.899 Other long term (current) drug therapy
CPT/HCPCS: 64488; 49650; C1781; J2250; J0330; J1100; J2710; J0690; J2405; J2001; J3010; J2795; J1885; J2704; J1170; J1644; J2371; J0665

== ENCOUNTER → 2023-06-18 | Outpatient (CLI) | payer OTHER ==
[2023-06-18 16:09] LABS: HCT 43.7 % (39.6-50.0); HGB 14.8 g/dL (13.0-17.0); MCH 29.5 pg (27.0-32.0); MCHC 33.9 g/dL (32.0-37.0); MCV 87.2 FL (80.0-97.0); Mean Platelet Volume 10.1 FL (9.5-12.2); NRBC Per 100 WBC 0 X 10*3/uL (0.00-0.01); Platelet Count 228 X 10*3/uL (140-440); RBC 5.01 X 10*6/uL (4.40-5.60); RDW 13.5 % (11.5-14.5); WBC 5.93 X 10*3/uL (4.50-10.00)
[2023-06-18 16:40] LABS: Blood Urea Nitrogen 11.2 mg/dL (9.0-27.0); Chloride 105 mmol/L (96-109); Chol/HDL Ratio 2.37 Ratio; LDL Cholesterol,Calculated 68.1 mg/dL (0.0-131.0); Potassium 4.6 mmol/L (3.5-5.5); Sodium 141 mmol/L (135-145); VLDL Calculation 9.88 mg/dL (5.00-40.00)
[2023-06-18 16:41] LABS: ALT 23 U/L (10-49); AST 19 U/L (14-35)
== END | disposition home or self-care (01) ==
LOC: LABPAT 09:34
PROVIDERS: ATTEND Internal Medicine Interventional Cardiology
DX: Z01.812 Encounter for preprocedural laboratory examination (principal); I25.810 Atherosclerosis of coronary artery bypass graft(s) without angina pectoris
CPT/HCPCS: 80051; 80061; 82565; 84450; 84460; 84520; 85027

== ENCOUNTER → 2023-06-18 | Outpatient (CLI) | payer OTHER | END | disposition home or self-care (01) | LOC: LABWHC1 09:36 | PROVIDERS: ATTEND Internal Medicine Interventional Cardiology | DX: Z53.9 Procedure and treatment not carried out, unspecified reason (principal) ==

== ENCOUNTER 2023-06-27 07:50 | Day surgery (SDC) | payer OTHER ==
[~2023-06-27 07:50] MED LIST changes: -ACETAMINOPHEN TAB 500 MG TAB PO PRN; +ALPRAZolam 0.25 MG TAB PO PRN; +ALPRAZolam 0.5 MG TAB PO PRN; +ASPIRIN 325 MG TAB PO ONE; -DEXAMETHASONE SOD PHOSPHATE 4 MG/ML 1 ML VIAL IV ONE; -HEPARIN SODIUM,PORCINE/PF 5,000 UNIT/0.5 ML SYRINGE SQ PRN; -HYDROmorphone 0.5 MG/0.5 ML SYRINGE IVP PRN; -LACTATED RINGERS 1,000 ML IV SCH; -LIDOCAINE 1% (10MG/ML) FOR IV START INTRADERMA PRN; +NITROGLYCERIN SL TABS 0.4 MG TAB SUBLINGUAL PRN; -ONDANSETRON 4 MG/2 ML VIAL IVP ONE; +SODIUM CHLORIDE 0.9% 1,000 ML in EMPTY BAG 1 BAG IV SCH; -droPERidol 5 MG/2 ML VIAL IVP PRN
[2023-06-27 08:44] VITALS: RESP 18; TEMP 97.3
[2023-06-27] MEDS ORDERED: LIDOCAINE 1% INJ 10MG/ML (20 ML MDV) ONE (09:13)
[2023-06-27] MEDS ORDERED: fentaNYL (PF) 50 MCG/ML 2 ML AMP ONE (09:28)
[2023-06-27] MEDS ORDERED: LIDOCAINE 1% INJ 10MG/ML (30 ML VIAL-PF) SQ ONE (09:57)
[2023-06-27] MEDS ORDERED: fentaNYL (PF) 50 MCG/1 ML VIAL IVP ONE (09:57)
[2023-06-27] MEDS: MIDAZOLAM 2 MG/2 ML VIAL IVP ONE ×2 (09:59→10:02)
[2023-06-27] MEDS ORDERED: IOPAMIDOL-370 100ML BTL INJ ONE ×2 (10:12→10:14)
[2023-06-27] MEDS ORDERED: RX INFO: IV CONTRAST WAS GIVEN 1 EACH MISC MISCELLANE PRN (10:31)
--- NOTE | 2023-06-27 10:40 | P.CARDCATH ---
Date of Procedure: 06/27/23 Description of Procedure: Cardiac Catheterization: The patient is a 63-year-old male with a known history of CAD, status post CABG and PCI in January 2022 who has been complaining of symptoms of chest discomfort. Recommendations were made regarding cardiac catheterization, the risks and the complications were discussed with the patient who is in full understanding and agreement. 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 Using Xylocaine Anesthesia and modified Seldinger technique, using a micropuncture catheter a 6-Persian sheath was introduced in the right femoral artery . Subsequently, selective coronary angiography was performed using a 6-Persian 4 bend Moe catheter. Multiple views of the coronary artery including hemiaxial views were obtained. The right Moe was used to cannulate the grafts including the JOHANNE, images of the grafts were obtained. The pigtail catheter was used to cross the aortic valve and LVEDP was calculated. Following that, catheter and sheath were removed. Hemostasis was obtained with deployment of an Angio-Seal . There was no immediate complication. Patient was returned to room in stable condition. Findings: Left main: This is a short sized vessel bifurcating into LAD and left circumflex, the distal main has 30% plaque. LAD: This vessel has a 99% stenosis proximally with minimal antegrade flow. Left circumflex: This is a nondominant vessel giving rise to 2 obtuse margin branch, the first obtuse marginal branch has a tubular 90% stenosis there is evidence of retrograde filling of the graft. The stented segment distal to the first obtuse marginal branch is patent with no evidence of significant in-stent restenosis. RCA: This is a large dominant vessel, bifurcating into PDA and PLV. The proximal RCA has a 70% stenosis. The mid RCA has a 50% to 60% stenosis. The PDA has diffuse intimal disease proximally the PLV has an area of stenosis up to 90%, the vessel beyond this morning caliber, there is retrograde filling into the SVG. SVG to the RCA: The proximal and distal anastomotic site is patent. The flow into the PDA is brisk. There is no evidence of high-grade stenosis SVG to the diagonal branch: The proximal and distal anastomotic sites are patent the flow into the diagonal branch is brisk there is retrograde flow noted Radial bypass to the first OM: the proximal and distal anastomotic site are patent, the flow into the obtuse margin branch is brisk with no obstructive disease CASTAÑEDA to the LAD: The distal anastomotic site is patent the flow into the LAD risk with no obstructive disease. Left Ventriculogram: Not performed Hemodynamics: There was no gradient across the aortic valve , LVEDP was 4- 6 mmHg Conclusion: 1. Severe triple vessel disease 2. Patent stent to the circumflex 3. Patent CASTAÑEDA to the LAD 4. Patent SVG to the PDA 5. Patent SVG to the diagonal branch 6. Patent radial to the OM Recommendations: I see no evidence of significant progression of disease, I have recommended co ntinue present therapy. The patient could have some symptoms of chest discomfort related to the PLV vessel. The findings and the recommendations were discussed with the patient and the family and they were in full understanding and agreement. Duration of sedation is 20 minutes.
[2023-06-27] MEDS ORDERED: SODIUM CHLORIDE 0.9% 1,000 ML IV SCH (10:45)
[2023-06-27 14:18] VITALS: BP 97/46; PULSE 64
[2023-06-27] MEDS ORDERED: ACETAMINOPHEN TAB 325 MG TAB PO PRN (14:18)
[2023-06-27] MEDS ORDERED: METOPROLOL TARTRATE 12.5 MG TAB PO SCH (21:00)
[2023-06-28] MEDS ORDERED: ASPIRIN 81 MG PO SCH (09:00)
[2023-06-28] MEDS ORDERED: ATORVASTATIN 40 MG TAB PO SCH (09:00)
[2023-06-28] MEDS ORDERED: ISOSORBIDE MONONITRATE ER 30 MG TAB.ER.24H PO SCH (09:00)
== END 2023-06-27 15:33 | disposition home or self-care (01) ==
LOC: CATHCVL 07:50
PROVIDERS: ATTEND Internal Medicine Interventional Cardiology
DX: I25.810 Atherosclerosis of coronary artery bypass graft(s) without angina pectoris (principal); I10 Essential (primary) hypertension; E78.5 Hyperlipidemia, unspecified; Z79.82 Long term (current) use of aspirin; Z79.899 Other long term (current) drug therapy; Z79.1 Long term (current) use of non-steroidal anti-inflammatories (NSAID); Z88.2 Allergy status to sulfonamides; Z82.49 Family history of ischemic heart disease and other diseases of the circulatory system
CPT/HCPCS: 93459; C1760; C1769 ×2; C1894; J2250; J2001; Q9967; J3010